=== PATIENT | female | born 1940 | race Caucasian/White ===

== ENCOUNTER 2018-06-08 10:06 | Outpatient (CLI) | payer OTHER, SELFPAY ==
[2018-06-08 13:29] LABS: ALT 20 U/L (12-78); AST 17 U/L (15-37); Albumin 3.7 g/dL (3.4-5.0); Alkaline Phosphatase 82 U/L (46-116); Anion Gap 9.9 mmol/L (3-11); BUN 14 mg/dL (7-18); Bilirubin, Total 0.7 mg/dL (0.2-1.0); CO2 27.1 mmol/L (21.0-32.0); CREATININE 1.02 mg/dL (0.55-1.02); Calcium 8.9 mg/dL (8.5-10.1); Chloride 105 mmol/L (98-107); Estimated GFR 52.69 (mL/min/1.73m2); Glucose 94 mg/dL (70-100); Potassium 4.3 mmol/L (3.5-5.1); Sodium 142 mmol/L (136-145); Total Protein 6.8 g/dL (6.4-8.2)
== END 2018-06-08 10:26 ==
DX: I10 Essential (primary) hypertension (principal)
CPT/HCPCS: 36415; 80053

== ENCOUNTER 2022-01-29 01:57 | Outpatient (CLI) | payer MEDICARE, SELFPAY ==
[2022-01-29 11:09] LABS: ALT 10 U/L (14-59); AST 12 U/L (15-37); Albumin 3.5 g/dL (3.4-5.0); Alkaline Phosphatase 93 U/L (46-116); Anion Gap 8.4 mmol/L (3-11); BUN 24 mg/dL (7-18); Bilirubin, Total 0.7 mg/dL (0.2-1.0); CO2 25.6 mmol/L (21.0-32.0); CREATININE 1.3 mg/dL (0.55-1.02); Calculated LDL 163 mg/dL (<100); Chloride 106 mmol/L (98-107); Cholesterol 237 mg/dL (<200); Estimated GFR 39.41 (mL/min/1.73m2); Glucose 94 mg/dL (74-106); HDL Cholesterol 62 mg/dL (40-60); Potassium 4.2 mmol/L (3.5-5.1); Sodium 140 mmol/L (136-145); Total Protein 7.3 g/dL (6.4-8.2); Triglyceride 62 mg/dL (<150)
== END 2022-01-29 01:58 | disposition home or self-care (01) ==
LOC: LBO 01:57
DX: I10 Essential (primary) hypertension (principal); E78.2 Mixed hyperlipidemia
CPT/HCPCS: 36415; 80053; 80061

== ENCOUNTER 2022-06-20 04:29 | Inpatient (IN) | payer MEDICARE, SELFPAY ==
[2022-06-20] VITALS (22 sets, daily range): BP systolic 76–185; BP diastolic 54–101; PULSE 52–79; RESP 16–26; TEMP 35.2–37.2; O2SAT 94–100; BMI 30.8
--- NOTE | 2022-06-20 04:28 | W.ED.GENAD ---
Discharge Plan Disposition Patient Disposition: [facility] INPATIENT Condition: Stable Discharge Details Chief Complaint: Orthopedic Clinical Impression: Femoral neck fracture Primary Care Provider: Francine Bull ED Provider: Harley Motta Home Meds and New Rx's Prescriptions: No Action acetaminophen 500 mg tablet 500 mg PO TID PRN PRN lisinopril 20 mg tablet 20 mg PO DAILY Qty: 90 3RF triamcinolone acetonide 0.1 % cream 1 applic topical BID Qty: 30 2RF Rx Instructions: Apply thin layer to leg rash 2x per day for up to 2 weeks amlodipine 5 mg tablet 5 mg PO DAILY Qty: 90 3RF Medical Decision Making 81-year-old female presents after mechanical fall from standing, fell on her left side, pain to left hip, foreshortened and externally rotated left lower extremity, DP pulse intact, sensation intact warm well perfused, able to wiggle toes, high clinical suspicion for hip fracture versus dislocation. No loss of conscious no head trauma or thoracoabdominal trauma. Will obtain admission labs, COVID swab, x-ray pelvis and x-ray femur, likely admission for orthopedic evaluation. We will start with analgesia and anti-inflammatory here 6: 07 evidence of left femoral neck fracture, neurovascular exam of limb intact. Controlling pain with Toradol and morphine. Patient is NPO. Discussed case with Dr. Aquino, patient to be admitted to medical service for preop management HPI General Date/Time Provider Initiated Documentation: 06/20/22 04:53. HPI Narrative: 81-year-old female presents after mechanical fall from standing while getting up to close the door of the restroom this evening, fell on her left side pain to her left hip, brought in by EMS. Patient denies loss of consciousness or other injuries. Denies blood thinner use. Related Data Home Medications Medication Instructions Recorded Confirmed acetaminophen 500 mg tablet 500 mg PO TID PRN PRN 02/05/22 06/20/22 triamcinolone acetonide 0.1 % 1 applic topical BID #30 grams 02/07/22 06/20/22 topical cream amlodipine 5 mg tablet 5 mg PO DAILY #90 tabs 05/15/22 06/20/22 lisinopril 20 mg tablet 20 mg PO DAILY #90 tabs 05/23/22 06/20/22 Previous Rx's Medication Instructions Recorded triamcinolone acetonide 0.1 % 1 applic topical BID #30 grams 02/07/22 topical cream amlodipine 5 mg tablet 5 mg PO DAILY #90 tabs 05/15/22 lisinopril 20 mg tablet 20 mg PO DAILY #90 tabs 05/23/22 Allergies Allergy/AdvReac Type Severity Reaction Status Date / Time Penicillins Allergy Unknown Verified 05/23/22 09:16 Review of Systems Narrative: Review of Systems Constitutional: negative Eyes: negative ENT: negative Cardiovascular: negative Respiratory: negative Gastrointestinal: negative : negative Musculoskeletal: Left hip pain Skin: negative Neurologic: negative Psych: negative PFSH All Active Problems (Updated 06/20/22 @ 06:08 by Harley Motta MD) Femoral neck fracture (Acute) Dermatitis (Acute) Obesity (BMI 30.0-34.9) (Chronic) Arthritis (Chronic) HTN (hypertension) (Chronic) Numbness and tingling (Chronic) Hyperlipidemia (Chronic) 01/2022 Lipids=45% calc. risk (BP not well controlled & declines statin in past) Medical History (Updated 06/20/22 @ 06:08 by Harley Motta MD) Breast lump or mass (07/24/04) left breast lump--mammo [place] [facility] [place] 04/2005 Right lumbar radiculopathy Tobacco use disorder quit 2004 Family History Mother , AGE 72 Osteoporosis Father , AGE 72 Diabetes Essential hypertension Heart disease Myocardial infarction Stroke Asthma Sister Heart disease Sister Essential hypertension Sister Essential hypertension Sister Essential hypertension Sister Essential hypertension Brother Essential hypertension Brother Essential hypertension Son No problems noted. Son Hyperlipidemia Son Asthma Daughter No problems noted. Brother No problems noted. 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 Pets and animals: Yes Pets and animals: cat(s) and dog(s) Sexually active: No Do you think of yourself as: straight/heterosexual Current gender identity: female What is your relationship status?: How often do you talk on the phone with friends or family?: once per week How often do you get together with friends or relatives?: decline to answer How often do you attend jain or taoist services?: decline to answer Do you belong to any clubs or organized social groups?: no Panel score (0-1 are the most socially isolated patients): 1 What type of physical activity do you participate in: walking Duration: < 15 minutes/day Frequency: 3-4 times per week Anna/Adventist: Adventism Special anna needs: No Seatbelt use: always Helmet use: Yes Helmet use: always Do you feel safe at home: Yes Do you feel safe in your relationship?: Yes Exam Narrative Exam Narrative: Physical Examination General: alert, awake, cooperative, resting comfortably, no acute distress HEENT: normocephalic, atraumatic; PERRL, EOM intact, conjunctiva normal; no nasal discharge; moist mucous membranes, oral and pharyngeal mucosa normal, tolerating secretions Neck: supple, trachea midline; full ROM Chest: normal to inspection Respiratory: normal respiratory effort, speaking in full sentences, clear to auscultation, no wheezing, rales or rhonchi Cardiac: regular rate, regular rhythm, S1S2 intact, no murmurs rubs or gallops GI: abdomen soft, non-tender, non-distended; no palpable mass or hepatosplenomegaly Skin: no lesions, rashes or trauma appreciated Neuro: AAOx3, normal speech, no focal deficits Extremities: Foreshortened externally rotated left lower extremity, DP pulse intact, sensation intact motor and sensation foot intact Psych: Appropriate mood and affect
[2022-06-20] MEDS: Ketorolac 15 MG/ML VIAL IVP (04:36)
[2022-06-20] MEDS: MORPHine 4 MG/ML SYR 2 MG IVP (04:37)
[2022-06-20] MEDS: Ondansetron 4 MG/2 ML VIAL IVP (04:38)
[2022-06-20 04:42] LABS: Source Nasopharynx
[2022-06-20 04:43] LABS: Abs Immature Grans 0.04 10^3/uL (0.0-0.06); Absolute Basophil Count 0.04 10^3/uL (0.0-0.2); Absolute Eosinophil Count 0.07 10^3/uL (0.0-0.7); Absolute Monocyte Count 0.59 10^3/uL (0.1-0.8); Absolute Neutrophil Count 8.25 10^3/uL (1.2-6.7); Basophils % 0.4; Eosinophils % 0.7; HGB 13.2 g/dL (11.2-15.7); Immature Grans % 0.4; Lymphocytes % 10.9; MCHC 32.2 % (32.0-36.0); MCV 90 fL (80-95); MPV 8.8 fL (8.0-11.0); Monocytes % 5.8; Neutrophils % 81.8; Platelet Count 439 10^3/uL (130-400); RBC 4.55 10^6/uL (3.93-5.22); RDW-SD 42.7 fL; WBC 10.09 10^3/uL (4.4-10.8)
[2022-06-20 04:59] LABS: ALT 14 U/L (14-59); AST 22 U/L (15-37); Albumin 3.3 g/dL (3.4-5.0); Alkaline Phosphatase 94 U/L (46-116); Anion Gap 12.3 mmol/L (3-11); BUN 23 mg/dL (7-18); Bilirubin, Total 0.4 mg/dL (0.2-1.0); CO2 20.7 mmol/L (21.0-32.0); CREATININE 1.4 mg/dL (0.55-1.02); Calcium 9.5 mg/dL (8.5-10.1); Chloride 102 mmol/L (98-107); Estimated GFR 38.03 (mL/min/1.73m2); Glucose 139 mg/dL (74-106); Potassium 4.1 mmol/L (3.5-5.1); Sodium 135 mmol/L (136-145)
[2022-06-20 05:14] LABS: COVID-19 PCR Negative (Negative)
--- NOTE | 2022-06-20 05:30 | DI.RAD_ITS ---
Exam(s) XR PELVIS AP XR FEMUR LT EXAM: XR PELVIS AP and x-ray femur LT CLINICAL HISTORY: fall, concern for left hip fracture v dislocation. TECHNIQUE: 2D digital imaging was performed. Six images were obtained. COMPARISON: None. FINDINGS: BONES: There is an acute fracture of the left femoral neck. The femoral head remains seated within t he acetabulum. No other fractures identified. No bony destructive lesion is seen. JOINTS: No dislocation present. No joint space narrowing is present. SOFT TISSUE: Atherosclerosis is present. IMPRESSION: Acute left femoral neck fracture. DATA REPOSITORY: RADIATION DOSE DELIVERED:
--- NOTE | 2022-06-20 05:46 | DI.VRAD_ITS ---
PROCEDURE INFORMATION: Exam: XR Pelvis Exam date and time: 06/20/2022 5:11 AM Age: 81 years old Clinical indication: Injury or trauma; Fall; Blunt trauma (contusions or hematomas); Left; Hip; Injury date: 06/20/22 TECHNIQUE: Imaging protocol: Radiologic exam of the pelvis. Views: 1 or 2 view. COMPARISON: No relevant prior studies available. Reviewed in conjunction with concurrent x-ray examination of the left femur. FINDINGS: Bones/joints: Acute basicervical fracture of left femur. No subluxation. Degenerative changes of the hip joints. Soft tissues: Unremarkable. IMPRESSION: Acute left hip fracture. Dictated and Authenticated by: Barry Laboy MD. Ordering:SARAH Souza MD
--- NOTE | 2022-06-20 05:48 | DI.VRAD_ITS ---
PROCEDURE INFORMATION: Exam: XR Left Femur Exam date and time: 06/20/2022 5:12 AM Age: 81 years old Clinical indication: Injury or trauma; Fall; Blunt trauma; Hip; Left; Injury date: 06/20/22 TECHNIQUE: Imaging protocol: Radiologic exam of the Left femur. Views: 2 views. COMPARISON: CR XR PELVIS AP 06/20/2022 5:11 AM FINDINGS: Bones/joints: Acute basicervical fracture. No subluxation. Degenerative changes of hip and knee joints. Soft tissues: Vascular calcifications. IMPRESSION: Acute basicervical fracture of the femur. Dictated and Authenticated by: Barry Laboy MD. Ordering:SARAH Souza MD
[2022-06-20] MEDS: MORPHine 10 MG/ML VIAL 2 MG IVP (06:03)
--- NOTE | 2022-06-20 07:14 | W.PM.HP.N ---
Date of service: 06/20/22 Time of Service: 07:15 Assessment and Plan Assessment and plan (1) Femoral neck fracture: Status: Acute Assessment and plan: proceed w/ operative repair of hip; use SCD preop; lovenox post op for dvt prophylaxis, PPI for GI protection, scheduled Tylenol and prn morphine for pain; prn antiemetics; IS and Acapella for pulmonary toiletry Professional time spent interviewing and examining patient, discussion of goals of care with hospital team ( nursing and consulting professionals, patient and family) was 60 minutes. (2) HTN (hypertension): Status: Chronic Assessment and plan: hold lisinopril perioperatively but continue amlodipine; I would recommend perioperative use of lopressor for BP control however, patient has LAFB and incomplete RBBB on her EKG and she was given a partial dose of lopressor and received only about 3 mg of a 5 mg dose and experience immediate bradycardia down to 52 bpm. I would avoid AV mehran blocking drugs. If BP becomes a problem perioperatively she can receive nicardipine; however, I will give her amlodipine preoperatively. Post operatively she can resume her lisinpril. 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 If parenteral medications for blood pressure control are needed I would use a vasodilator that does not have any AV mehran blocking activity. She has no old EKG on file to compare with therefore we have no time frame in which she developed this AV mehran defect. (4) Hyperlipidemia: Status: Chronic Assessment and plan: not being treated currently, formerly treated w/ lipitor and prior to that simvastatin. Qualifiers: Hyperlipidemia type: mixed hyperlipidemia Qualified Code(s): E78.2 - Mixed hyperlipidemia History of Present Illness History of Present Illness Chief Complaint: left hip fracture Narrative: 81 yr female w/ PMH of HTN whoh had mechanical fall and sustained left femoral neck fracture. Dr. Aquino was notified by Dr. Metz from [facility] ED and per Dr. Metz, Dr. Aquino requested patient admission to hospitalist service. The plan is for surgical repair later today. Patient denies any syncope or presyncopal symptoms but states that she was returning to the bedroom from the bathroom when she lost her balance and fell to the floor on her left side. She struck the vanity on the way down but did not sustain any head or neck injuries. She denies any symptoms of palpitations, or dyspnea or chest pain. Prior to her fall she states that she has had no exertional dyspnea or chest discomfort w/ her ADL's or w/ grocery shopping or her usual housework. She denies any cardiac hx such as ND, CVA, CHF, and denies any DM. She has never had surgery and therefore does not know if she has had any complications from anesthesia. She is a former smoker who quit about 6 yrs ago, smoking < 1/2 ppd x 20-30 yrs. She drinks wine w/ meals about one small glass per evening. No hx of withdrawal. Note: I called her PCP office at [facility] to try to get any old EKG to compare to today's EKG. None on file. However, contrary to patient's hx she did have surgery. She had bilateral catarract surgery by Dr. Wells in 2016. Review of Systems Constitutional Constitutional: Reports as per HPI Eyes Eyes: Reports system reviewed and no additional complaints, except as documented ENT Ears, Nose, Mouth, and Throat: Reports system reviewed and no additional complaints, except as documented, Denies dysphagia, Denies odynophagia and Denies throat swelling Cardiovascular Cardiovascular: Denies chest pain, Denies chest pain with activity, Denies irregular heart rhythm, Denies lightheadedness, Denies radiating jaw, neck or arm pain and Denies dyspnea on exertion Respiratory Respiratory: Denies cough and Denies dyspnea on exertion Gastrointestinal Gastrointestinal: Reports system reviewed and no additional complaints, except as documented, Denies dysphagia and Denies odynophagia Genitourinary Genitourinary: Reports system reviewed and no additional complaints, except as documented Musculoskeletal Musculoskeletal: Reports as per HPI, Reports arthralgias and Reports radiating pain into limb Integumentary/Breasts Skin/Breast: Reports system reviewed and no additional complaints, except as documented Neurologic Neurologic: Reports system reviewed and no additional complaints, except as documented Endocrine Endocrine: Reports system reviewed and no additional complaints, except as documented Hematologic/Lymphatic Hematologic/Lymphatic: Reports system reviewed and no additional complaints, except as documented Allergic/Immunologic Allergic/Immunologic: Reports system reviewed and no additional complaints, except as documented and Denies throat swelling PFSH All Active Problems (Updated 06/20/22 @ 08:42 by Michael Campos MD) 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 risk (BP not well controlled & declines statin in past) Medical History (Updated 06/20/22 @ 08:42 by Michael Campos MD) Breast lump or mass (07/24/04) left breast lump--mammo and [place] [facility] [place] breast clinic 04/2005 Right lumbar radiculopathy Tobacco use disorder quit 2004 Surgical History (Updated 06/20/22 @ 09:07 by Michael Campos MD) H/O bilateral cataract extraction (~09/2016) Family History Mother , AGE 72 Osteoporosis Father , AGE 72 Diabetes Essential hypertension Heart disease Myocardial infarction Stroke Asthma Sister Heart disease Sister Essential hypertension Sister Essential hypertension Sister Essential hypertension Sister Essential hypertension Brother Essential hypertension Brother Essential hypertension Son No problems noted. Son Hyperlipidemia Son Asthma Daughter No problems noted. Brother No problems noted. 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 Pets and animals: Yes Pets and animals: cat(s) and dog(s) Sexually active: No Do you think of yourself as: straight/heterosexual Current gender identity: female What is your relationship status?: How often do you talk on the phone with friends or family?: once per week How often do you get together with friends or relatives?: decline to answer How often do you attend mandaen or shinto services?: decline to answer Do you belong to any clubs or organized social groups?: no Panel score (0-1 are the most socially isolated patients): 1 What type of physical activity do you participate in: walking Duration: < 15 minutes/day Frequency: 3-4 times per week Anna/Advent: Lutheran Special anna needs: No Seatbelt use: always Helmet use: Yes Helmet use: always Do you feel safe at home: Yes Do you feel safe in your relationship?: Yes Meds Allergies and Home Medications Allergies Allergy/AdvReac Type Severity Reaction Status Date / Time Penicillins Allergy Unknown Verified 05/23/22 09:16 Home Medications Medication Instructions Recorded Confirmed Type acetaminophen 500 mg tablet 500 mg PO TID PRN PRN 02/05/22 06/20/22 History triamcinolone acetonide 0.1 % 1 applic topical BID #30 grams 02/07/22 06/20/22 Rx topical cream amlodipine 5 mg tablet 5 mg PO DAILY #90 tabs 05/15/22 06/20/22 Rx lisinopril 20 mg tablet 20 mg PO DAILY #90 tabs 05/23/22 06/20/22 Rx Exam Narrative Exam Narrative: Elderly white female lying in bed in no distress but uncomfortable from her left hip fracture. She is alert and oriented person place time circumstance. HEENT remarkable for upper and lower dentures, Mallampati class III voluntary opening of her oral cavity, no exudate normal symmetrical movement of her palate and her uvula and normal movement of her tongue, no visible scalp wound or tenderness Neck is supple no JVD normal carotid pulses no bruits nontender with normal range of motion Lungs are clear to auscultation Heart is regular without appreciable murmur rub or gallop or thrill Abdomen soft nontender no organomegaly no bruits no masses Lower extremities left leg is internally rotated and foreshortened there is tenderness over the femoral neck she has venous varicosities in both legs and has normal palpable pedal pulses and neurovascular status is intact with normal sensation to light touch. I did not do reflexes on the left leg due to her femoral neck fracture. Neuro exam grossly intact no focal cranial nerve deficits no focal motor or sensory deficits although manual motor exam was not performed on the left lower extremity. Results Imaging EKG: image reviewed (EKG demonstrates sinus rhythm rate of 70 bpm with probable left atrial enlargement, left anterior fascicular block and incomplete right bundle branch block. Nonspecific T wave inversions in 1 and aVL) Imaging Studies: X-ray left femur and pelvis demonstrated acute left hip fracture involving the left femoral neck Labs Result diagrams: 06/20/22 04:35 06/20/22 04:35 Labs: Laboratory Results - last 24 hr 06/20/22 06/20/22 06/20/22 04:35 04:35 04:35 WBC 10.09 RBC 4.55 Hgb 13.2 Hct 41.0 MCV 90 MCH 29.0 MCHC 32.2 RDW 13.0 Plt Count 439 H MPV 8.8 Immature Gran % 0.4 Neutrophils % 81.8 Lymphocytes % 10.9 Monocytes % 5.8 Eosinophils % 0.7 Basophils % 0.4 Nucleated RBC % 0.0 Absolute Neutrophils 8.25 H Absolute Lymphocytes 1.10 L Absolute Monocytes 0.59 Absolute Eosinophils 0.07 Absolute Basophils 0.04 Sodium 135 L Potassium 4.1 Chloride 102 Carbon Dioxide 20.7 L Anion Gap 12.3 H BUN 23 H Creatinine 1.4 H Est GFR (CKD-EPI 2020) 38.03 Glucose 139 H Calcium 9.5 Total Bilirubin 0.4 AST 22 ALT 14 Alkaline Phosphatase 94 Total Protein 8.0 Albumin 3.3 L COVID-19 Source Nasopharynx SARS-CoV-2 (PCR) Negative Last Vital Signs Temp 37.1 C 06/20/22 06:50 Pulse 65 06/20/22 06:50 Resp 20 06/20/22 06:50 BP 185/89 H 06/20/22 06:50 Pulse Ox 99 06/20/22 06:50
--- NOTE | 2022-06-20 07:22 | ANES.PREOP_ITS ---
General Info Date of Service Date Performed: 06/20/22 Height: 5 ft 2 in Weight: 76.374 kg Body Mass Index (BMI): 30.8 Surgical Procedure: Operation Date: 06/20/22 14:40 Proposed Procedure Side Surgeon p Hip Uni/Bipolar Left Bennett Aquino MD Meds Allergies and Home Medications Allergies Allergy/AdvReac Type Severity Reaction Status Date / Time Penicillins Allergy Unknown Verified 05/23/22 09:16 Home Medication Medication Instructions Recorded acetaminophen 500 mg tablet 500 mg PO TID PRN PRN 02/05/22 triamcinolone acetonide 0.1 % 1 applic topical BID #30 grams 02/07/22 topical cream amlodipine 5 mg tablet 5 mg PO DAILY #90 tabs 05/15/22 lisinopril 20 mg tablet 20 mg PO DAILY #90 tabs 05/23/22 Current Visit Medications: Current Medications Generic Name Dose Route Start Last Admin Trade Name Freq PRN Reason Stop Dose Admin Acetaminophen 0 mg 06/20/22 07:06 Acetaminophen 325 Mg Tab PO Q4H PRN PRN Al Hydrox/Mg Hydrox/Simethicone 30 ml 06/20/22 07:06 Mylanta Suspension 30 Ml Cup PO Q2H PRN PRN Amlodipine Besylate 5 mg 06/20/22 08:30 Amlodipine 5 Mg Tab PO DAILY MARIE Dimethicone/Zinc Oxide 0 gm 06/20/22 07:06 Robert Protect Cream 142 Gm Tube TP PRN PRN Docusate Sodium 100 mg 06/20/22 07:06 Docusate Sodium 100 Mg Cap PO TID PRN PRN Sodium Chloride 500 mls @ 0 mls/hr 06/20/22 06:03 Saline 500ml Bag IV PRN PRN As Directed Ringer's Solution 1,000 mls @ 80 mls/hr 06/20/22 07:15 IV [facility] IV Miscellaneous Supplies 1 each 06/20/22 06:15 Iv Access IV DIRECTED MARIE Magnesium Hydroxide 30 ml 06/20/22 07:06 Milk Of Magnesia 30 Ml Cup PO DAILY PRN PRN Metoprolol Tartrate 5 mg 06/20/22 07:30 Metoprolol 5 Mg/5 Ml Vial IVP Q6H MARIE Pantoprazole Sodium 40 mg 06/20/22 07:30 Pantoprazole 40 Mg Vial IVP Q24H MARIE Polyethylene Glycol 17 gm 06/20/22 07:06 Polyethylene Glycol 3350 17 Gm Packet PO DAILY PRN PRN Constipation Sodium Chloride 0 ml 06/20/22 06:03 Normal Saline Flush 10 Ml Syr IVP PRN PRN PFSH Active Problems Active Problems: Problem Status Onset Code Femoral neck fracture S72.009A Dermatitis L30.9 Obesity (BMI 30.0-34.9) E66.9 Arthritis M19.90 HTN (hypertension) I10 Numbness and tingling R20.0, R20.2 Hyperlipidemia E78.5 Medical History Medical History Breast lump or mass (07/24/04) left breast lump--mammo and [place]/S at [facility] 04/2005 Right lumbar radiculopathy Tobacco use disorder quit 2004 Tobacco Smoking/Tobacco Use Status: Former Tobacco Use Passive smoking exposure: Yes Second hand exposure: Yes Alcohol Alcohol Intake: current Alcohol intake frequency: 3 or more drinks per day Alcohol type: wine and hard liquor Substance Use Substance use: Never Substance use type: does not use Vital Signs and Lab Results Vital Signs Most Recent Vital Signs in EMR: Most Recent Vital Signs Temp Pulse Resp BP Pulse Ox 37.1 C 67 16 185/89 H 99 06/20/22 06:58 06/20/22 06:58 06/20/22 06:58 06/20/22 06:58 06/20/22 06:58 Lab Results Result Diagrams: 06/20/22 04:35 06/20/22 04:35 Blood Type / Crossmatch: No Data to Display Complete Blood Count: White Blood Count 10.09 10^3/uL (4.4-10.8) 06/20/22 04:35 Red Blood Count 4.55 10^6/uL (3.93-5.22) 06/20/22 04:35 Hemoglobin 13.2 g/dL (11.2-15.7) 06/20/22 04:35 Hematocrit 41.0 % (36.0-46.0) 06/20/22 04:35 Platelet Count 439 10^3/uL (130-400) H 06/20/22 04:35 Complete Metabolic Panel: Sodium 135 mmol/L (136-145) L 06/20/22 04:35 Potassium 4.1 mmol/L (3.5-5.1) 06/20/22 04:35 Chloride 102 mmol/L (98-107) 06/20/22 04:35 Carbon Dioxide 20.7 mmol/L (21.0-32.0) L 06/20/22 04:35 BUN 23 mg/dL (7-18) H 06/20/22 04:35 Creatinine 1.4 mg/dL (0.55-1.02) H 06/20/22 04:35 Est GFR (CKD-EPI 2020) 38.03 (mL/min/1.73m2) 06/20/22 04:35 Calcium 9.5 mg/dL (8.5-10.1) 06/20/22 04:35 Albumin 3.3 g/dL (3.4-5.0) L 06/20/22 04:35 Glucose 139 mg/dL (74-106) H 06/20/22 04:35 Liver Function Panel: Alanine Aminotransferase (ALT/SGPT) 14 U/L (14-59) 06/20/22 04: 35 Aspartate Amino Transf (AST/SGOT) 22 U/L (15-37) 06/20/22 04:35 Coagulation Panel: No Data to Display Cardiac Panel: No Data to Display Arterial Blood Gas: No Data to Display Venous Blood Gas: No Data to Display Pancreas Panel: No Data to Display Thyroid Panel: 2 No Data to Display Infectious Disease: Coronavirus (COVID-19)(PCR) Negative (Negative) 06/20/22 04:35 Coronavirus 2019 Source Nasopharynx 06/20/22 04:35 Blood Cultures: No Data to Display Toxicology Panel: No Data to Display Anesthesia Assessment and Plan Anesthesia History Personal History: No History of Anesthesia Complications Family History: No Family History of Anesthesia Complications Exercise Tolerance Exercise Tolerance: Metabolic Equivalents>4 Pertinent Negatives Pertinent Negatives: No Symptoms of GERD, No Major Cardiovascular Symptoms or Complaints and No Major Pulmonary Symptoms or Complaints Cardiac & Pulmonary Exam Cardiac Exam: Normal S1/S2 Heart Sounds Pulmonary Exam: Clear Bilateral Breath Sounds Implantable Cardiac Device Does patient have a Pacemaker or an ICD?: No Airway Exam Known Difficult Airway: No Mallampati Class: 2 Mouth Opening: Normal (> 3cm) Thyromental Distance: Greater than 3 cm Neck Range of Motion: Full ROM Neck Circumference: Normal Teeth Condition: Removable Dentures/Plates Upper ASA Classification ASA Score: ASA 3 Emergency Case?: No NPO Status NPO Status: NPO Clears >2 hours, Solids >8 hours Anesthesia Plan Resuscitation Status: Full Code Anesthesia Technique: General Anesthesia Airway Planned: LMA Monitors Used: Standard Monitors
--- NOTE | 2022-06-20 07:25 | OCONE_ITS ---
Date of service: 06/20/22 Time of Service: 07:19 History of Present Illness History of Present Illness Chief Complaint: Left hip pain Narrative: Patient describes mechanical fall during the night injuring her left hip. Reports no other injuries. No pre-existing hip problems. 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 Also some scratch?related abrasions on the left lower extremity. She is a somewhat limited ambulator using a cane in the morning slowly around the home. She self limits and does not really walk long distances or engage in ambulatory exercises due to reported weakness and deconditioning. Consult Reason Left hip fracture Assessment and Plan Assessment and plan (1) Femoral neck fracture: Status: Acute Assessment and plan: 81-year-old female with displaced left femoral neck fracture Medical admission and optimization for surgery later today: Left hip hemiarthroplasty N.p.o., IV fluid, and hold chemo DVT prophylaxis The risks, benefits, and alternatives were thoroughly discussed. Patient was counseled regarding pain management, expected postoperative course, and recovery timeline. All questions were answered. Informed consent will be completed in the OR holding area Patient agrees and understands treatment plan. Will discuss with primary medical team Review of Systems All systems reviewed & are unremarkable except as noted in HPI and below PFSH All Active Problems Femoral neck fracture (Acute) Dermatitis (Acute) Obesity (BMI 30.0-34.9) (Chronic) Arthritis (Chronic) HTN (hypertension) (Chronic) Numbness and tingling (Chronic) Hyperlipidemia (Chronic) 01/2022 Lipids=45% calc. risk (BP not well controlled & declines statin in past) Medical History Breast lump or mass (07/24/04) left breast lump[place] [facility]2005 Right lumbar radiculopathy Tobacco use disorder quit 2004 Family History Mother , AGE 72 Osteoporosis Father , AGE 72 Diabetes Essential hypertension Heart disease Myocardial infarction Stroke Asthma Sister Heart disease Sister Essential hypertension Sister Essential hypertension Sister Essential hypertension Sister Essential hypertension Brother Essential hypertension Brother Essential hypertension Son No problems noted. Son Hyperlipidemia Son Asthma Daughter No problems noted. Brother No problems noted. 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 Pets and animals: Yes Pets and animals: cat(s) and dog(s) Sexually active: No Do you think of yourself as: straight/heterosexual Current gender identity: female What is your relationship status?: How often do you talk on the phone with friends or family?: once per week How often do you get together with friends or relatives?: decline to answer How often do you attend mandaeism or scientologist services?: decline to answer Do you belong to any clubs or organized social groups?: no Panel score (0-1 are the most socially isolated patients): 1 What type of physical activity do you participate in: walking Duration: < 15 minutes/day Frequency: 3-4 times per week Anna/Yarsanism: Baptist Special anna needs: No Seatbelt use: always Helmet use: Yes Helmet use: always Do you feel safe at home: Yes Do you feel safe in your relationship?: Yes Exam Narrative Exam Narrative: Awake, alert, and resting comfortably in hospital bed Demonstrates intact active motor bilateral upper extremities and right lower extremity without deformity or issues Left lower extremity shortened externally rotated, unable to actively move due to hip discomfort. Localizes about the hip joint. No discomfort or deformity about the knee or distally. Sensation intact at baseline light touch. Compartments soft. Skin with multiple abrasions from apparent scratch barger that appear as healing localized skin infections. Demonstrates intact motor foot and ankle. Breathing comfortably on room air Brisk cap refill left foot toes Results Last Vital Signs Temp 99.0 F 06/20/22 04:27 Pulse 70 06/20/22 05:45 Resp 18 06/20/22 05:45 BP 167/101 H 06/20/22 05:45 Pulse Ox 98 06/20/22 05:45 Labs Result diagrams: 06/20/22 04:35 10/27/22 04:35 Labs: Laboratory Results - last 24 hr 06/20/22 06/20/22 06/20/22 04:35 04:35 04:35 WBC 10.09 RBC 4.55 Hgb 13.2 Hct 41.0 MCV 90 MCH 29.0 MCHC 32.2 RDW 13.0 Plt Count 439 H MPV 8.8 Immature Gran % 0.4 Neutrophils % 81.8 Lymphocytes % 10.9 Monocytes % 5.8 Eosinophils % 0.7 Basophils % 0.4 Nucleated RBC % 0.0 Absolute Neutrophils 8.25 H Absolute Lymphocytes 1.10 L Absolute Monocytes 0.59 Absolute Eosinophils 0.07 Absolute Basophils 0.04 Sodium 135 L Potassium 4.1 Chloride 102 Carbon Dioxide 20.7 L Anion Gap 12.3 H BUN 23 H Creatinine 1.4 H Est GFR (CKD-EPI 2020) 38.03 Glucose 139 H Calcium 9.5 Total Bilirubin 0.4 AST 22 ALT 14 Alkaline Phosphatase 94 Total Protein 8.0 Albumin 3.3 L COVID-19 Source Nasopharynx SARS-CoV-2 (PCR) Negative
--- NOTE | 2022-06-20 07:30 | RT.EKG_ITS ---
APPROVED REPORT Exam: Resting ECG Reason for Exam: Preop EKG Patient Location: I HR:70 bpm ECG Measurements Heart Rate 70 AXIS OR 177 P -7 QRSd 114 QRS -41 QT 417 T 107 QTc 450 Conclusion Sinus rhythm...normal P axis, V-rate 50- 99 Probable left atrial enlargement...P >50mS, <-0.10mV V1 Incomplete RBBB and LAFB...axis(240,-40), S>R II III aVF LVH with secondary repolarization abnormality...multi-LVH criteria, abnrm ST-T
[2022-06-20] MEDS: Pantoprazole 40 MG VIAL IVP (07:57)
[2022-06-20] MEDS: Normal Saline Flush 10 ML SYR IVP ×2 (07:57→19:09)
[2022-06-20] MEDS: Metoprolol 5 MG/5 ML VIAL IVP (07:57)
[2022-06-20] MEDS: amLODIPine 5 MG TAB PO (08:07)
[2022-06-20] MEDS: Lactated Ringers 1,000 ML 80 ML IV ×2 (08:08→19:09)
[2022-06-20] MEDS: ACETAMINOPHEN 1,000 MG/100 ML BTL 400 MG IVPB (08:08)
[2022-06-20 09:03] LABS: Lab Add On Test DONE
[2022-06-20 09:17] LABS: Creatine Kinase 83 U/L (26-192)
--- NOTE | 2022-06-20 10:04 | PDOC.CMIN ---
<Lydia Gamino RN - Last Filed: 06/20/22 10:04> - If Service Date Differs Date of service: 06/20/22 Time of Service: 10:04 Care Management Initial Assess REASON FOR HOSPITALIZATION:: Femoral neck fracture PAST MEDICAL HISTORY/PAST SURGICAL HISTORY:: All Active Problems . Femoral neck fracture (Acute). Dermatitis (Acute). Obesity (BMI 30.0-34.9) (Chronic). Arthritis (Chronic). HTN (hypertension) (Chronic). Numbness and tingling (Chronic). Hyperlipidemia (Chronic). 01/2022 Lipids=45% calc. risk (BP not well controlled & declines statin in past). Medical History . Breast lump or mass (07/24/04). left breast lump--mammo and [place]/S at [facility] [place] breast clinic 04/2005. Right lumbar radiculopathy. Tobacco use disorder. quit 2004 PREVIOUS FUNCTIONAL STATUS/SOCIAL/FAMILY SUPPORTS:: Lisa lives in [place] with her Raheel. ADVANCE DIRECTIVES:: On file, [facility]el [employer] Has patient been provided with info about the portal/API?: Yes Did the patient sign up for the portal?: Yes (Prior to admission) CODE STATUS:: Full Code INSURANCE COVERAGE / FINANCIAL ISSUES:: AARP. Medicare. [facility] PRIMARY CARE PHYSICIAN:: [facility] POTENTIAL DISCHARGE NEEDS:: Follow up appointment with PCP and ortho. [facility] PT PATIENT/FAMILY EDUCATION NEEDS:: Review discharge instructions, limitations, medications and plan to follow up with community providers. Discuss ask me three and goals of self care. TRANSPORTATION:: Via private vehicle with family. PLAN:: Anticipate Lisa (Alma Rosa) will discharge home with new [facility] PT (if indicated) when medically ready per Ortho. Alma Rosa will follow her discharge plan of care as prescribed and follow up with community providers. <Noemy Murphy - Last Filed: 06/20/22 14:00> Care Management Initial Assess CURRENT FUNCTIONAL STATUS:: Alma Rosa will be brought to the OR at 1500 today for L Hip fix. CM continues to follow.
--- NOTE | 2022-06-20 13:33 | PHA.REVIEW2 ---
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 (Acute) Femoral neck fracture (Acute) Penicillins Allergy (Unknown, Verified 05/23/22 09:16) Resuscitation Status Full Code Height 5 ft 2 in Weight 76.374 kg - Renal Dosing Renal Dosing: BUN 23 mg/dL (7-18) H 06/20/22 04:35 Creatinine 1.4 mg/dL (0.55-1.02) H 06/20/22 04:35 Medications needing adjustments: Reviewed (Crcl ~30.67 mL/min Goombals okay) - Anticoagulation Anticoagulation: Hgb 13.2 g/dL (11.2-15.7) 06/20/22 04:35 Hct 41.0 % (36.0-46.0) 06/20/22 04:35 Plt Count 439 10^3/uL (130-400) H 06/20/22 04:35 Creatinine 1.4 mg/dL (0.55-1.02) H 06/20/22 04:35 DVT Prophylaxis: Reviewed (Has SCDs ordered, plan is for the pt to go to the OR this afternoon, watch for possible anticoagulation postoperatively.) Therapeutic Anticoagulation: N/A - Opiate Usage Evaluate Pain Scale/Pains Meds: Reviewed Scheduled Bowel Reg ordered if on Opiates?: No (has PRN meds ordered) - Relevant Labs Sodium 135 mmol/L (136-145) L 06/20/22 04:35 Potassium 4.1 mmol/L (3.5-5.1) 06/20/22 04:35 Chloride 102 mmol/L (98-107) 06/20/22 04:35 Electrolytes, C-Reactive P, ESR: Reviewed - DM Control DM Control: Glucose 139 mg/dL (74-106) H 06/20/22 04:35 DM Control: N/A - Cardiac Review BP, HR, EF%: Reviewed (BP has been elevated most of admission, currently only one of her home BP meds is ordered (H&P notes resuming lisinopril postoperatively)) - Qtc Review QTc: N/A - IV to PO Switch IV Medications: Reviewed - Home Meds Home Med List reviewed: Reviewed Relevent Home Meds Not ordered & why?: lisinopril - Current meds Current Medication Order Review: Reviewed - Comments Comments/Follow Ups: Watch BP, SCr, labs and for med changes (possible renal dose adjustments, IV to PO once no longer NPO).
[2022-06-20] MEDS: MORPHine 2 MG/ML SYR IVP ×2 (14:59→19:09)
--- NOTE | 2022-06-20 15:45 | DI.RAD_ITS ---
Exam(s) XR HIP LT COMPLETE AP PELVIS EXAM: XR HIP LT COMPLETE AP PELVIS CLINICAL HISTORY: Postop. TECHNIQUE: 2D digital imaging was performed of the left hip. Two views were obtained. AP pelvis an d lateral left hip views were obtained. COMPARISON: CR,XR XR FEMUR LT from 06/20/2022 FINDINGS: BONES: No acute fracture is present. No bony destructive lesion is seen. JOINTS: The patient is now status post left hip replacement. The orthopedic hardware appears in good position. SOFT TISSUE: Postsurgical changes are seen in the soft tissues. IMPRESSION: Status post left hip arthroplasty. DATA REPOSITORY: RADIATION DOSE DELIVERED:
--- NOTE | 2022-06-20 15:56 | W.PM.OP ---
Date of service: 06/20/22 Time of Service: 16:00 Operative Note Operative Note DATE OF PROCEDURE: 06/20/22 PRE-OP DIAGNOSIS: Left displaced femoral neck fracture PROCEDURE: Left posterior hip hemiarthroplasty SURGEON: Bennett Aquino ADMINISTRATIVE PROGRAM SPECIALIST: Arpita Macario ANESTHESIA TYPE: Local By Surgeon and General LMA/ETT Refer to Anesthesia Record ESTIMATED BLOOD LOSS: 150 COMPLICATIONS: None Patient was transported to: PACU Patient's condition: stable Implants: DePuy Corail press fit femoral stem size 10 standard with 46 mm unipolar head -3 mm length Procedure Description: In the operating room, general anesthesia was induced. The patient was transferred and positioned laterally on the operating room table. All bony prominences were well-padded. Preoperative antibiotics were administered as well as 1 g of TXA. The left hip was prepped and draped in the usual sterile fashion. The correct patient, procedure, and side of the procedure were all verified prior to incision. The posterior lateral approach to left hip was utilized. 30 cc of 0.25% bupivacaine containing epinephrine was infiltrated about the incision. Deeply, care was taken to protect the sciatic nerve. The short external rotators and capsule were reflected off the femoral neck and tagged for retraction and later repair. The femoral neck fracture was cut to an appropriate length and to match the desired implant. The femoral head was removed from the acetabulum and measured on the back table. All bony debris was removed from the wound. The proximal femoral canal was sequentially opened and broached with the appropriate lateralization and anteversion until there was a relatively solid fit. Trial reduction with a standard offset +0 mm length head had a difficult reduction and length centimeters long so a -3 mm length head was tried with good suction seal and stability throughout physiologic range of motion. The trial implants were removed. The femoral stem was then impacted to the appropriate depth. The last used femoral head was trialed and found to have excellent stability throughout supra-physiologic range of motion including vulnerable positions. The hip was dislocated and the trial head was removed. The trunnion was dried, and the final femoral head was impacted, reduced into the acetabulum, and found to have excellent stability. The wound was copiously irrigated with Betadine and normal saline. The short external rotators were repaired using SutureTape through bone tunnels in the greater trochanter. Distally, the IT band fascia was closed using #1 Vicryl in an interrupted fashion. Proximally, the gluteus betsy muscle fascia was closed using 0 Vicryl in a running fashion. The superficial wound was irrigated with normal saline. Subcutaneous tissue was closed using 2-0 Monocryl in a buried interrupted fashion. Skin was closed using 3-0 Monocryl in a buried subcuticular buried fashion. Skin was sealed with skin glue. A silver impregnated bandage was applied over the wound. The patient awoke from anesthesia without complication and was transferred to the recovery room in a stable condition.
[2022-06-20] MEDS: ceFAZolin 2 GM/50 ML BAG 50 GM (16:10)
[2022-06-20] MEDS: Tranexamic Acid 1,000 MG/10 ML VIAL 1000 MG (16:15)
[2022-06-20] MEDS: Bupivacaine 0.5% Pres-Free W/EPI 30 ML VIAL (16:38)
[2022-06-20] MEDS: ePHEDrine 25 MG/5 ML Syringe IVP (18:30)
--- NOTE | 2022-06-20 18:32 | W.PM.PROGNOT ---
Date of Service Date of service: 06/20/22 Time of Service: 18:25 Assessment and Plan Assessment and plan (1) Femoral neck fracture: Status: Acute Assessment and plan: 81-year-old female postop day #0 status post left hip hemiarthroplasty Complete 24 hours postoperative antibiotics Discontinue Felder catheter postop day #1 Pain control-Multimodal Physical therapy ordered: Weightbearing as tolerated with assist device. Avoid provocative positions of deep flexion with internal rotation and adduction. May start chemical DVT prophylaxis tomorrow assuming hemodynamically stable Continue mechanical DVT prophylaxis with SCDs and/or JAMAAL hose I will see the patient tomorrow Discharge when medically appropriate Follow-up with Dr. Aquino outpatient [facility] in 2 to 3 weeks Appreciate medical management Discussed with patient's Subjective Subjective Interval history since last seen: Sleeping/resting comfortably PACU Exam Narrative Exam Narrative: Left hip dressing clean dry intact. All compartments soft. Leg lengths roughly equal. Brisk cap refill distally. Objective Last Vital Signs Temp 97.3 F L 06/20/22 14:45 Pulse 53 L 06/20/22 14:45 Resp 16 06/20/22 14:45 BP 137/88 06/20/22 14:45 Pulse Ox 95 06/20/22 14:45 Laboratory Results - last 24 hr 06/20/22 06/20/22 06/20/22 04:35 04:35 04:35 WBC 10.09 RBC 4.55 Hgb 13.2 Hct 41.0 MCV 90 MCH 29.0 MCHC 32.2 RDW 13.0 Plt Count 439 H MPV 8.8 Immature Gran % 0.4 Neutrophils % 81.8 Lymphocytes % 10.9 Monocytes % 5.8 Eosinophils % 0.7 Basophils % 0.4 Nucleated RBC % 0.0 Absolute Neutrophils 8.25 H Absolute Lymphocytes 1.10 L Absolute Monocytes 0.59 Absolute Eosinophils 0.07 Absolute Basophils 0.04 Sodium 135 L Potassium 4.1 Chloride 102 Carbon Dioxide 20.7 L Anion Gap 12.3 H BUN 23 H Creatinine 1.4 H Est GFR (CKD-EPI 2020) 38.03 Glucose 139 H Calcium 9.5 Total Bilirubin 0.4 AST 22 ALT 14 Alkaline Phosphatase 94 Creatine Kinase Total Protein 8.0 Albumin 3.3 L COVID-19 Source Nasopharynx SARS-CoV-2 (PCR) Negative Add-On Test Request 06/20/22 06/20/22 04:35 04:35 WBC RBC Hgb Hct MCV MCH MCHC RDW Plt Count MPV Immature Gran % Neutrophils % Lymphocytes % Monocytes % Eosinophils % Basophils % Nucleated RBC % Absolute Neutrophils Absolute Lymphocytes Absolute Monocytes Absolute Eosinophils Absolute Basophils Sodium Potassium Chloride Carbon Dioxide Anion Gap BUN Creatinine Est GFR (CKD-EPI 2020) Glucose Calcium Total Bilirubin AST ALT Alkaline Phosphatase Creatine Kinase 83 Total Protein Albumin COVID-19 Source SARS-CoV-2 (PCR) Add-On Test Request DONE
[2022-06-20] MEDS: ceFAZolin 1 GM/50 ML BAG IV (21:37)
[2022-06-21] VITALS (8 sets, daily range): BP systolic 111–143; BP diastolic 74–87; PULSE 61–68; RESP 16–19; TEMP 36–36.9; O2SAT 95–98
[2022-06-21] MEDS: ACETAMINOPHEN 1,000 MG/100 ML BTL 400 MG IVPB ×2 (00:03→08:19)
--- NOTE | 2022-06-21 07:46 | W.PM.PROGNOT ---
Date of Service Date of service: 06/21/22 Time of Service: 07:00 Assessment and Plan Assessment and plan (1) Femoral neck fracture: Status: Acute Assessment and plan: 81-year-old female postop day #1 status post left hip hemiarthroplasty Complete 24 hours postoperative antibiotics Discontinue Felder catheter Pain control-Multimodal Physical therapy ordered: Weightbearing as tolerated with assist device. Avoid provocative positions of deep flexion with internal rotation and adduction. May start chemical DVT prophylaxis assuming hemodynamically stable Continue mechanical DVT prophylaxis with SCDs and/or JAMAAL hose Discharge when medically appropriate Follow-up with Dr. Aquino outpatient [facility] in 2 to 3 weeks Appreciate medical management Subjective Subjective Interval history since last seen: Feeling well, more comfortable, resting without issues. No major complaints about hip or otherwise Exam Narrative Exam Narrative: Left hip dressing clean dry intact. All compartments soft. Leg lengths roughly equal. Brisk cap refill distally. Sensation intact throughout light touch. Demonstrates weak quadriceps isometric firing. Feels like she is conversant and mentating about at her baseline Objective Last Vital Signs Temp 97.5 F L 06/21/22 07:41 Pulse 61 06/21/22 07:41 Resp 17 06/21/22 07:41 BP 143/74 H 06/21/22 07:41 Pulse Ox 97 06/21/22 07:41 Laboratory Results - last 24 hr 06/20/22 06/20/22 04:35 04:35 Creatine Kinase 83 Add-On Test Request DONE
[2022-06-21] MEDS: ceFAZolin 1 GM/50 ML BAG IV ×2 (08:20→14:45)
[2022-06-21] MEDS: amLODIPine 5 MG TAB PO (08:20)
[2022-06-21] MEDS: Heparin 5,000 UNITS/ML VIAL 5000 UNITS SC ×3 (08:20→23:49)
[2022-06-21] MEDS: Pantoprazole 40 MG VIAL IVP (08:21)
[2022-06-21 08:49] LABS: Abs Immature Grans 0.03 10^3/uL (0.0-0.06); Absolute Basophil Count 0.03 10^3/uL (0.0-0.2); Absolute Eosinophil Count 0.01 10^3/uL (0.0-0.7); Absolute Neutrophil Count 8.89 10^3/uL (1.2-6.7); Basophils % 0.3; Eosinophils % 0.1; HCT 37.9 % (36.0-46.0); HGB 12.1 g/dL (11.2-15.7); Immature Grans % 0.3; Lymphocytes % 8.8; MCH 29.4 pg (27.0-33.0); MCHC 31.9 % (32.0-36.0); MCV 92 fL (80-95); MPV 8.9 fL (8.0-11.0); Monocytes % 3.9; Neutrophils % 86.6; Platelet Count 366 10^3/uL (130-400); RBC 4.11 10^6/uL (3.93-5.22); RDW 13.1 % (11.7-14.6); RDW-SD 44.4 fL; WBC 10.26 10^3/uL (4.4-10.8)
[2022-06-21 09:07] LABS: Anion Gap 11.4 mmol/L (3-11); BUN 23 mg/dL (7-18); CO2 22.6 mmol/L (21.0-32.0); CREATININE 1.5 mg/dL (0.55-1.02); Chloride 104 mmol/L (98-107); Estimated GFR 35.01 (mL/min/1.73m2); Glucose 171 mg/dL (74-106); Magnesium 2.1 mg/dL (1.8-2.4); Potassium 4.5 mmol/L (3.5-5.1); Sodium 138 mmol/L (136-145); Troponin I < 50 ng/L (<or=60)
--- NOTE | 2022-06-21 09:55 | PT.INIE ---
Date of service: 06/21/22 Time of Service: 09:55 PT Notes Visit Reasons: Left Femural Neck Fracture Physical Therapy Inpatient Initial Evaluation Date: 06/21/2022 Referring Doctor: Bennett Aquino MD PT Orders: PT CONSULT: S/p Ortho surgery Precautions: Fall. Standard. WBAT on left LE with AD. Posterior hip precautions in place. 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 risk (BP not well controlled & declines statin in past) Medical History?(Updated 06/20/22 @ 08:42 by Michael Campos MD) Breast lump or mass (07/24/04) left breast lump--mammo and u/S at [facility]=neg breast clinic 04/2005 Right lumbar radiculopathy Tobacco use disorder quit 2004 Surgical History?(Updated 06/20/22 @ 09:07 by Michael Campos MD) H/O bilateral cataract extraction (~09/2016) Social History/Home Situation: Lives with in a single-story house with 3 steps to enter and rails on both sides. Independent with all aspects of ADLs prior to surgery. Equipment Owned/DME: [employer], S[facility] Subjective: Reports 0/10 in the left hip at rest and 7/10 with weight bearing. Denies headache, dizziness throughout session. Hopeful that she can go home as soon as it is safe to do so. Objective: General Observation: Seated on bedside recliner. IV access in right UEs. Postoperative swelling noted in the left leg. Mepilex Ag over surgical incision. Telemetry monitoring in place. Mental Status: Alert and oriented as to person, place, time, and purpose. Able to pay attention, focus, and respond appropriately. Pain: 0/10 at rest, 6-7/10 with weightbearing Vital Signs: Nuing staff closely monitoring blood pressure changes ROM: Right Lower Extremity: Hip flexion WFL. Hip abduction WFL. Knee flexion WFL. Ankle dorsiflexion WFL. Ankle plantarflexion WFL. Left Lower Extremity: Hip flexion WFL. Hip abduction WFL. Knee flexion WFL. Ankle dorsiflexion WFL. Ankle plantarflexion WFL. Strength: Right Lower Extremity: Hip flexors 5/5. Hip abductors 5/5. Knee flexors 5/5. Knee extensors 5/5. Ankle dorsiflexors 5/5. Ankle plantarflexors 5/5. Left Lower Extremity: Hip flexors 4-/5. Hip abductors 4-/5. Knee flexors 4-/5. Knee extensors 4-/5. Ankle dorsiflexors 4/5. Ankle plantarflexors 4/5. Bed Mobility/Transfers: Sit to stand with contact-guard assist Stand to sit with standby assist Bed to reclining chair standby assist Gait: 15 feet +200 feet using front wheeled walker with step to gait pattern with initial report of pain in the left hip at 6-7/10 that eventually subsided with ambulation activity. Reports decrease in stiffness around the left hip muscles. No shortness of breath. No loss of balance. Standby assist with wheelchair follow provided. Balance: Static Sitting: Normal Dynamic Sitting: Normal Static Standing: Fair Dynamic Standing: Fair Special Tests: Mobility Limitations Standardized Measure [facility] AM-PAC 6 clicks Basic Mobility Inpatient Short Form: Raw Score: 22 CMS Score: 21% deficit THERA EX: Gluteal sets 5sh x10 Quadricesp sets 5sh x 10 Ankle DF/PF x 10 Informed Consent/Education: Patient was instructed in purpose of PT consult and plan of care. Agreeable to proceed with established PT POC to achieve personal goals. Assessment: Teofilo requires the use of a front wheel walker for all mobility ADL performance to maximize independence and reduce fall risk. Patient presents with clinical signs and symptoms consistent with current/admitting diagnoses that have resulted to mobility limitations, gait instability, generalized weakness, and overall ADL decline as demonstrated by the following impairment level findings: 1. Decreased strength to left hip major muscle groups 2. Impaired sitting/standing balance 3. Impaired activity tolerance 4. Minimal swelling noted on L leg Impairments are contributing to the following functional limitations: 1. Decline in bed mobility skills 2. Decline in transfer skills 3. Difficulty with ambulation without assistive device and physical assistance 4. Increased completion time for mobility ADL performance 5. Increased risk for falls 6. Difficulty with managing steps alone safely Patient is assessed as a 17906 moderate complexity based on the following: History: 81-year-old female with past medical history as indicated above Examination: Demonstrable impairment in strength, balance, and mobility level with underlying impairments and functional limitations as exhibited above as well as deficit score of 21% utilizing the [facility] Mobility Inpatient Short Form Presentation: Evolving Decision Makin moderate complexity Goals: Goals X1 week 1. Supine-Sit independent 2. Sit-Supine independent 3. Sit-Stand independent 4. Stand-Sit independent with FWW 5. Bed-Chair independent with FWW 6. Chair-Bed independent with FWW 7. Independent gait on level surface with use of FWW for at least 300 feet without report of pain nor dyspnea 8. Independent stair negotiation while holding onto B rails for at least 3 steps without report of pain nor dyspnea 9. Independent with home exercise program 10. Good static and dynamic standing balance/tolerance Plan of Care/Treatment Plan: 1-2x/day, 7 days/week x 1 week. Plan of care has been reviewed with the LUMBER LOADER providing the service under Physical Therapy direction. Initiate Physical Therapy intervention for pain management as needed, strengthening, bed mobility, transfers, gait, stairs, balance training, and use of assistive device. DISCHARGE RECOMMENDATIONS: [] Home with no services [] [X] Home with services. Home when medically cleared by hospitalist staff/orthopedic surgeon. Patient will benefit from home health PT services in order to progress mobility level using least restrictive assistive ambulatory device, assess home safety, identify additional equipment needs, and establish a functional maintenance program that will increase ability of patient to remain at home. [] Home with outpatient PT [] [] SNF for continued rehabilitation [] [] Office System Analyst Care [] [] SNF versus LTC based on ability to participate and progress [] TREATMENT CODE/TIME: 82615 x 20 minutes, 48985 x 20 minutes beginning at 9:55 AM. Thank you for the opportunity to participate in the care of this patient. Seema Chapin PT, DPT, CLT [facility], [place]
--- NOTE | 2022-06-21 10:33 | PDOC.CMPRO ---
- If Service Date Differs Date of service: 06/21/22 Time of Service: 10:33 Care Management Progress Note S/O: Alma Rosa was sitting up in a chair when CM met with her. She was agreeable to conversation and engaged easily with CM. Alma Rosa shared that she is doing well today. She has ambulated with PT and stated that she had pain at the beginning but as she progressed, the pain improved. Alma Rosa anticipates being discharged home tomorrow. She reported that she does not feel she will need any services but may be open to them if recommended. A:Alma Rosa is an 81 year old woman admitted on 06/20/22 with a femoral neck fracture P:Anticipate Lisa (Alma Rosa) will discharge home with new [facility] PT (if indicated) when medically ready per Ortho. Alma Rosa will follow her discharge plan of care as prescribed and follow up with community providers and will transport with family. will offere support to Alma Rosa and her discharge needs.
--- NOTE | 2022-06-21 10:48 | W.ANESPOSTOP ---
Postoperative Evaluation Date, Time and Location Date Performed: 06/21/22 Time Performed: 10:25 Patient Location: Med/Surg Vital Signs Most Recent Imported Vital Signs: Most Recent Vital Signs Temp Pulse Resp BP Pulse Ox 36.4 C L 61 17 143/74 H 97 06/21/22 07:41 06/21/22 07:41 06/21/22 07:41 06/21/22 07:41 06/21/22 07:41 Pain Score Most Recent Pain Score: Most Recent Pain Score Pain Level [Left Sacrum] 3 06/20/22 20:12 Pain Level 2 06/21/22 04:45 Assessment Mental Status: Awake (Alert & Oriented to Patient Baseline) Airway and Respiratory Function: Patent airway with normal (patient baseline) respiratory exam Cardiovascular Function: Hemodynamically Stable Hydration Status: Adequately Hydrated Nausea & Vomiting: No Nausea or Vomiting Pain: Pt. Denies Any Pain Peripheral Nerve Block: Patient did not receive a nerve block Postoperative Comments:: All anesthesia effects worn off. Pt. speaking well with intact memory and word coordination.
--- NOTE | 2022-06-21 13:05 | DSE_ITS ---
Date of service: 06/22/22 Time of Service: 10:32 DS: Diagnosis Discharge Diagnosis (1) Femoral neck fracture: Status: Acute Discharge Plan Disposition Patient Disposition: HOME W/HOME HEALTH SERVICE Condition: Stable Discharge Details Reason For Visit: Left Femural Neck Fracture Admit Date/Time: 06/20/22 06:04 Admit Provider: Michael Campos Attending Provider: Michael Campos Primary Care Provider: Francine Bull Hospital Course Hospital Course: 81 yr old female patient w/ PMH of HTN presented to the [facility] emergency department after a mechanical fall and sustained left femoral neck fracture.? She stated that she was returning to the bedroom from the bathroom when she lost her balance and fell to the floor on her left side. She struck the vanity on the way down but did not sustain any head or neck injuries. She denied any symptoms of palpitations, or dyspnea or chest pain. The patient denied any syncope or presyncopal symptoms. Prior to her fall she states that she has had no exertional dyspnea or chest discomfort w/ her ADL's or w/ grocery shopping or her usual housework. She denied any cardiac hx such as CT, CVA, CHF, and denied any DM. She reports only having had cataract surgery. She is a former smoker who quit about 6 yrs ago, smoking < 1/2 ppd x 20-30 yrs. She drinks wine w/ meals about one small glass per evening. Dr. Aquino was consulted by the emergency department provider and she was admitted to the medical floor on the Hospitalist service. She underwent an uneventful left hip hemiarthroplasty on 06/20/2022. She had no adverse reaction to anesthesia.? She was evaluated by physical therapy for strengthening, bed mobility, transfers, gait, stairs, balance training, and use of assistive device.? She was on telemetry and did have a couple of about 6 second episodes of aberrant beats that weren?t identified as vtach but queried. She has had no chest pain, no dizziness, no palpitations, and no light headedness. She ambulated well with PT and was able to do stairs. She is being sent home on a 30 day cardiac event monitor.? She will have home health PT. Her vital signs are stable and her pain is minimal with Tylenol.? She is being discharged to home, she lives with her capable and motivated . Discussed with Dr Meza Home Meds and New Rx's Prescriptions: New tramadol 50 mg Tablet 50 mg PO Q12H PRN PRNQty: 20 0RF pantoprazole 40 mg Tablet,Delayed Release (Dr/Ec) 40 mg PO DAILY@0730 Qty: 30 0RF aspirin 81 mg capsule 81 mg PO BID Qty: 60 0RF Continued acetaminophen 500 mg tablet 500 mg PO TID PRN PRN lisinopril 20 mg tablet 20 mg PO DAILY Qty: 90 3RF triamcinolone acetonide 0.1 % cream 1 applic topical BID Qty: 30 2RF Rx Instructions: Apply thin layer to leg rash 2x per day for up to 2 weeks amlodipine 5 mg tablet 5 mg PO DAILY Qty: 90 3RF Discharge Instructions Instructions: Aspirin (By mouth), Hip Fracture (GEN) Additional Instructions: Take aspirin, for blood thinner, for 30 days. Stand Alone Forms: Nursing Discharge Form Referrals: Massiel Rae NP [NURSE PRACTITIONER] - 06/28/22 1:40 pm Bennett Aquino MD [ [facility] STAFF PHYSICIAN] - 07/10/22 11:30 am Activity:: Activity as Tolerated Equipment/Supplies:: Walker Diet:: As Tolerated Discharge Orders Discharge Orders: Discharge Order (Routine); Ordered 06/22/22 Ordered By: Leeann Doran Discharge Data Discharge Date/Time-TO BE ENTERED AT DEPARTURE: 06/22/22 12:10 DS: Summary Time Spent with Patient providing and/or coordinating discharge services: Less than 30 minutes Status at Discharge Functional status at discharge: uses cane/walker Overall status at discharge: patient is back to baseline Mental Status: mental status grossly normal Speech and Movement: speech and movement normal Mood: congruent mood Affect: normal affect Exam Psych Mental Status: mental status grossly normal Speech and Movement: speech and movement normal Mood: congruent mood Affect: normal affect DS: Data Vitals/I&O Vitals and I&O: Vital Signs Temperature 36.0 C L 06/21/22 11:22 Temperature Source Tympanic 06/21/22 11:22 Pulse 68 06/21/22 11:22 Pulse Rhythm Regular 06/21/22 10:22 Respiratory Rate 19 06/21/22 11:22 Respiratory Effort 06/21/22 10:22 Respiratory Depth Normal 06/21/22 10:22 Respiratory Pattern Normal 06/21/22 10:22 Blood Pressure 111/74 06/21/22 11:22 Blood Pressure Position Supine 06/20/22 04:27 Pulse Oximetry 98 06/21/22 11:22 Respiratory End-tidal CO2 25 06/20/22 18:45 Oxygen Delivery Method Room Air 06/21/22 11:22 Oxygen Flow Rate 0 06/21/22 11:22 Pain Level 0 06/21/22 11:22 Comment 06/21/22 07:41 Intake & Output 06/20/22 06/21/22 06/21/22 23:59 11:59 23:59 Intake Total 980 / 1080 850 / 900 50 / 900 Output Total 525 / 525 Balance 980 / 480 325 / 375 50 / 375 Weight 79.2 kg Intake: IV 980 / 1080 250 / 300 50 / 300 Oral 600 / 600 Output: Urine 525 / 525 Other: Urine Color Yellow Urine Appearance Clear Clear Comment reported from previous shift nurse Emesis Description None Data Completed and Pending Labs on day of discharge: Labs from last 24 hours 06/21/22 06/21/22 08:40 08:40 WBC 10.26 RBC 4.11 Hgb 12.1 Hct 37.9 MCV 92 MCH 29.4 MCHC 31.9 L RDW 13.1 Plt Count 366 MPV 8.9 Immature Gran % 0.3 Neutrophils % 86.6 Lymphocytes % 8.8 Monocytes % 3.9 Eosinophils % 0.1 Basophils % 0.3 Nucleated RBC % 0.0 Absolute Neutrophils 8.89 H Absolute Lymphocytes 0.90 L Absolute Monocytes 0.40 Absolute Eosinophils 0.01 Absolute Basophils 0.03 Sodium 138 Potassium 4.5 Chloride 104 Carbon Dioxide 22.6 Anion Gap 11.4 H BUN 23 H Creatinine 1.5 H Est GFR (CKD-EPI 2020) 35.01 Glucose 171 H Calcium 9.0 Magnesium 2.1 Troponin I < 50 PFSH All Active Problems (Updated 06/22/22 @ 08:50 by Leeann Doran NP) 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 risk (BP not well controlled & declines statin in past) Medical History (Updated 06/22/22 @ 08:50 by Leeann Doran NP) Breast lump or mass (07/24/04) left breast lump[place]o [place] [facility] [place]2005 Right lumbar radiculopathy Tobacco use disorder quit 2004 Surgical History (Updated 06/20/22 @ 09:07 by Michael Campos MD) H/O bilateral cataract extraction (~09/2016) Family History Mother , AGE 72 Osteoporosis Father , AGE 72 Diabetes Essential hypertension Heart disease Myocardial infarction Stroke Asthma Sister Heart disease Sister Essential hypertension Sister Essential hypertension Sister Essential hypertension Sister Essential hypertension Brother Essential hypertension Brother Essential hypertension Son No problems noted. Son Hyperlipidemia Son Asthma Daughter No problems noted. Brother No problems noted. 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 Pets and animals: Yes Pets and animals: cat(s) and dog(s) Sexually active: No Do you think of yourself as: straight/heterosexual Current gender identity: female What is your relationship status?: How often do you talk on the phone with friends or family?: once per week How often do you get together with friends or relatives?: decline to answer How often do you attend quaker or catholic services?: decline to answer Do you belong to any clubs or organized social groups?: no Panel score (0-1 are the most socially isolated patients): 1 What type of physical activity do you participate in: walking Duration: < 15 minutes/day Frequency: 3-4 times per week Anna/Jehovah'S Witness: Mosque Special anna needs: No Seatbelt use: always Helmet use: Yes Helmet use: always Do you feel safe at home: Yes Do you feel safe in your relationship?: Yes
--- NOTE | 2022-06-21 15:20 | PGE_ITS ---
Date of Service Date of service: 06/21/22 Time of Service: 15:20 Assessment and Plan Assessment and plan (1) Femoral neck fracture: Status: Acute Assessment and plan: Post op day one femoral neck repair L Dressing dry and intact (2) HTN (hypertension): Status: Chronic Assessment and plan: Resume Lisinopril Qualifiers: Hypertension type: primary hypertension Qualified Code(s): I10 - Essential (primary) hypertension (3) Hyperlipidemia: Status: Chronic Assessment and plan: not being treated currently, formerly treated w/ lipitor and prior to that simvastatin. Qualifiers: Hyperlipidemia type: mixed hyperlipidemia Qualified Code(s): E78.2 - Mixed hyperlipidemia Subjective Subjective Patient reports: no new complaints, pain is less, tolerating a regular diet, voiding w/o difficulty and afebrile; denies diarrhea, nausea, vomiting or jennifer rtness of breath Interval history since last seen: Lisa is progressing nicely. PT has released her to go home. In discussion with her she will stay overnight and if doing well tomorrow 06/22 we will discharge her. Exam Narrative Exam Narrative: Ronaldo is sitting in the chair, awake, alert and oriented person place time circumstance. HEENT upper and lower denture Neck is supple no JVD normal carotid pulses no bruits nontender with normal range of motion Lungs are clear to auscultation Heart is regular without appreciable murmur rub or gallop or thrill Abdomen soft nontender no organomegaly no bruits no masses Lower extremities left leg, some swelling, dressing dry and intact. Venous varicosities in both legs, palpable pedal pulses and neurovascular status is intact with normal sensation to light touch. Neuro exam grossly intact no focal cranial nerve deficits no focal motor or sensory deficits Objective Last Vital Signs Temp 36.0 C L 06/21/22 11:22 Pulse 68 06/21/22 11:22 Resp 19 06/21/22 11:22 BP 111/74 06/21/22 11:22 Pulse Ox 98 06/21/22 11:22 Laboratory Results - last 24 hr 06/21/22 06/21/22 08:40 08:40 WBC 10.26 RBC 4.11 Hgb 12.1 Hct 37.9 MCV 92 MCH 29.4 MCHC 31.9 L RDW 13.1 Plt Count 366 MPV 8.9 Immature Gran % 0.3 Neutrophils % 86.6 Lymphocytes % 8.8 Monocytes % 3.9 Eosinophils % 0.1 Basophils % 0.3 Nucleated RBC % 0.0 Absolute Neutrophils 8.89 H Absolute Lymphocytes 0.90 L Absolute Monocytes 0.40 Absolute Eosinophils 0.01 Absolute Basophils 0.03 Sodium 138 Potassium 4.5 Chloride 104 Carbon Dioxide 22.6 Anion Gap 11.4 H BUN 23 H Creatinine 1.5 H Est GFR (CKD-EPI 2020) 35.01 Glucose 171 H Calcium 9.0 Magnesium 2.1 Troponin I < 50
--- NOTE | 2022-06-21 15:56 | PT.INTREAT ---
Date of service: 06/21/22 Time of Service: 14:00 PT Notes Visit Reasons: Left Femural Neck Fracture Inpatient Physical Therapy Treatment Note [facility] Date: 06/21/2022 PRECAUTIONS: Fall, activity as tolerated SUBJECTIVE: Alma Rosa is pleasant and agreeable to participate in PT. She reports that she feels she is doing well and would like to discharge to home today. OBJECTIVE: PAIN: Patient reports increased pain in L hip with ther ex, gait training, and transfers BED MOBILITY/TRANSFERS Supine-sit: S with cueing for technique (from left and right sides of bed x1 each) Sit-supine: S with cueing for technique (from left and right sides of bed x1 each) Sit-stand: S Stand-sit: S GAIT Assistive Device: FWW Weight bearing: WBAT L Assist: SBA Distance: 150' x2 Deviation: Slightly antalgic gait, step-through pattern STAIRS: Up/down 3x4 and 2x6 using B rails and a step-to pattern with supervision and instruction for sequence. THEREX: Patient was instructed in a LE strengthening program, completed in a seated position, to include: ankle pumps, heel raises, LAQ, hip flexion and hip abduction. ASSESSMENT: Patient tolerated session well, tolerating the addition of stair training, with which she requires supervision only. She demonstrates ability to complete transfers and bed mobility with supervision only. PLAN: Patient to discharge to home later today, per provider. Recommend follow up with PT upon discharge. TREATMENT CODE/TIME: 30 minutes; 77567 x2 (14:00)
[2022-06-21] MEDS: Acetaminophen 500 MG TAB 1000 MG PO ×2 (16:51→23:47)
[2022-06-21] MEDS: Normal Saline Flush 10 ML SYR IVP (16:52)
[2022-06-22] VITALS: PULSE 58
[2022-06-22 03:20] VITALS: BP 163/90; PULSE 65; RESP 65; TEMP 36.7; O2SAT 97
[2022-06-22 06:58] LABS: Abs Immature Grans 0.02 10^3/uL (0.0-0.06); Absolute Basophil Count 0.03 10^3/uL (0.0-0.2); Absolute Eosinophil Count 0.18 10^3/uL (0.0-0.7); Absolute Lymphocyte Count 1.96 10^3/uL (1.2-3.4); Absolute Monocyte Count 0.49 10^3/uL (0.1-0.8); Absolute Neutrophil Count 4.18 10^3/uL (1.2-6.7); Basophils % 0.4; Eosinophils % 2.6; HCT 33.1 % (36.0-46.0); HGB 10.3 g/dL (11.2-15.7); Immature Grans % 0.3; Lymphocytes % 28.6; MCH 28.7 pg (27.0-33.0); MCHC 31.1 % (32.0-36.0); MCV 92 fL (80-95); MPV 9.1 fL (8.0-11.0); Monocytes % 7.1; Platelet Count 359 10^3/uL (130-400); RBC 3.59 10^6/uL (3.93-5.22); RDW 13.2 % (11.7-14.6); RDW-SD 44.8 fL; WBC 6.86 10^3/uL (4.4-10.8)
[2022-06-22 07:33] LABS: Anion Gap 8.2 mmol/L (3-11); BUN 24 mg/dL (7-18); CO2 25.8 mmol/L (21.0-32.0); CREATININE 1.3 mg/dL (0.55-1.02); Calcium 8.9 mg/dL (8.5-10.1); Chloride 107 mmol/L (98-107); Estimated GFR 41.57 (mL/min/1.73m2); Glucose 97 mg/dL (74-106); Magnesium 2.2 mg/dL (1.8-2.4); Sodium 141 mmol/L (136-145)
[2022-06-22 07:42] VITALS: BP 157/92; PULSE 59; RESP 14; TEMP 36.7; O2SAT 93
[2022-06-22] MEDS: Heparin 5,000 UNITS/ML VIAL 5000 UNITS SC (07:44)
[2022-06-22] MEDS: amLODIPine 5 MG TAB PO (07:45)
[2022-06-22] MEDS: Acetaminophen 500 MG TAB 1000 MG PO (07:45)
[2022-06-22] MEDS: Pantoprazole 40 MG TABCR PO (07:45)
[2022-06-22] MEDS: Lisinopril 20 MG TAB PO (10:24)
--- NOTE | 2022-06-22 10:34 | PDOC.HHF2F ---
Home Health Certification Home Health Certification: 1. Encounter Date and Reason I certify that Lisa Mariano was seen by Leeann Doran NP on 06/22/22 and that I had a [id number] encounter with this patient that meets the physician face to face encounter requirements. 2. Clinical Findings Supporting Skilled Need and Homebound Status I certify that home health services are medically necessary, include either intermittent retirement and/or physical/speech therapy, and that this patient is homebound in that absences from the home require considerable and taxing effort and are infrequent or of short duration, or are attributable to the need to receive medical care. [X] (a) Attached documentation from encounter provides clinical findings supporting skilled need and homebound status (including what assistance patient requires to leave the home). The encounter with the patient was in whole, or in part, for the following medical condition, which is the primary reason for home health care: Left Femural Neck Fracture Physical Therapy: Restore the patient's ability to ambulate independently and safely Homebound: Patient is unable to leave her home without assistance and ambulation is severely limited due to decreased strength and endurance post left femoral neck repair 3. Certification and Authentication I certify that I composed the above information based on my clinical judgement relating to this patient's medical condition and, if applicable, clinical findings communicated to me by the NPP or inpatient physician who performed the Home Health Referral. All further orders will be obtained through Arvin Diana MD
--- NOTE | 2022-06-22 11:15 | PT.INTREAT ---
PT Notes Visit Reasons: Left Femural Neck Fracture Date: 06/22/2022 PRECAUTIONS: Fall, activity as tolerated SUBJECTIVE: Pt reports that she is feeling much better despite 6/10 for pain for left lower extremity, pt looking forward to going home today. pt agreed to participating with therapy. OBJECTIVE: ? PAIN: Patient reports 6/10 for pain on left lower extremity ? TRANSFERS: ? Sit-stand: S ? Stand-sit: S? GAIT? Assistive Device: FWW? Weight bearing: WBAT L Assist: SBA? Distance:? 150' x3 ? Deviation: Slightly antalgic gait, step-through pattern STAIRS: Up/down 3x4 and 2x6 using B rails and a step-to pattern with supervision and instruction for sequence. THEREX: Patient was instructed in a LE strengthening program, completed in a seated position, to include: ankle pumps, heel raises, LAQ, hip flexion and hip abduction. ? ASSESSMENT:? Pt tolerated activity well with pt pain staying at 6/10 post session. pt requested to stay in recliner after activity. PLAN: Patient still waiting for discharge to home.? Recommend follow up with PT upon discharge. TREATMENT CODE/TIME: 30 minutes; 42229 x2 (09:40)
--- NOTE | 2022-06-24 09:05 | PT.INDS ---
Date of service: 06/24/22 Time of Service: 09:05 PT Notes Visit Reasons: Left Femural Neck Fracture Physical Therapy Inpatient Initial Evaluation Date: 06/21/2022 Dates of service: 06/21/2022 through 06/22/2022 This is a clinical summary of care provided for the duration of dates listed above. No charge was made in the completion of this documentation. Referring Doctor: Bennett Aquino MD PT Orders: PT CONSULT: S/p Ortho surgery Precautions: Fall. Standard.? WBAT on left LE with AD.? Posterior hip precautions in place. Patient Profile/Admitting Diagnosis:? 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 risk (BP not well controlled & declines statin in past) Medical History?(Updated 06/20/22 @ 08:42 by Michael Campos MD) Breast lump or mass (07/24/04) left breast lump--mammo and u/S at [facility] [place] 04/2005 Right lumbar radiculopathy Tobacco use disorder quit 2004 Surgical History?(Updated 06/20/22 @ 09:07 by Michael Campos MD) H/O bilateral cataract extraction (~09/2016) Social History/Home Situation: Lives with in a single-story house with 3 steps to enter and rails on both sides.? Independent with all aspects of ADLs prior to surgery.? Equipment Owned/DME: [facility], [facility] Subjective: NT. See most recent MAINTENANCE REPAIRMAN notes. Objective: General Observation: NT. See most recent MAINTENANCE REPAIRMAN notes. Mental Status: NT. See most recent MAINTENANCE REPAIRMAN notes. Pain: NT. See most recent MAINTENANCE REPAIRMAN notes. Vital Signs: NT. See most recent MAINTENANCE REPAIRMAN notes. ROM: Right Lower Extremity: Hip flexion WFL. Hip abduction WFL. Knee flexion WFL. Ankle dorsiflexion WFL. Ankle plantarflexion WFL. Left Lower Extremity: Hip flexion WFL. Hip abduction WFL. Knee flexion WFL. Ankle dorsiflexion WFL. Ankle plantarflexion WFL. Strength: Right Lower Extremity: Hip flexors 5/5. Hip abductors 5/5. Knee flexors 5/5. Knee extensors 5/5. Ankle dorsiflexors 5/5. Ankle plantarflexors 5/5. Left Lower Extremity: Hip flexors 4-/5. Hip abductors 4-/5. Knee flexors 4-/5. Knee extensors 4-/5. Ankle dorsiflexors 4/5. Ankle plantarflexors 4/5. TRANSFERS: ? Sit-stand: S ? Stand-sit: S? GAIT? Assistive Device: FWW? Weight bearing: WBAT L Assist: SBA? Distance:? 150' x3 ? Deviation: Slightly antalgic gait, step-through pattern Balance: Static Sitting: Normal Dynamic Sitting: Normal Static Standing: Fair Dynamic Standing: Fair Assessment: Teofilo requires the use of a front wheel walker for all mobility ADL performance to maximize independence and reduce fall risk.? Patient presents with clinical signs and symptoms consistent with current/admitting diagnoses that have resulted to mobility limitations, gait instability, generalized weakness, and overall ADL decline as demonstrated by the following impairment level findings: 1.? Decreased strength to left hip? major muscle groups 2.? Impaired sitting/standing balance 3.? Impaired activity tolerance 4. Minimal swelling noted on L leg Impairments are contributing to the following functional limitations: 1.? Decline in bed mobility skills 2.? Decline in transfer skills 3.? Difficulty with ambulation without assistive device and physical assistance 4.? Increased completion time for mobility ADL performance 5.? Increased risk for falls 6.? Difficulty with managing steps alone safely Goals: Goals X1 week 1. Supine-Sit independent NOT MET 2. Sit-Supine independent NOT MET 3. Sit-Stand independent NOT MET 4. Stand-Sit independent with FWW NOT MET 5. Bed-Chair independent with FWW NOT MET 6. Chair-Bed independent with FWW NOT MET 7. Independent gait on level surface with use of FWW for at least 300 feet without report of pain nor dyspnea NOT MET 8. Independent stair negotiation while holding onto B rails for at least 3 steps without report of pain nor dyspnea NOT MET 9. Independent with home exercise program NOT MET 10. Good static and dynamic standing balance/tolerance NOT MET DISCHARGE RECOMMENDATIONS: [] ? Home with no services [] [X] ? Home with services.? Home when medically cleared by hospitalist staff/orthopedic surgeon.? Patient will benefit from home health PT services in order to progress mobility level using least restrictive assistive ambulatory device, assess home safety, identify additional equipment needs, and establish a functional maintenance program that will increase ability of patient to remain at home. [] ? Home with outpatient PT [] [] ? SNF for continued rehabilitation [] [] ? Schedule Checker Care [] [] ? SNF versus LTC based on ability to participate and progress [] TREATMENT CODE/TIME: NC Thank you for the opportunity to participate in the care of this patient. Seema Chapin PT, DPT, CLT [facility] [place], [place]
== END 2022-06-22 12:10 | disposition home health service (06) | DRG 522 ==
LOC: ER 06:24 → MS 06:44
PROVIDERS: Internal Medicine; Student in an Organized Health Care Education/Training Program; Admitting Provider Internal Medicine; Emergency Provider Emergency Medicine; Visit Provider Internal Medicine
PROC: 0SRS0JA Replacement of Left Hip Joint, Femoral Surface with Synthetic Substitute, Uncemented, Open Approach (ICD-10-PCS; CPT 27125; principal; 2022-06-20 14:30)
DX: S72.002A Fracture of unspecified part of neck of left femur, initial encounter for closed fracture (principal); I45.2 Bifascicular block; I10 Essential (primary) hypertension; E78.2 Mixed hyperlipidemia; W18.39XA Other fall on same level, initial encounter; Z87.891 Personal history of nicotine dependence; E66.9 Obesity, unspecified; Z68.31 Body mass index [BMI] 31.0-31.9, adult
CPT/HCPCS: 27236; 36415; 51702; 73552; 80048; 80053; 82550; 87635; 96374; 96375; 96376; 97162; 97530; 99223; 99285; 72170; 73502; 83735; 84484; 85025; 93005; 93010; 94667; 99222; 99238; J0131; J0690; J1100; J1644; J1885; J2270; J2370; J2405; J2704

== ENCOUNTER 2022-06-21 16:01 | Outpatient (CLI) | payer MEDICARE, SELFPAY ==
--- NOTE | 2022-07-25 14:51 | W.CARDEVENT ---
Date of service: 07/25/22 Time of Service: 14:52 Cardiac Event Recorder Referring Provider:: Michael Campos Indications:: Ventricular tachycardia Cardiac Event Note: This is a 30-day event monitor that was ordered for ventricular tachycardia. The recording actually only lasted 1 day Rhythm throughout was sinus with an average heart rate of 65. There was no significant bradycardia or tachycardia No significant atrial or ventricular dysrhythmias were recorded No patient symptoms were reportedly present
== END 2022-06-21 16:02 | disposition home or self-care (01) ==
LOC: RT 16:03
PROVIDERS: Visit Provider Internal Medicine
DX: I47.20 Ventricular tachycardia, unspecified (principal)
CPT/HCPCS: 93272

== ENCOUNTER 2022-07-10 11:29 | Outpatient (CLI) | payer MEDICARE, SELFPAY ==
--- NOTE | 2022-07-10 11:36 | DI.RAD_ITS ---
Exam(s) XR HIP LT AP LAT ONLY EXAM: XR HIP LT AP LAT ONLY INDICATION: s/p left hip hemiarthroplasty. COMPARISON: CR XR HIP LT COMPLETE AP PELVIS from 06/20/2022 TECHNIQUE: 2D digital imaging was performed. Two views. FINDINGS: There has been no change in the alignment of the left hip prosthesis. There are no abnormal surround ing bony lucencies. The right hip joint space is well maintained. DATA REPOSITORY: RADIATION DOSE DELIVERED:
== END 2022-07-10 11:30 | disposition home or self-care (01) ==
LOC: DIORS 11:34
PROVIDERS: PCP Nurse Practitioner Family; Referring Provider Nurse Practitioner Family; Visit Provider Physician Assistant
DX: Z96.642 Presence of left artificial hip joint (principal); Z47.1 Aftercare following joint replacement surgery
CPT/HCPCS: 73502

== ENCOUNTER → 2022-09-04 10:44 | Outpatient (BNVA) | payer MEDICARE, SELFPAY | PROVIDERS: PCP Nurse Practitioner Family; Referring Provider Nurse Practitioner Family; Visit Provider Student in an Organized Health Care Education/Training Program | DX: Z47.1 Aftercare following joint replacement surgery (principal); Z96.642 Presence of left artificial hip joint ==

== ENCOUNTER 2023-07-20 21:19 | Emergency (ER) | payer MEDICARE, SELFPAY ==
[2023-07-20] VITALS (45 sets, daily range): BP systolic 144–244; BP diastolic 50–141; PULSE 52–159; RESP 14–29; TEMP 36.8; O2SAT 97
--- NOTE | 2023-07-20 21:15 | RT.EKG_ITS ---
APPROVED REPORT Exam: Resting ECG Reason for Exam: weakness Patient Location: E HR:110 bpm ECG Measurements Heart Rate 110 AXIS MI 174 P 40 QRSd 106 QRS -62 QT 357 T 120 QTc 456 Conclusion Sinus tachycardia...rate> 99 Probable left atrial enlargement...P >50mS, <-0.10mV V1 LVH with secondary repolarization abnormality...multi-LVH criteria, abnrm ST-T Inferior infarct, old...Q >35mS, II III aVF Anterior infarct, old...Q >40mS, abnormal ST-T, V2-V5 sinus tachycardua, left axis, PACs, lateral st segment depressions
--- NOTE | 2023-07-20 21:15 | RT.EKG_ITS ---
APPROVED REPORT Exam: Resting ECG Reason for Exam: stroke alert Patient Location: E HR:94 bpm ECG Measurements Heart Rate 94 AXIS VT 220 P 33 QRSd 111 QRS -56 QT 390 T 42 QTc 487 Conclusion Sinus rhythm...normal P axis, V-rate 60- 99 Supraventricular bigeminy...bigeminy string>4 w/ SV complexes Prolonged VT interval...VT >215, V-rate 91-120 Probable left atrial enlargement...P >50mS, <-0.10mV V1 Inferior infarct, old...Q >35mS, II III aVF Anterior infarct, old...Q >40mS, abnormal ST-T, V2-V5 sinus rythm, left axis, PACs, non ischemic
--- NOTE | 2023-07-20 21:15 | DI.RAD_ITS ---
Exam(s) XR PELVIS AP EXAM: XR PELVIS AP CLINICAL HISTORY: weakness, fall. TECHNIQUE: 2D digital imaging was performed. COMPARISON: CR XR HIP LT AP LAT ONLY from 07/10/2022 FINDINGS: Single view: No evidence of pelvic nor hip fracture. Left hip prosthesis again noted. Right hip appears unremark able. There is contrast seen in the urinary bladder. IMPRESSION: No acute findings. DATA REPOSITORY: RADIATION DOSE DELIVERED:
--- NOTE | 2023-07-20 21:15 | DI.CT_ITS ---
Exam(s) CT BRAIN NECK CTA EXAM: CT BRAIN NECK CTA CLINICAL HISTORY: acute onset left facial and left sided weakness. TECHNIQUE: Imaging Protocol: Axial CT angiography was performed with multi-slice acquisition and mu lti-planar and/or 3D reconstructions. CONTRAST MATERIAL: Intravenous: Omnipaque 350 contrast volume:85 mL COMPARISON: No exams were available for comparison FINDINGS: CT Head W/O and W: Ventricles and Extra axial spaces: Normal in size and morphology for the patient's age. Hemorrhage: None. 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 There are areas of decreased attenuation in the white matter most consistent with small vessel ischemic disease. No acute territ orial infarct is present. Midline shift: None. Brainstem/Cerebellum: Normal. Calvarium: Normal. Visualized Paranasal sinuses/Mastoids: Clear. Soft Tissues: Unremarkable. Enhancement: Unremarkable. CTA Neck W: Common Carotid: Right: No dissection, occlusion or significant stenosis. Atherosclerosis at the origin. Left: No evidence of occlusion there is a linear hypodense area in the proximal left common carotid artery (series 12, image 111) suspicious for dissection. There is narrowing of the lumen by approxim ately 50 percent. External Carotid: Right: No occlusion or significant stenosis. Left: No occlusion or significant stenosis. Internal Carotid: Right: No dissection, occlusion or significant stenosis. There is atherosclerosis proximally without significant stenosis. Left: There is atherosclerosis at the origin. There is marked stenosis of the proximal left interna l carotid artery with a narrowing of approximately greater than 80 percent. Vertebral Artery: Right: No dissection, occlusion or significant stenosis. There is atherosclerosis at the origin. Left: No dissection, occlusion or significant stenosis. There is atherosclerosis at the origin. Lung Apices: Normal. Bones: Within normal limits for the patient's age. Soft Tissues: Normal. Thyroid gland: There are few small less than 1 cm nodules in the thyroid gland. No follow-up is britt mmended. CTA Brain W: Internal Carotid Arteries: There is atherosclerosis bilaterally without evidence of aneurysm occlusio n or significant stenosis. Anterior Cerebral Arteries: Right: No aneurysm, occlusion or significant stenosis. Left: No aneurysm, occlusion or significant stenosis. There is a hypoplastic A1 segment which is a n ormal variant. Middle Cerebral Arteries: Right: No aneurysm, occlusion or significant stenosis. Left: No aneurysm, occlusion or significant stenosis. Posterior Cerebral Arteries: Right: No aneurysm, occlusion or significant stenosis. Left: No aneurysm, occlusion or significant stenosis. Vertebral Arteries: Right: No aneurysm, occlusion or significant stenosis. Left: No aneurysm, occlusion or significant stenosis. Basilar Artery: No aneurysm, occlusion or significant stenosis. IMPRESSION: 1. No large vessel occlusion or significant stenosis on the CT angiography of the head. 2. No acute intracranial process. 3. Severe stenosis of the proximal left common carotid artery. (Severe stenosis is 70-99 percent nabor nosis). 4. Linear hypodense area in the proximal left common carotid artery suspicious for dissection. There is 50 percent narrowing of the lumen at this level. 5. Findings were discussed with [place] at 9:30 a.m. on 07/21/2023. RADIATION DOSE DELIVERED: Total DLP DATA REPOSITORY: All CT scans at this facility are submitted to the National Radiology Data Registry (NRDR) Dose Index Registry (DIR) with the [employer] (ACR). RADIATION OPTIMIZATION: All CT scans at this facility use at least one of these dose optimization te chniques: automated exposure control; mA and/or kV adjustment per patient size (includes targeted exa ms where dose is matched to clinical indication); or iterative reconstruction.
--- NOTE | 2023-07-20 21:15 | DI.RAD_ITS ---
Exam(s) XR CHEST 2V PA LATERAL EXAM: XR CHEST 2V PA LATERAL CLINICAL HISTORY: left sided weakness. TECHNIQUE: 2D digital imaging was performed. COMPARISON: No exams were available for comparison FINDINGS: 2 views: Heart size is upper normal. The mediastinum is not widened. Lungs are clear. No infiltrates nor pleural effusions. IMPRESSION: No acute pulmonary findings. DATA REPOSITORY: RADIATION DOSE DELIVERED:
[2023-07-20] MEDS: Omnipaque 350 MG/ML 100 ML BTL IJ (21:38)
[2023-07-20 21:51] LABS: Abs Immature Grans 0.03 10^3/uL (0.0-0.06); Absolute Basophil Count 0.04 10^3/uL (0.0-0.2); Absolute Eosinophil Count 0.12 10^3/uL (0.0-0.7); Absolute Lymphocyte Count 0.98 10^3/uL (1.2-3.4); Absolute Monocyte Count 0.51 10^3/uL (0.1-0.8); Absolute Neutrophil Count 5.35 10^3/uL (1.2-6.7); Basophils % 0.6; Eosinophils % 1.7; HCT 41.7 % (36.0-46.0); HGB 13.4 g/dL (11.2-15.7); Immature Grans % 0.4; Lymphocytes % 13.9; MCH 29.2 pg (27.0-33.0); MCHC 32.1 % (32.0-36.0); MCV 91 fL (80-95); MPV 9.2 fL (8.0-11.0); Monocytes % 7.3; Neutrophils % 76.1; Platelet Count 374 10^3/uL (130-400); RBC 4.59 10^6/uL (3.93-5.22); RDW 13.4 % (11.7-14.6); RDW-SD 44.8 fL; WBC 7.03 10^3/uL (4.4-10.8)
--- NOTE | 2023-07-20 21:52 | DI.VRAD_ITS ---
PROCEDURE INFORMATION: Exam: CTA Head With Contrast, Arteriography Exam date and time: 07/20/2023 9:23 PM Age: 82 years old Clinical indication: Stroke-like symptoms; Other: Facial and side weakness lt; Lt upper extremity weakness TECHNIQUE: Imaging protocol: Computed tomographic angiography of the head with contrast. Exam focused on the arteries. 3D rendering (Not supervised by radiologist): MIP and/or 3D reconstructed images were created by the technologist. Contrast material: 350; Contrast volume: 85 ml; Contrast route: INTRAVENOUS (IV); COMPARISON: No relevant prior studies available. FINDINGS: ANTERIOR CIRCULATION: Right internal carotid artery: Intracranial segment is patent with no significant stenosis. No aneurysm. Right middle cerebral artery: No occlusion or significant stenosis. No aneurysm. Right anterior cerebral artery: No occlusion or significant stenosis. No aneurysm. Left internal carotid artery: Intracranial segment is patent with no significant stenosis. No aneurysm. Left middle cerebral artery: No occlusion or significant stenosis. No aneurysm. Left anterior cerebral artery: Hypoplastic A1 segment, a normal variation No occlusion or significant stenosis. No aneurysm. POSTERIOR CIRCULATION: Right vertebral artery: No occlusion or significant stenosis. No aneurysm. Left vertebral artery: No occlusion or significant stenosis. No aneurysm. Basilar artery: No occlusion or significant stenosis. No aneurysm. Right posterior cerebral artery: No occlusion or significant stenosis. No aneurysm. Left posterior cerebral artery: No occlusion or significant stenosis. No aneurysm. Brain: No definite mass, mass effect, or midline shift. Cerebral ventricles: No ventriculomegaly. Bones/joints: Unremarkable. No acute fracture. Soft tissues: Unremarkable. IMPRESSION: No large vessel stenosis or occlusion. PROCEDURE INFORMATION: Exam: CTA Neck With Contrast Exam date and time: 07/20/2023 9:23 PM Age: 82 years old Clinical indication: Stroke-like symptoms; Other: Facial and side weakness lt; Lt upper extremity weakness TECHNIQUE: Imaging protocol: Computed tomographic angiography of the neck with contrast. Exam focused on the cervical segments of the vasculature. 3D rendering (Not supervised by radiologist): MIP and/or 3D reconstructed images were created by the technologist. Contrast material: 350; Contrast volume: 85 ml; Contrast route: INTRAVENOUS (IV); COMPARISON: No relevant prior studies available. FINDINGS: Right common carotid artery: No stenosis. No dissection or occlusion. Right internal carotid artery: No stenosis of the extracranial segment. No dissection or occlusion. Right external carotid artery: No occlusion or stenosis of the origin. Left common carotid artery: Moderate stenosis. No dissection or occlusion. Left internal carotid artery: Severe stenosis at the bulb. No dissection or occlusion. Left external carotid artery: No occlusion or stenosis of the origin. Right vertebral artery: No stenosis. No dissection or occlusion. Left vertebral artery: No stenosis. No dissection or occlusion. Soft tissues: No significant soft tissue swelling. Bones/joints: No acute fracture. IMPRESSION: Severe stenosis in the left carotid bulb Moderate stenosis in the left common carotid artery REFERENCES: NASCET CRITERIA. The degree of stenosis in the cervical segment of the internal carotid artery is based on NASCET criteria. Normal is no stenosis. Mild is less than 50% stenosis. Moderate is 50-69% stenosis. Severe is 70% to 99% stenosis. Total occlusion is no detectable patent lumen. Dictated and Authenticated by: Nito Farmer MD. Ordering:SARAH Souza MD
--- NOTE | 2023-07-20 21:52 | DI.VRAD_ITS ---
PROCEDURE INFORMATION: Exam: XR Chest Exam date and time: 07/20/2023 9:41 PM Age: 82 years old Clinical indication: Other: Left side weakness TECHNIQUE: Imaging protocol: Radiologic exam of the chest. Views: 2 views. COMPARISON: CT BRAIN NECK CTA 07/20/2023 9:23 PM FINDINGS: Lungs: Unremarkable. No consolidation. Pleural spaces: Unremarkable. No pleural effusion. No pneumothorax. Heart/Mediastinum: Tortuous aorta and moderate cardiomegaly. Bones/joints: Unremarkable. IMPRESSION: No acute findings. Dictated and Authenticated by: Nito Farmer MD. Ordering:SARAH Souza MD
--- NOTE | 2023-07-20 21:53 | DI.VRAD_ITS ---
PROCEDURE INFORMATION: Exam: XR Pelvis Exam date and time: 07/20/2023 9:46 PM Age: 82 years old Clinical indication: Other: Weakness, fall TECHNIQUE: Imaging protocol: Radiologic exam of the pelvis. Views: 1 or 2 view. COMPARISON: CR XR HIP LT COMPLETE AP PELVIS 06/20/2022 6:09 PM FINDINGS: Bones/joints: Left unipolar hip arthroplasty is grossly intact. No acute fracture. Soft tissues: Unremarkable. Moderate dense stool in the rectal vault Dense contrast in the bladder IMPRESSION: No acute findings. Dictated and Authenticated by: Nito Farmer MD. Ordering:SARAH Souza MD
[2023-07-20 22:05] LABS: Prothrombin Time 10.4 sec (9.1-11.1)
--- NOTE | 2023-07-20 22:13 | ED.GENADUL_ITS ---
Discharge Plan Disposition Patient Disposition: Transfer-Acute Inpatient Care Specific Acute Inpt Facility: [facility] Condition: Stable Discharge Details Clinical Impression: Hemiparesis, Hypertension Primary Care Provider: Hill Siddiqui ED Provider: Harley Motta Home Meds and New Rx's Prescriptions: No Action ibuprofen 200 mg capsule 200 mg PO Q6H PRN lisinopril 20 mg tablet 20 mg PO DAILY Qty: 90 3RF amlodipine 5 mg tablet 5 mg PO DAILY Qty: 90 3RF Medical Decision Making 82-year-old female history of hypertension presents with acute onset left facial droop left-sided weakness that began at approximately 8 PM this evening witnessed by , no blood thinner use no recent trauma no recent surgery, no history of strokes, blood sugar normal in the field, patient with an NIH stroke score of approximately 8 on arrival, mild dysarthria, 3+ out of 5 strength left upper extremity, 4 out of 5 strength left lower extremity, noted to be severely hypertensive arrival as high as 200 systolic over 110s diastolic, CT CTA head neck negative for large vessel occlusion, patient does have carotid stenosis; clinical evaluation concerning for ischemic stroke versus hypertensive emergency, patient started on nicardipine with goal BP less than 185 over less than 110, discussed tPA with patient and family initially patient family were amenable to lysis however after further discussion of risks and benefits of thrombolytics they have declined tPA. Patient has been accepted by neurology and ICU team accepting physician Dr. Saldivar discussed case with neurologist Dr. Benitez. Will continue to titrate nicardipine as patient's blood pressure remains in the 190s, initial EKG normal sinus rhythm however appears irregular on the monitor currently will repeat EKG currently. 23: 07 sinus tachycardia left axis premature atrial complexes as well as PVCs. Still uptitrating nicardipine to goal blood pressure range. [facility] transportation team in route. HPI General Date/Time Provider Initiated Documentation: 07/20/23 21:20 . HPI Narrative: 82-year-old female history of hypertension brought in by EMS for acute onset left-sided weakness left facial droop and speech deficit that began around 8 PM this evening, witnessed by . Patient became unsteady slumped over as she was getting into bed, no definitive trauma per . Noted left facial droop issues with speech and left-sided weakness left arm greater than left leg. No history of stroke per , no blood thinner use, no recent surgery. Related Data Home Medications Medication Instructions Recorded Confirmed ibuprofen 200 mg capsule 200 mg PO Q6H PRN 01/27/23 07/20/23 amlodipine 5 mg tablet 5 mg PO DAILY #90 tabs 07/10/23 07/20/23 lisinopril 20 mg tablet 20 mg PO DAILY #90 tabs 07/10/23 07/20/23 Previous Rx's Medication Instructions Recorded amlodipine 5 mg tablet 5 mg PO DAILY #90 tabs 07/10/23 lisinopril 20 mg tablet 20 mg PO DAILY #90 tabs 07/10/23 Allergies Allergy/AdvReac Type Severity Reaction Status Date / Time Penicillins Allergy Unknown Verified 07/20/23 21:28 General Stated Complaint: GenMedical KARUNA: 2 Review of Systems Narrative: Review of Systems Constitutional: negative Eyes: negative ENT: negative Cardiovascular: negative Respiratory: negative Gastrointestinal: negative : negative Musculoskeletal: negative Skin: negative Neurologic: Weakness Psych: negative PFSH All Active Problems (Updated 07/20/23 @ 22:55 by Harley Motta MD) Hypertension (Chronic) Hemiparesis (Acute) Status post hip hemiarthroplasty (Acute 06/20/22) S/p left posterior hip hemiarthroplasty Left displaced femoral neck fracture (Acute ~05/2022) 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 risk (BP not well controlled & declines statin in past) Medical History Breast lump or mass (07/24/04) left breast lump[place] [facility] [place] Right lumbar radiculopathy Tobacco use disorder quit 2004 Surgical History H/O bilateral cataract extraction (~09/2016) S/P total left hip arthroplasty (06/20/22) Family History Mother , AGE 72 Osteoporosis Father , AGE 72 Diabetes Essential hypertension Heart disease Myocardial infarction Stroke Asthma Sister Heart disease Sister Essential hypertension Sister Essential hypertension Sister Essential hypertension Sister Essential hypertension Brother Essential hypertension Brother Essential hypertension Son No problems noted. Son Hyperlipidemia Son Asthma Daughter No problems noted. Brother No problems noted. 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 Pets and animals: Yes Pets and animals: cat(s) and dog(s) Sexually active: No Do you think of yourself as: straight/heterosexual Current gender identity: female What is your relationship status?: How often do you talk on the phone with friends or family?: once per week How often do you get together with friends or relatives?: decline to answer How often do you attend confucianism or caodaism services?: decline to answer Do you belong to any clubs or organized social groups?: no Panel score (0-1 are the most socially isolated patients): 1 What type of physical activity do you participate in: walking Duration: < 15 minutes/day Frequency: 3-4 times per week Anna/Congregation: Hinduism Special anna needs: No Seatbelt use: always Helmet use: Yes Helmet use: always Do you feel safe at home: Yes Do you feel safe in your relationship?: Yes Exam Narrative Exam Narrative: Physical Examination General: alert, awake, cooperative HEENT: normocephalic, atraumatic; PERRL, EOM intact, conjunctiva normal; no nasal discharge; moist mucous membranes, oral and pharyngeal mucosa normal, tolerating secretions Neck: supple, trachea midline; full ROM Chest: normal to inspection Respiratory: normal respiratory effort, speaking in full sentences, clear to auscultation, no wheezing, rales or rhonchi Cardiac: regular rate, regular rhythm, S1S2 intact, no murmurs rubs or gallops GI: abdomen soft, non-tender, non-distended; no palpable mass or hepatosplenomegaly Skin: no lesions, rashes or trauma appreciated Neuro: AAOx3, left facial droop, mild dysarthria, 3+ out of 5 strength left upper extremity, 4-5 strength left lower extremity; 5 out of 5 strength upper right and lower right extremity Psych: Appropriate mood and affect Course Vital Signs Vital signs: Vital Signs Temperature 36.8 C 07/20/23 21:18 Pulse 96 H 07/20/23 21:18 Respiratory Rate 18 07/20/23 21:18 Pulse Oximetry 97 07/20/23 21:18 Temperature 36.8 C 07/20/23 21:18 Pulse 86 07/20/23 21:49 Pulse 98 H 07/20/23 21:50 Respiratory Rate 19 07/20/23 21:50 Respiratory Effort Normal 07/20/23 21:22 Blood Pressure 157/115 H 07/20/23 21:49 Blood Pressure Mean 128 07/20/23 21:49 Pulse Oximetry 97 07/20/23 21:18 Oxygen Delivery Method Room Air 07/20/23 21:18 Oxygen Flow Rate 0 07/20/23 21:18 Pain Level 0 07/20/23 21:18 Lab/Test Results Lab/Test Results: Laboratory Tests Range/Units 07/20/23 21:44 WBC (4.4-10.8) 10^3/uL 7.03 RBC (3.93-5.22) 10^6/uL 4.59 Hgb (11.2-15.7) g/dL 13.4 Hct (36.0-46.0) % 41.7 MCV (80-95) fL 91 MCH (27.0-33.0) pg 29.2 MCHC (32.0-36.0) % 32.1 RDW (11.7-14.6) % 13.4 Plt Count (130-400) 10^3/uL 374 MPV (8.0-11.0) fL 9.2 Immature Gran % 0.4 Neutrophils % 76.1 Lymphocytes % 13.9 Monocytes % 7.3 Eosinophils % 1.7 Basophils % 0.6 Nucleated RBC % (0.0-0.3) % 0.0 Absolute Neutrophils (1.2-6.7) 10^3/uL 5.35 Absolute Lymphocytes (1.2-3.4) 10^3/uL 0.98 L Absolute Monocytes (0.1-0.8) 10^3/uL 0.51 Absolute Eosinophils (0.0-0.7) 10^3/uL 0.12 Absolute Basophils (0.0-0.2) 10^3/uL 0.04 PT (9.1-11.1) sec 10.4 INR (0.9-1.1) 1.0 APTT (23.6-32.8) sec 27.0
[2023-07-20 22:16] LABS: ALT 9 U/L (14-59); AST 14 U/L (15-37); Albumin 3.2 g/dL (3.4-5.0); Alkaline Phosphatase 85 U/L (46-116); Anion Gap 10.8 mmol/L (3-11); BUN 26 mg/dL (7-18); Bilirubin, Total 0.5 mg/dL (0.2-1.0); CO2 24.2 mmol/L (21.0-32.0); CREATININE 1.4 mg/dL (0.55-1.02); Chloride 104 mmol/L (98-107); ETHANOL BLOOD < 3.0 mg/dL (<10); Glucose 163 mg/dL (74-106); Potassium 3.4 mmol/L (3.5-5.1); Sodium 139 mmol/L (136-145); TSH (W/Ref FT4) 4.54 uIU/mL (0.36-3.74); Total Protein 7.8 g/dL (6.4-8.2); Troponin I < 50 ng/L (<or=60)
[2023-07-20] MEDS: niCARdipine 25 MG in Normal Saline 240 ML 50 MG IV (22:20)
[2023-07-20 22:42] LABS: FREE T4 1.25 ng/dL (0.76-1.46)
[2023-07-20 23:44] LABS: Bilirubin Negative (Negative); Blood Negative (Negative); Clarity Clear (Clear); Glucose Negative (Negative); Ketones Trace mg/dL (Negative); Leukocyte Esterase Negative (Negative); Nitrite Negative (Negative); Specific Gravity 1.015 (1.005-1.025); Urobilinogen 0.2 mg/dL (Up to 0.2); pH 5.5 (5-8)
[2023-07-20 23:55] LABS: *AMPHETAMINES SCREEN URINE Negative (Negative); *BARBITURATES SCREEN URINE Negative (Negative); *BENZODIAZEPINES SCREEN URINE Negative (Negative); Cannabinoids THC Negative (Negative); Cocaine Screen,Urine Negative (Negative); METHADONE URINE SCREEN Negative (Negative); OPIATES URINE SCREEN Negative (Negative)
[2023-07-20 23:57] LABS: Tricyclic Antidepressants Negative (Negative)
[2023-07-21] VITALS (13 sets, daily range): BP systolic 148–175; BP diastolic 55–86; PULSE 52–129; RESP 17–25; O2SAT 98
--- NOTE | 2023-07-21 09:36 | W.ED.FU ---
Date of service: 07/21/23 Time of Service: 09:36 Follow Up Plan: Call received from Radiology over-read shows a dissection of the left common carotid, with 50% narrowing [facility] [place] information, spoke with transfer center, message given. They verbalized understanding.
--- NOTE | 2023-07-23 11:51 | NUR.NOTE ---
Accessed chart to determine orders for EKG and to determine whether or not one needs to be cancelled. Nursing Note:
== END 2023-07-21 01:29 | disposition short-term general hospital (02) ==
PROVIDERS: Emergency Provider Emergency Medicine; PCP Nurse Practitioner Family
DX: R29.810 Facial weakness (principal); G81.94 Hemiplegia, unspecified affecting left nondominant side; I10 Essential (primary) hypertension; I45.2 Bifascicular block; E66.9 Obesity, unspecified; Z68.30 Body mass index [BMI] 30.0-30.9, adult; E78.5 Hyperlipidemia, unspecified; Z79.899 Other long term (current) drug therapy; I65.29 Occlusion and stenosis of unspecified carotid artery; R00.0 Tachycardia, unspecified; I49.3 Ventricular premature depolarization; I77.71 Dissection of carotid artery
CPT/HCPCS: 70496; 70498; 80053; 80307; 82962; 93005; 96365; 96366; 99285; 71046; 72170; 80320; 81003; 83735; 84439; 84443; 84484; 85025; 85610; 85730; 93010; J3490

== ENCOUNTER 2023-09-09 02:40 | Emergency (ER) | payer MEDICARE, SELFPAY ==
[2023-09-09 02:45] VITALS: BP 160/80; PULSE 76; RESP 15; TEMP 37.2; O2SAT 100
--- NOTE | 2023-09-09 02:45 | DI.RAD_ITS ---
Exam(s) XR PORTABLE CHEST AP EXAM: XR PORTABLE CHEST AP CLINICAL HISTORY: SOB, eval for pneumonia. TECHNIQUE: 2D digital imaging was performed. COMPARISON: No exams were available for comparison FINDINGS: Single AP portable view. Heart size is upper normal. The mediastinum is not widened. Pulmonary venous hypertension pattern. Suspicious for developing interstitial pulmonary edema. No a irspace infiltrates. No pleural effusions IMPRESSION: Pulmonary venous hypertension pattern. Developing interstitial pulmonary edema. No pleural effusion s. DATA REPOSITORY: RADIATION DOSE DELIVERED:
--- NOTE | 2023-09-09 02:45 | RT.EKG_ITS ---
APPROVED REPORT Exam: Resting ECG Reason for Exam: sob Patient Location: E HR:71 bpm ECG Measurements Heart Rate 71 AXIS ID 177 P 60 QRSd 115 QRS -46 QT 422 T 78 QTc 460 Conclusion Sinus rhythm...normal P axis, V-rate 60- 99 Left anterior fascicular block...axis(240,-40), init forces inf LVH with secondary repolarization abnormality...multi-LVH criteria, abnrm ST-T Anterior infarct, old...Q >40mS, abnormal ST-T, V2-V5 Physician: no stemi
[2023-09-09 02:51] VITALS: BP 160/80; PULSE 75; RESP 23; TEMP 37.2; O2SAT 98
[2023-09-09] MEDS: Albuterol/Ipratropium 3 ML UPD VIAL UPD (02:53)
--- NOTE | 2023-09-09 02:54 | ED.GENADUL_ITS ---
HPI General Stated Complaint: SOB KARUNA: 3 Date/Time Provider Initiated Documentation: 09/09/23 02:41. HPI Narrative: 82-year-old female with past medical history of stroke just a month and a half ago, carotid artery dissection on dual antiplatelet therapy hypertension, arthritis, presents today for evaluation of shortness of breath. Patient states that this evening she developed mild shortness of breath. She denies any exertional component, she denies any chest pain. She denies any chest heaviness or tightness. She denies any pleuritic chest pain. She denies any history of pulmonary embolisms. She denies any recent weight gain. She denies any cough or fever. No other complaints at this time. No other modifying factors. Related Data Home Medications Medication Instructions Recorded Confirmed amlodipine 5 mg tablet 5 mg PO DAILY #90 tabs 07/10/23 08/27/23 aspirin 81 mg tablet,delayed 81 mg PO DAILY 08/21/23 08/27/23 release sennosides 8.6 mg tablet (senna) 17.2 mg (2 x 8.6 mg) PO QHS #60 08/26/23 08/27/23 tabs atorvastatin 40 mg tablet 40 mg PO DAILY #90 tabs 09/08/23 clopidogrel 75 mg tablet 75 mg PO DAILY #90 tabs 09/08/23 hydralazine 50 mg tablet 50 mg PO TID #90 tabs 09/08/23 lisinopril 40 mg tablet 40 mg PO DAILY #30 tabs 09/08/23 Previous Rx's Medication Instructions Recorded amlodipine 5 mg tablet 5 mg PO DAILY #90 tabs 07/10/23 sennosides 8.6 mg tablet (senna) 17.2 mg (2 x 8.6 mg) PO QHS #60 08/26/23 tabs atorvastatin 40 mg tablet 40 mg PO DAILY #90 tabs 09/08/23 clopidogrel 75 mg tablet 75 mg PO DAILY #90 tabs 09/08/23 hydralazine 50 mg tablet 50 mg PO TID #90 tabs 09/08/23 lisinopril 40 mg tablet 40 mg PO DAILY #30 tabs 09/08/23 Allergies Allergy/AdvReac Type Severity Reaction Status Date / Time Penicillins Allergy Unknown Verified 09/09/23 02:48 Review of Systems All systems reviewed & are unremarkable except as noted in HPI and below PFSH All Active Problems (Updated 09/09/23 @ 04:20 by Soto Eubanks DO) CHF (congestive heart failure) (Chronic) Urinary incontinence as sequela of cerebrovascular accident (CVA) (Acute) Stenosis of left internal carotid artery (Chronic 07/2023) 80% on MRA post CVA Hemiplegia, 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 tPA not used due to HTN. Left displaced femoral neck fracture (~05/2022) Right lumbar radiculopathy Tobacco use disorder quit 2004 Breast lump or mass (07/24/04) left breast lump--mammo and [place]/S at [facility] [place] breast clinic 04/2005 Surgical History (Updated 08/27/23 @ 12:46 by Darlene Toscano MD) Status post hip hemiarthroplasty (06/20/22) S/p left posterior hip hemiarthroplasty S/P total left hip arthroplasty (06/20/22) H/O bilateral cataract extraction (~09/2016) Family History Mother , AGE 72 Osteoporosis Father , AGE 72 Diabetes Essential hypertension Heart disease Myocardial infarction Stroke Asthma Sister Heart disease Sister Essential hypertension Sister Essential hypertension Sister Essential hypertension Sister Essential hypertension Brother Essential hypertension Brother Essential hypertension Son No problems noted. Son Hyperlipidemia Son Asthma Daughter No problems noted. Brother No problems noted. 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 Pets and animals: Yes Pets and animals: cat(s) and dog(s) Sexually active: No Do you think of yourself as: straight/heterosexual Current gender identity: female What is your relationship status?: How often do you talk on the phone with friends or family?: once per week How often do you get together with friends or relatives?: decline to answer How often do you attend congregation or rastafarian services?: decline to answer Do you belong to any clubs or organized social groups?: no Panel score (0-1 are the most socially isolated patients): 1 What type of physical activity do you participate in: walking Duration: < 15 minutes/day Frequency: 3-4 times per week Anna/Orthodox: Latter-Day Special anna needs: No Seatbelt use: always Helmet use: Yes Helmet use: always Do you feel safe at home: Yes Do you feel safe in your relationship?: Yes Exam Narrative Exam Narrative: 1.Const: Well-nourished, Well-developed, appearing stated age 2.Eyes: PERRL, no conjunctival injection, and symmetrical lids. 3.ENT: Atraumatic external nose and ears. Moist MM. Neck: Symmetric, trachea midline, No thyromegaly. 4.CVS: +S1/S2, No murmurs or gallops. Peripheral pulses 2+ and equal in all extremities. Brisk capillary refill in all extremities. 5.RESP: Unlabored respiratory effort. Clear to auscultation bilaterally. No wheezes rales or rhonchi 6.GI: Soft, Nontender/Nondistended, No hepatosplenomegaly. No guarding or rebound. 7.MSK: Normocephalic/Atraumatic, Extremities w/o deformity or ttp No cyanosis or clubbing, Normal movement of all extremities. No calf tenderness. No edema. 8.Skin: Warm, Dry. No rashes or lesions. 9.Neuro: senior product marketing manager II-XII grossly intact. Sensation grossly intact, no focal neurolog ic deficits. 10.Psych: (AAO) x3. Appropriate mood and affect Course Vital Signs Vital signs: Vital Signs Temperature 37.2 C 09/09/23 02:45 Pulse 76 09/09/23 02:45 Respiratory Rate 15 09/09/23 02:45 Blood Pressure 160/80 H 09/09/23 02:45 Pulse Oximetry 100 09/09/23 02:45 Temperature 37.2 C 09/09/23 02:51 Temperature Source Temporal Artery Scan 09/09/23 02:51 Pulse 75 09/09/23 02:51 Respiratory Rate 23 09/09/23 02:51 Respiratory Effort Normal, Non-Labored 09/09/23 02:49 Respiratory Depth Normal 09/09/23 02:49 Respiratory Pattern Normal 09/09/23 02:49 Blood Pressure 160/80 H 09/09/23 02:51 Pulse Oximetry 98 09/09/23 02:51 Oxygen Delivery Method Room Air 09/09/23 02:51 Pain Level 0 09/09/23 02:51 Medical Decision Making 82-year-old female with past medical history of stroke just a month and a half ago, carotid artery dissection on dual antiplatelet therapy hypertension, arthritis, presents today for evaluation of shortness of breath. Patient states that this evening she developed mild shortness of breath. She denies any exertional component, she denies any chest pain. She denies any chest heaviness or tightness. She denies any pleuritic chest pain. She denies any history of pulmonary embolisms. She denies any recent weight gain. She denies any cough or fever. No other complaints at this time. No other modifying factors. Exam demonstrates well-appearing female, lungs are clear, no tachycardia, no hypoxemia, current oxygenation is at 100% at room air. No fever. No significant wheeze. Patient does have a distant history of tobacco abuse, so I do wonder if there is a small subclinical wheeze that I cannot appreciate. We will give her breathing treatment to see if this elicits any change in her symptoms. Will get x-ray to rule out pneumonia, will monitor closely and reassess. Patient otherwise looks notably stable. Symptoms appear inconsistent with pulmonary embolism or AL. Will get an EKG. 4:25 AM On reassessment the patient continues to feel very well. She states that her shortness of breath is completely resolved. Chest x-ray shows evidence of mild pulmonary edema, however she is still saturating 98 to 100%. Single dose of 20 mg Lasix was given. Patient is urinating well. Bedside echo demonstrates an ejection fraction around 50 to 55%. Echocardiogram at [facility] on 07/21/2023 so shows an ejection fraction in the mid 60s. These certainly appear fairly equivalent. However I do recommend outpatient echo on a.emergent basis for comparison. Electrolytes stable. Renal function good. proBNP only mildly elevated at 458. Troponin normal. COVID flu and RSV negative. Discussed the case with the patient's who is at bedside. Recommend avoidance of salty foods close follow-up with Dr. Toscano. Patient otherwise looks well and shows no signs to suggest severe pulmonary edema requiring admission or continue Lasix. No evidence of AL. No other abnormality. Patient's mental status and neurologic status appear to be at baseline personal exam as well as adverse is verified by . Patient stable for discharge. I have extensively reviewed the treatment plan and discharge instructions with the patient and their family. I have addressed all patient concerns at this time. The patient and family was made aware of what symptoms to monitor for that would warrant a return to the emergency department. Discussed the plan with the patient and family, they demonstrate verbal understanding and agreement with our assessment and plan at this time. The documentation in this chart was dictated using [employer] dictation software. Please excuse any dictation errors. FINDINGS: Lungs: Hydrostatic interstitial pulmonary edema/CHF. No focal airspace opacity. Pleural spaces: Unremarkable. No pleural effusion. No pneumothorax. Heart/Mediastinum: Unremarkable. No cardiomegaly. Bones/joints: Unremarkable. IMPRESSION: Hydrostatic interstitial pulmonary edema/CHF. Thank you for allowing us to participate in the care of your patient. Dictated and Authenticated by: Hima Arnold MD 09/09/2023 3:19 AM Eastern Time ([place] & [place]) Quality:SDOH Health Related Social Needs: No Data to Display Discharge Plan Disposition Patient Disposition: Home Discharge Details Chief Complaint: SOB Clinical Impression: CHF (congestive heart failure) Primary Care Provider: Darlene Toscano ED Provider: Soto Eubanks Home Meds and New Rx's Prescriptions: No Action amlodipine 5 mg tablet 5 mg PO DAILY Qty: 90 3RF aspirin 81 mg tablet,delayed release (DR/EC) 81 mg PO DAILY sennosides [senna] 8.6 mg tablet 17.2 mg PO QHS Qty: 60 5RF hydralazine 50 mg tablet 50 mg PO TID Qty: 90 1RF lisinopril 40 mg tablet 40 mg PO DAILY Qty: 30 2RF clopidogrel 75 mg tablet 75 mg PO DAILY Qty: 90 3RF Rx Instructions: for 70 days 08/16/23 atorvastatin 40 mg tablet 40 mg PO DAILY Qty: 90 3RF Discharge Instructions Instructions: Pulmonary Edema (ED) Additional Instructions: At this time your workup has returned and shows that you have a very mild amount of extra fluid in your lungs. We call this mild congestive heart failure. You are given a diuretic to help get that out, which will cause some increased episodes of urination over the next 12 to 24 hours. Please avoid salty foods, follow-up closely with your primary care provider for reassessment and formal emergent echocardiogram for comparison with the one that was performed at [facility] 2 months ago. If you notice any worsening of your symptoms, or any new symptoms such as vomiting, diarrhea, fever, chills, shortness of breath, chest pain, numbness, weakness, or fainting , please return immediately to the emergency department for reevaluation. Please follow up with your primary care provider as soon as possible for reassessment and reevaluation. As always, it was a pleasure participating in your medical care today. Referrals: Darlene Toscano MD [Primary Care Provider] - POCUS Exam (ED) Limited Cardiac Exam DATE OF EXAM: 09/09/23 TIME OF EXAM: 03:54 PROVIDER THAT PERFORMED THE STUDY: Soto Eubanks REASON FOR EXAM: Dyspnea VISUALIZED STRUCTURES: Left atrium, Left ventricle, Right ventricle and Interventricular septum VIEW OBTAINED: Parasternal long-axis PERTINENT FINDINGS/IMPRESSION: Other (Trace pericardial effusion, slight dimi nished ejection fraction at around 50%.) Exam complete
--- NOTE | 2023-09-09 03:19 | DI.VRAD_ITS ---
PROCEDURE INFORMATION: Exam: XR Chest Exam date and time: 09/09/2023 3:07 AM Age: 82 years old Clinical indication: Shortness of breath; Patient HX: SOB, eval for pneumonia TECHNIQUE: Imaging protocol: Radiologic exam of the chest. Views: 1 view. COMPARISON: CR XR CHEST 2V PA LATERAL 07/20/2023 9:41 PM FINDINGS: Lungs: Hydrostatic interstitial pulmonary edema/CHF. No focal airspace opacity. Pleural spaces: Unremarkable. No pleural effusion. No pneumothorax. Heart/Mediastinum: Unremarkable. No cardiomegaly. Bones/joints: Unremarkable. IMPRESSION: Hydrostatic interstitial pulmonary edema/CHF. Dictated and Authenticated by: Hima Arnold MD. Ordering:JO Valera MD
[2023-09-09 03:33] LABS: COVID-19 PCR Negative (Negative); Influenza A PCR Negative (Negative); Influenza B PCR Negative (Negative); RSV PCR Negative (Negative)
[2023-09-09 03:43] LABS: Source Nasopharynx
[2023-09-09] MEDS: Furosemide 20 MG/2 ML VIAL IVP (03:43)
[2023-09-09 03:44] LABS: Abs Immature Grans 0.01 10^3/uL (0.0-0.06); Absolute Basophil Count 0.04 10^3/uL (0.0-0.2); Absolute Eosinophil Count 0.17 10^3/uL (0.0-0.7); Absolute Lymphocyte Count 1.04 10^3/uL (1.2-3.4); Absolute Monocyte Count 0.56 10^3/uL (0.1-0.8); Absolute Neutrophil Count 3.72 10^3/uL (1.2-6.7); Basophils % 0.7; Eosinophils % 3.1; HCT 41.2 % (36.0-46.0); HGB 13.3 g/dL (11.2-15.7); Immature Grans % 0.2; Lymphocytes % 18.8; MCH 28.9 pg (27.0-33.0); MCHC 32.3 % (32.0-36.0); MCV 90 fL (80-95); MPV 9.1 fL (8.0-11.0); Monocytes % 10.1; Neutrophils % 67.1; Platelet Count 334 10^3/uL (130-400); RDW 13.7 % (11.7-14.6); RDW-SD 44.9 fL; WBC 5.54 10^3/uL (4.4-10.8)
[2023-09-09 03:57] LABS: INR 1.1 (0.9-1.1); Prothrombin Time 10.7 sec (9.1-11.1)
[2023-09-09 04:06] LABS: ALT 14 U/L (14-59); AST 20 U/L (15-37); Albumin 2.9 g/dL (3.4-5.0); Alkaline Phosphatase 81 U/L (46-116); Anion Gap 11.3 mmol/L (3-11); BUN 18 mg/dL (7-18); Bilirubin, Total 0.5 mg/dL (0.2-1.0); CO2 23.7 mmol/L (21.0-32.0); Calcium 8.7 mg/dL (8.5-10.1); Chloride 106 mmol/L (98-107); Glucose 110 mg/dL (74-106); NT-proBNP 458 pg/mL (<300); Potassium 3.4 mmol/L (3.5-5.1); Sodium 141 mmol/L (136-145); Total Protein 7.4 g/dL (6.4-8.2); Troponin I < 50 ng/L (< or =60)
[2023-09-09 04:58] VITALS: BP 170/77; PULSE 72; RESP 17; TEMP 36.8; O2SAT 96
== END 2023-09-09 04:42 | disposition home or self-care (01) ==
PROVIDERS: Emergency Provider Student in an Organized Health Care Education/Training Program; PCP Family Medicine
DX: R06.02 Shortness of breath (principal); I11.0 Hypertensive heart disease with heart failure; I50.9 Heart failure, unspecified; I69.354 Hemiplegia and hemiparesis following cerebral infarction affecting left non-dominant side; E78.5 Hyperlipidemia, unspecified; Z79.01 Long term (current) use of anticoagulants; Z79.82 Long term (current) use of aspirin; Z87.891 Personal history of nicotine dependence
CPT/HCPCS: 80053; 87637; 93005; 93308; 94640; 96374; 99284; 71045; 83880; 84484; 85025; 85610; 85730; 93010; J1941; J7620

== ENCOUNTER 2023-09-11 21:14 | Emergency (ER) | payer MEDICARE, SELFPAY ==
[2023-09-11] VITALS (17 sets, daily range): BP systolic 149–164; BP diastolic 54–78; PULSE 68–104; RESP 13–27; TEMP 36.5; O2SAT 99
--- NOTE | 2023-09-11 21:15 | RT.EKG_ITS ---
APPROVED REPORT Exam: Resting ECG Reason for Exam: short of breath Patient Location: E HR:82 bpm ECG Measurements Heart Rate 82 AXIS OK 166 P 48 QRSd 112 QRS -42 QT 393 T 76 QTc 452 Conclusion Sinus rhythm normal axis PACs no acute st changes
--- NOTE | 2023-09-11 21:30 | DI.RAD_ITS ---
Exam(s) XR PORTABLE CHEST AP EXAM: XR PORTABLE CHEST AP CLINICAL HISTORY: sob. TECHNIQUE: 2D digital imaging was performed. COMPARISON: CR,XR XR CHEST 2V PA LATERAL from 07/20/2023 CR,XR XR PORTABLE CHEST AP from 09/09/2023 FINDINGS: Single AP portable view. Heart size is upper normal. The mediastinum is not widened. There are no infiltrates nor pleural effusions evident. There are no Franklin B lines. IMPRESSION: Less evidence for pulmonary edema than was evident on chest x-ray 2 days ago. Recommend nonportable PA and lateral views when clinically possible for added specificity DATA REPOSITORY: RADIATION DOSE DELIVERED:
[2023-09-11 21:46] LABS: Abs Immature Grans 0.02 10^3/uL (0.0-0.06); Absolute Basophil Count 0.04 10^3/uL (0.0-0.2); Absolute Eosinophil Count 0.16 10^3/uL (0.0-0.7); Absolute Lymphocyte Count 1.09 10^3/uL (1.2-3.4); Absolute Monocyte Count 0.57 10^3/uL (0.1-0.8); Absolute Neutrophil Count 3.63 10^3/uL (1.2-6.7); Basophils % 0.7; Eosinophils % 2.9; HCT 40.6 % (36.0-46.0); Immature Grans % 0.4; Lymphocytes % 19.8; MCH 28.9 pg (27.0-33.0); MCV 90 fL (80-95); MPV 9.3 fL (8.0-11.0); Monocytes % 10.3; Neutrophils % 65.9; Platelet Count 366 10^3/uL (130-400); RDW 13.8 % (11.7-14.6); RDW-SD 46.1 fL; WBC 5.51 10^3/uL (4.4-10.8)
[2023-09-11 22:09] LABS: ALT 18 U/L (14-59); AST 18 U/L (15-37); Alkaline Phosphatase 89 U/L (46-116); Anion Gap 11.8 mmol/L (3-11); BUN 21 mg/dL (7-18); Bilirubin, Total 0.4 mg/dL (0.2-1.0); CO2 24.2 mmol/L (21.0-32.0); CREATININE 1.2 mg/dL (0.55-1.02); Calcium 9.2 mg/dL (8.5-10.1); Chloride 107 mmol/L (98-107); Estimated GFR 45.48 (mL/min/1.73m2); Glucose 132 mg/dL (74-106); NT-proBNP 364 pg/mL (<300); Potassium 3.1 mmol/L (3.5-5.1); Sodium 143 mmol/L (136-145); Total Protein 7.4 g/dL (6.4-8.2); Troponin I < 50 ng/L (< or =60)
--- NOTE | 2023-09-11 22:09 | DI.VRAD_ITS ---
PROCEDURE INFORMATION: Exam: XR Chest Exam date and time: 09/11/2023 9:53 PM Age: 82 years old Clinical indication: Shortness of breath TECHNIQUE: Imaging protocol: Radiologic exam of the chest. Views: 1 view. COMPARISON: CR XR PORTABLE CHEST AP 09/09/2023 3:07 AM FINDINGS: Lungs: Mild prominence of the pulmonary vascular interstitium compatible with hydrostatic interstitial pulmonary edema/CHF. No focal airspace opacity. Pleural spaces: Unremarkable. No pleural effusion. No pneumothorax. Heart/Mediastinum: Unremarkable. No cardiomegaly. Bones/joints: Unremarkable. IMPRESSION: Mild prominence of the pulmonary vascular interstitium compatible with hydrostatic interstitial pulmonary edema/CHF. Dictated and Authenticated by: Hima Arnold MD. Ordering:BOBBI Sharp MD
[2023-09-11 22:22] LABS: COVID-19 PCR Negative (Negative); Influenza A PCR Negative (Negative); Influenza B PCR Negative (Negative); RSV PCR Negative (Negative)
[2023-09-11 22:23] LABS: Source Nasopharynx
--- NOTE | 2023-09-11 22:38 | ED.GENADUL_ITS ---
HPI General Date/Time Provider Initiated Documentation: 09/11/23 21:23 . Limitations to Documentation: no limitations . Information obtained by: patient and family . HPI Narrative: 82-year-old female with past medical history of hypertension, CVA, left-sided residual deficits, CHF presents for evaluation of shortness of breath. The reports that the patient woke him up from sleep saying that she was short of breath. There is no cough or difficulty breathing. She does not use CPAP or oxygen at home. Patient was recently evaluated in the emergency department for similar symptoms. Related Data Home Medications Medication Instructions Recorded Confirmed amlodipine 5 mg tablet 5 mg PO DAILY #90 tabs 07/10/23 09/09/23 aspirin 81 mg tablet,delayed 81 mg PO DAILY 08/21/23 09/09/23 release sennosides 8.6 mg tablet (senna) 17.2 mg (2 x 8.6 mg) PO QHS #60 08/26/23 09/09/23 tabs atorvastatin 40 mg tablet 40 mg PO DAILY #90 tabs 09/08/23 09/09/23 clopidogrel 75 mg tablet 75 mg PO DAILY #90 tabs 09/08/23 09/09/23 hydralazine 50 mg tablet 50 mg PO TID #90 tabs 09/08/23 09/09/23 lisinopril 40 mg tablet 40 mg PO DAILY #30 tabs 09/08/23 09/09/23 Previous Rx's Medication Instructions Recorded amlodipine 5 mg tablet 5 mg PO DAILY #90 tabs 07/10/23 sennosides 8.6 mg tablet (senna) 17.2 mg (2 x 8.6 mg) PO QHS #60 08/26/23 tabs atorvastatin 40 mg tablet 40 mg PO DAILY #90 tabs 09/08/23 clopidogrel 75 mg tablet 75 mg PO DAILY #90 tabs 09/08/23 hydralazine 50 mg tablet 50 mg PO TID #90 tabs 09/08/23 lisinopril 40 mg tablet 40 mg PO DAILY #30 tabs 09/08/23 Allergies Allergy/AdvReac Type Severity Reaction Status Date / Time Penicillins Allergy Unknown Verified 09/11/23 21:26 General Stated Complaint: SOB KARUNA: 3 Exam Narrative Exam Narrative: Review of Systems: All systems reviewed & are unremarkable except as noted in HPI and below Well-developed, no acute distress NACT PERRL, normal conjunctiva RRR Unlabored respiratory effort, clear breath sounds bilaterally, no tachypnea, no hypoxia Nondistended abdomen, nontender Extremities w/o deformity, no cyanosis, no edema No rashes or lesions. no focal neurologic deficits Appropriate mood and affect Course Vital Signs Vital signs: Vital Signs Temperature 36.5 C 09/11/23 21:21 Pulse 82 09/11/23 21:21 Respiratory Rate 20 09/11/23 21:21 Blood Pressure 162/77 H 09/11/23 21:21 Pulse Oximetry 99 09/11/23 21:21 Temperature 36.5 C 09/11/23 21:21 Temperature Source Skin 09/11/23 21:21 Pulse 68 09/11/23 21:46 Pulse 81 09/11/23 21:50 Respiratory Rate 17 09/11/23 21:50 Respiratory Effort Normal 09/11/23 21:23 Respiratory Depth Normal 09/11/23 21:23 Respiratory Pattern Normal 09/11/23 21:23 Blood Pressure 159/58 H 09/11/23 21:46 Blood Pressure Mean 99 09/11/23 21:46 Blood Pressure Position Sitting 09/11/23 21:21 Pulse Oximetry 99 09/11/23 21:21 Oxygen Delivery Method Room Air 09/11/23 21:21 Oxygen Flow Rate 0 09/11/23 21:21 Pain Level 0 09/11/23 21:21 Lab/Test Results Lab/Test Results: Laboratory Tests Range/Units 09/11/23 09/11/23 21:25 21:39 WBC (4.4-10.8) 10^3/uL 5.51 RBC (3.93-5.22) 10^6/uL 4.50 Hgb (11.2-15.7) g/dL 13.0 Hct (36.0-46.0) % 40.6 MCV (80-95) fL 90 MCH (27.0-33.0) pg 28.9 MCHC (32.0-36.0) % 32.0 RDW (11.7-14.6) % 13.8 Plt Count (130-400) 10^3/uL 366 MPV (8.0-11.0) fL 9.3 Immature Gran % 0.4 Neutrophils % 65.9 Lymphocytes % 19.8 Monocytes % 10.3 Eosinophils % 2.9 Basophils % 0.7 Nucleated RBC % (0.0-0.3) % 0.0 Absolute Neutrophils (1.2-6.7) 10^3/uL 3.63 Absolute Lymphocytes (1.2-3.4) 10^3/uL 1.09 L Absolute Monocytes (0.1-0.8) 10^3/uL 0.57 Absolute Eosinophils (0.0-0.7) 10^3/uL 0.16 Absolute Basophils (0.0-0.2) 10^3/uL 0.04 Sodium (136-145) mmol/L 143 Potassium (3.5-5.1) mmol/L 3.1 L Chloride (98-107) mmol/L 107 Carbon Dioxide (21.0-32.0) mmol/L 24.2 Anion Gap (3-11) mmol/L 11.8 H BUN (7-18) mg/dL 21 H Creatinine (0.55-1.02) mg/dL 1.2 H Est GFR (CKD-EPI 2020) (mL/min/1.73m2) 45.48 Glucose (74-106) mg/dL 132 H Calcium (8.5-10.1) mg/dL 9.2 Magnesium (1.8-2.4) mg/dL 2.0 Total Bilirubin (0.2-1.0) mg/dL 0.4 AST (15-37) U/L 18 ALT (14-59) U/L 18 Alkaline Phosphatase (46-116) U/L 89 Troponin I (< or =60) ng/L < 50 NT-Pro-B Natriuret Pep (<300) pg/mL 364 H Total Protein (6.4-8.2) g/dL 7.4 Albumin (3.4-5.0) g/dL 3.0 L COVID-19 Source Nasopharynx SARS-CoV-2 (PCR) (Negative) Negative Influenza Type A (PCR) (Negative) Negative Influenza Type B (PCR) (Negative) Negative RSV (PCR) (Negative) Negative Medical Decision Making Emergent evaluation of shortness of breath. Patient has no tachypnea, hypoxia, increased work of breathing or abnormal breath sounds. I reviewed her medical record and noted recent emergency department visit for similar symptoms. Objectively the patient appears very comfortable. There does seem to be some mental status abnormality likely some dementia which would be consistent with her prior CVA. But the patient does not have any diagnosis at this. She denies any chest pain, so I doubt any cardiac etiology of the symptoms. Will also evaluate for pneumonia or viral illness. Lab work reviewed. CBC without leukocytosis or anemia. Her potassium level is slightly low at 3.1. An oral dose of potassium will be given. Her creatinine is 1.2, which seems to be about her baseline. Her troponin is negative. Her BNP is improved from 2 days ago. Her viral testing is negative. Her chest x- ray was reviewed. She does have some signs of cardiomegaly and stable CHF. At this time I do not feel diuresis is indicated as she has no respiratory symptoms. 2240: At this time I do not feel that there is additional emergent workup that is indicated for this patient. I discussed this with the and the patient. The is fairly upset stating that we did nothing for her. He states that he wants her to get diuretics and that he states that he wants her to get sleeping medication because she is not sleeping at home and this is the real issue. I do not feel that the patient would benefit from diuretics at this time. She has borderline kidney function and low potassium. She is not she hypoxic, tachypneic, her breath sounds are clear. I have explained this to the patient and her . Regarding his request for sleeping medication, I feel highly uncomfortable about this and stated I would not be prescribing sleeping medication and that he if he feels like she needs sleeping medication this again would be something to address with her primary care provider. Medical Records Medical records reviewed: Yes I reviewed the patient's medical records. Lab Data Lab results reviewed: Yes I reviewed the patient's lab results. 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 tPA not used due to HTN. Left displaced femoral neck fracture (~05/2022) Right lumbar radiculopathy Tobacco use disorder quit 2004 Breast lump or mass (07/24/04) left breast lump--mammo and u/S at [facility]=neg breast clinic 04/2005 Surgical History (Updated 08/27/23 @ 12:46 by Darlene Toscano MD) Status post hip hemiarthroplasty (06/20/22) S/p left posterior hip hemiarthroplasty S/P total left hip arthroplasty (06/20/22) H/O bilateral cataract extraction (~09/2016) Family History Mother , AGE 72 Osteoporosis Father , AGE 72 Diabetes Essential hypertension Heart disease Myocardial infarction Stroke Asthma Sister Heart disease Sister Essential hypertension Sister Essential hypertension Sister Essential hypertension Sister Essential hypertension Brother Essential hypertension Brother Essential hypertension Son No problems noted. Son Hyperlipidemia Son Asthma Daughter No problems noted. Brother No problems noted. 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 Pets and animals: Yes Pets and animals: cat(s) and dog(s) Sexually active: No Do you think of yourself as: straight/heterosexual Current gender identity: female What is your relationship status?: How often do you talk on the phone with friends or family?: once per week How often do you get together with friends or relatives?: decline to answer How often do you attend rastafarian or pentecostalism services?: decline to answer Do you belong to any clubs or organized social groups?: no Panel score (0-1 are the most socially isolated patients): 1 What type of physical activity do you participate in: walking Duration: < 15 minutes/day Frequency: 3-4 times per week Nana/Hoahaoism: Adventist Special anna needs: No Seatbelt use: always Helmet use: Yes Helmet use: always Do you feel safe at home: Yes Do you feel safe in your relationship?: Yes Discharge Plan Disposition Patient Disposition: Home Condition: Stable Discharge Details Clinical Impression: Shortness of breath Primary Care Provider: Darlene Toscano ED Provider: Remington Hoang Home Meds and New Rx's Prescriptions: No Action amlodipine 5 mg tablet 5 mg PO DAILY Qty: 90 3RF aspirin 81 mg tablet,delayed release (DR/EC) 81 mg PO DAILY sennosides [senna] 8.6 mg tablet 17.2 mg PO QHS Qty: 60 5RF hydralazine 50 mg tablet 50 mg PO TID Qty: 90 1RF lisinopril 40 mg tablet 40 mg PO DAILY Qty: 30 2RF clopidogrel 75 mg tablet 75 mg PO DAILY Qty: 90 3RF Rx Instructions: for 70 days 08/16/23 atorvastatin 40 mg tablet 40 mg PO DAILY Qty: 90 3RF Discharge Instructions Instructions: Dyspnea (ED) Additional Instructions: please keep your follow up appointment with your primary care doctor tomorrow to address your concerns for her breathing and needing sleeping medication
== END 2023-09-11 22:56 | disposition home or self-care (01) ==
PROVIDERS: Emergency Provider Emergency Medicine; PCP Family Medicine
DX: R06.02 Shortness of breath (principal); I11.0 Hypertensive heart disease with heart failure; I50.9 Heart failure, unspecified; I69.354 Hemiplegia and hemiparesis following cerebral infarction affecting left non-dominant side; Z11.52 Encounter for screening for COVID-19; Z79.02 Long term (current) use of antithrombotics/antiplatelets; E78.5 Hyperlipidemia, unspecified; Z87.891 Personal history of nicotine dependence
CPT/HCPCS: 36415; 80053; 87637; 93005; 99283; 71045; 83735; 83880; 84484; 85025; 93010

== ENCOUNTER 2023-09-23 18:21 | Emergency (ER) | payer MEDICARE, SELFPAY ==
[2023-09-23] VITALS (15 sets, daily range): BP systolic 114–138; BP diastolic 67–87; PULSE 66–77; RESP 11–20; TEMP 36; O2SAT 98
--- NOTE | 2023-09-23 18:15 | RT.EKG_ITS ---
APPROVED REPORT Exam: Resting ECG Reason for Exam: Chest Pain Patient Location: E HR:75 bpm ECG Measurements Heart Rate 75 AXIS IN 171 P 31 QRSd 111 QRS -58 QT 411 T 57 QTc 461 Conclusion Sinus rhythm. normal axis non specific ST segment chnages
--- NOTE | 2023-09-23 18:30 | DI.RAD_ITS ---
Exam(s) XR PORTABLE CHEST AP EXAM: XR PORTABLE CHEST AP CLINICAL HISTORY: shortness of breath TECHNIQUE: 2D digital imaging was performed of the chest. One image was obtained. An AP view was ob tained. COMPARISON: CR,XR XR PORTABLE CHEST AP from 09/11/2023 FINDINGS: MEDIASTINUM: Normal. HEART: Normal. PULMONARY VASCULATURE: Normal. Atherosclerosis of the thoracic aorta is noted. LUNGS: The lungs appear hyperinflated suggesting underlying COPD. No focal infiltrates are seen. Un changed scarring is seen in the left mid lung. PLEURAL SPACE: No pleural effusion or pneumothorax. BONE:Within normal limits for the patient's age. OTHER FINDINGS:Electronic device is seen overlying the left chest. IMPRESSION: No acute pulmonary findings. DATA REPOSITORY: RADIATION DOSE DELIVERED:
--- NOTE | 2023-09-23 18:45 | ED.GENADUL_ITS ---
HPI General Date/Time Provider Initiated Documentation: 09/23/23 18:22 . Limitations to Documentation: no limitations . Information obtained by: patient . HPI Narrative: 82-year-old female with past medical history of CVA, cognitive impairment, hypertension presents for evaluation of shortness of breath. says that they have been battling this for some time. He reports that the patient has not slept for the last 3 nights because of her shortness of breath. The patient states that she cannot breathe. They were recently evaluated in the emergency department as well as by primary care. Primary care provider gave them a prescription for sleeping medication but the states that it was too strong and he did not give her any additional doses after the first night. Related Data Home Medications Medication Instructions Recorded Confirmed aspirin 81 mg tablet,delayed 81 mg PO DAILY 08/21/23 09/23/23 release sennosides 8.6 mg tablet (senna) 17.2 mg (2 x 8.6 mg) PO QHS #60 08/26/23 09/23/23 tabs atorvastatin 40 mg tablet 40 mg PO DAILY #90 tabs 09/08/23 09/23/23 clopidogrel 75 mg tablet 75 mg PO DAILY #90 tabs 09/08/23 09/23/23 lisinopril 40 mg tablet 40 mg PO DAILY #30 tabs 09/08/23 09/23/23 amlodipine 10 mg tablet 10 mg PO DAILY #90 tabs 09/12/23 09/23/23 aspirin 81 mg chewable tablet 81.0 mg PO DAILY #90 tabs 09/12/23 09/23/23 hydralazine 25 mg tablet 25 mg PO TID #90 tabs 09/15/23 09/23/23 docusate sodium 100 mg capsule 100 mg PO DAILY 09/23/23 09/23/23 (Colace) Previous Rx's Medication Instructions Recorded sennosides 8.6 mg tablet (senna) 17.2 mg (2 x 8.6 mg) PO QHS #60 08/26/23 tabs atorvastatin 40 mg tablet 40 mg PO DAILY #90 tabs 09/08/23 clopidogrel 75 mg tablet 75 mg PO DAILY #90 tabs 09/08/23 lisinopril 40 mg tablet 40 mg PO DAILY #30 tabs 09/08/23 amlodipine 10 mg tablet 10 mg PO DAILY #90 tabs 09/12/23 aspirin 81 mg chewable tablet 81.0 mg PO DAILY #90 tabs 09/12/23 hydralazine 25 mg tablet 25 mg PO TID #90 tabs 09/15/23 Allergies Allergy/AdvReac Type Severity Reaction Status Date / Time Penicillins Allergy Unknown Verified 09/23/23 18:34 General Stated Complaint: SOB KARUNA: 3 Exam Narrative Exam Narrative: Review of Systems: All systems reviewed & are unremarkable except as noted in HPI and below Well-developed, no acute distress NCAT PERRL, normal conjunctiva RRR, no murmurs rubs or gallops, is wearing a monitor Unlabored respiratory effort, no tachypnea, no accessory muscle use, no hypoxia, clear breath sounds in all lung mccullough bilaterally Nondistended abdomen, nontender Extremities w/o deformity, no cyanosis, no edema No rashes or lesions. no focal neurologic deficits Flat affect, anxious mood Course Vital Signs Vital signs: Vital Signs Temperature 36.0 C L 09/23/23 18:27 Pulse 77 09/23/23 18:27 Respiratory Rate 16 09/23/23 18:27 Blood Pressure 129/87 09/23/23 18:27 Pulse Oximetry 98 09/23/23 18:27 Temperature 36.0 C L 09/23/23 18:27 Temperature Source Skin 09/23/23 18:27 Pulse 77 09/23/23 18:27 Respiratory Rate 16 09/23/23 18:27 Respiratory Effort Short of Breath 09/23/23 18:33 Blood Pressure 129/87 09/23/23 18:27 Blood Pressure Position Sitting 09/23/23 18:27 Pulse Oximetry 98 09/23/23 18:27 Oxygen Delivery Method Room Air 09/23/23 18:27 Oxygen Flow Rate 0 09/23/23 18:27 Medical Decision Making Emergent evaluation of shortness of breath. Initial differential includes viral illness, pneumonia, anxiety, volume overload. At this time the patient has no signs of respiratory distress. She is telling me that she is not breathing however objectively there is no evidence of dyspnea. She is speaking in full and complete sentences. The disregarded recent primary care visit that was addressing the symptoms and the component of anxiety. He is most concerned about her sleeping. It sounds as if he is not sleeping and that this is causing him great stress as well. I reviewed prior workups. At this time I have a low suspicion for an acute cardiopulmonary etiology as the patient does not have any signs of respiratory distress or respiratory failure. Her EKG is sinus, 75 LVH but no significant changes from prior. Lab work reviewed. She has no leukocytosis, no anemia. Potassium level is within normal limits, creatinine at baseline. proBNP stable. Troponin negative. Chest x-ray reviewed and independently interpreted by me and there is no signs of pulmonary edema or pleural effusion. Given these findings as well as her physical exam, I am very reassured that there is no evidence of acute infectious etiology or decompensated CHF. is requesting sleep medication. A dose of Benadryl will be given prior to her departure. Advised that any additional medication changes should be addressed with a primary care physician. They have an appointment tomorrow at 4 PM. Medical Records Medical records reviewed: Yes I reviewed the patient's medical records. Lab Data Lab results reviewed: Yes I reviewed the patient's lab results. 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 MOCA 08/2023. 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 tPA not used due to HTN. Left displaced femoral neck fracture (~05/2022) Right lumbar radiculopathy Tobacco use disorder quit 2004 Breast lump or mass (07/24/04) left breast lump--mammo and u/S at [facility]=neg breast clinic 04/2005 Surgical History Status post hip hemiarthroplasty (06/20/22) S/p left posterior hip hemiarthroplasty S/P total left hip arthroplasty (06/20/22) H/O bilateral cataract extraction (~09/2016) Family History Mother , AGE 72 Osteoporosis Father , AGE 72 Diabetes Essential hypertension Heart disease Myocardial infarction Stroke Asthma Sister Heart disease Sister Essential hypertension Sister Essential hypertension Sister Essential hypertension Sister Essential hypertension Brother Essential hypertension Brother Essential hypertension Son No problems noted. Son Hyperlipidemia Son Asthma Daughter No problems noted. Brother No problems noted. 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 Pets and animals: Yes Pets and animals: cat(s) and dog(s) Sexually active: No Do you think of yourself as: straight/heterosexual Current gender identity: female What is your relationship status?: How often do you talk on the phone with friends or family?: once per week How often do you get together with friends or relatives?: decline to answer How often do you attend protestant or restorationist services?: decline to answer Do you belong to any clubs or organized social groups?: no Panel score (0-1 are the most socially isolated patients): 1 What type of physical activity do you participate in: walking Duration: < 15 minutes/day Frequency: 3-4 times per week Anna/Tenriism: Worship Special anna needs: No Seatbelt use: always Helmet use: Yes Helmet use: always Do you feel safe at home: Yes Do you feel safe in your relationship?: Yes Discharge Plan Disposition Patient Disposition: Home Condition: Stable Discharge Details Clinical Impression: Anxiety disorder due to medical condition, Shortness of breath, Dyspnea Primary Care Provider: Darlene Toscano ED Provider: Remington Hoang Home Meds and New Rx's Prescriptions: No Action aspirin 81 mg tablet,chewable 81.0 mg PO DAILY Qty: 90 3RF amlodipine 10 mg tablet 10 mg PO DAILY Qty: 90 3RF aspirin 81 mg tablet,delayed release (DR/EC) 81 mg PO DAILY Hold Instructions: Duplicate sennosides [senna] 8.6 mg tablet 17.2 mg PO QHS Qty: 60 5RF lisinopril 40 mg tablet 40 mg PO DAILY Qty: 30 2RF clopidogrel 75 mg tablet 75 mg PO DAILY Qty: 90 3RF Rx Instructions: for 70 days 08/16/ atorvastatin 40 mg tablet 40 mg PO DAILY Qty: 90 3RF hydralazine 25 mg tablet 25 mg PO TID Qty: 90 1RF docusate sodium [Colace] 100 mg capsule 100 mg PO DAILY Discharge Instructions Additional Instructions: please follow up with your appointment tomorrow with your primary care doctor you were given a dose of benadryl tonight to help with sleep, additional sleep medications should be discussed with your doctor tomorrow
[2023-09-23 18:54] LABS: Abs Immature Grans 0.03 10^3/uL (0.0-0.06); Absolute Basophil Count 0.05 10^3/uL (0.0-0.2); Absolute Eosinophil Count 0.23 10^3/uL (0.0-0.7); Absolute Monocyte Count 0.68 10^3/uL (0.1-0.8); Absolute Neutrophil Count 4.79 10^3/uL (1.2-6.7); Basophils % 0.7; Eosinophils % 3.2; HCT 41.1 % (36.0-46.0); HGB 13.4 g/dL (11.2-15.7); Immature Grans % 0.4; Lymphocytes % 19.5; MCH 29.1 pg (27.0-33.0); MCHC 32.6 % (32.0-36.0); MCV 89 fL (80-95); MPV 9.1 fL (8.0-11.0); Monocytes % 9.5; Neutrophils % 66.7; Platelet Count 416 10^3/uL (130-400); RBC 4.61 10^6/uL (3.93-5.22); RDW 14.1 % (11.7-14.6); RDW-SD 45.8 fL; WBC 7.18 10^3/uL (4.4-10.8)
--- NOTE | 2023-09-23 19:05 | DI.VRAD_ITS ---
PROCEDURE INFORMATION: Exam: XR Chest Exam date and time: 09/23/2023 6:54 PM Age: 82 years old Clinical indication: Shortness of breath; Patient HX: SOB TECHNIQUE: Imaging protocol: Radiologic exam of the chest. Views: 1 view. COMPARISON: CR XR PORTABLE CHEST AP 09/11/2023 9:53 PM FINDINGS: Tubes, catheters and devices: Monitoring wires noted. Electronic device noted at the left chest. Lungs: Lungs are hyperaerated. No consolidation. No vascular congestion. Pleural spaces: Unremarkable. No pleural effusion. No pneumothorax. Heart/Mediastinum: Mild cardiomegaly. Bones/joints: Moderate arthropathy noted in the shoulders. IMPRESSION: Chronic lung disease. No acute cardiopulmonary abnormality. Dictated and Authenticated by: Palmer Khan MD. Ordering:BOBBI Sharp MD
[2023-09-23 19:19] LABS: ALT 27 U/L (14-59); AST 20 U/L (15-37); Albumin 3.5 g/dL (3.4-5.0); Alkaline Phosphatase 104 U/L (46-116); Anion Gap 12.3 mmol/L (3-11); BUN 20 mg/dL (7-18); Bilirubin, Total 0.5 mg/dL (0.2-1.0); CO2 23.7 mmol/L (21.0-32.0); CREATININE 1.1 mg/dL (0.55-1.02); Calcium 9.8 mg/dL (8.5-10.1); Chloride 104 mmol/L (98-107); Estimated GFR 50.48 (mL/min/1.73m2); Glucose 106 mg/dL (74-106); NT-proBNP 411 pg/mL (<300); Potassium 3.8 mmol/L (3.5-5.1); Sodium 140 mmol/L (136-145); Total Protein 8.2 g/dL (6.4-8.2); Troponin I < 50 ng/L (< or =60)
[2023-09-23] MEDS: diphenhydrAMINE 25 MG CAP PO (19:35)
== END 2023-09-23 19:43 | disposition home or self-care (01) ==
PROVIDERS: Emergency Provider Emergency Medicine; PCP Family Medicine
DX: R06.09 Other forms of dyspnea (principal); F41.9 Anxiety disorder, unspecified; I10 Essential (primary) hypertension; E78.5 Hyperlipidemia, unspecified; Z86.73 Personal history of transient ischemic attack (TIA), and cerebral infarction without residual deficits; Z79.82 Long term (current) use of aspirin; Z79.02 Long term (current) use of antithrombotics/antiplatelets; Z87.891 Personal history of nicotine dependence
CPT/HCPCS: 80053; 93005; 99285; 71045; 83880; 84484; 85025; 93010; 99284

== ENCOUNTER 2023-10-07 13:46 | Emergency (ER) | payer MEDICARE, SELFPAY ==
[2023-10-07 13:45] VITALS: BP 140/109; PULSE 64; RESP 20; TEMP 37.1; O2SAT 99
[2023-10-07 13:50] VITALS: BP 129/74
--- NOTE | 2023-10-07 13:52 | W.ED.GENAD ---
HPI General Date/Time Provider Initiated Documentation: 10/07/23 13:49. HPI Narrative: 82-year-old female history of prior stroke presents after mechanical slip and fall backwards fell onto her buttock and back and hip, did hit the back of her head without loss of consciousness no nausea no vomiting, behaving normally. Given acetaminophen by EMS and route feeling better after meds and ice application. Related Data Home Medications Medication Instructions Recorded Confirmed sennosides 8.6 mg tablet (senna) 17.2 mg (2 x 8.6 mg) PO QHS #60 08/26/23 10/07/23 tabs atorvastatin 40 mg tablet 40 mg PO DAILY #90 tabs 09/08/23 10/07/23 clopidogrel 75 mg tablet 75 mg PO DAILY #90 tabs 09/08/23 10/07/23 lisinopril 40 mg tablet 40 mg PO DAILY #30 tabs 09/08/23 10/07/23 amlodipine 10 mg tablet 10 mg PO DAILY #90 tabs 09/12/23 10/07/23 aspirin 81 mg chewable tablet 81.0 mg PO DAILY #90 tabs 09/12/23 10/07/23 hydralazine 25 mg tablet 25 mg PO TID #90 tabs 09/15/23 10/07/23 docusate sodium 100 mg capsule 100 mg PO DAILY 09/23/23 10/07/23 (Colace) escitalopram oxalate 5 mg tablet 5 mg PO DAILY #30 tabs 09/24/23 10/07/23 trazodone 50 mg tablet See Rx Instructions PO QHS PRN 09/24/23 10/07/23 sleep #30 tabs Previous Rx's Medication Instructions Recorded sennosides 8.6 mg tablet (senna) 17.2 mg (2 x 8.6 mg) PO QHS #60 08/26/23 tabs atorvastatin 40 mg tablet 40 mg PO DAILY #90 tabs 09/08/23 clopidogrel 75 mg tablet 75 mg PO DAILY #90 tabs 09/08/23 lisinopril 40 mg tablet 40 mg PO DAILY #30 tabs 09/08/23 amlodipine 10 mg tablet 10 mg PO DAILY #90 tabs 09/12/23 aspirin 81 mg chewable tablet 81.0 mg PO DAILY #90 tabs 09/12/23 hydralazine 25 mg tablet 25 mg PO TID #90 tabs 09/15/23 escitalopram oxalate 5 mg tablet 5 mg PO DAILY #30 tabs 09/24/23 trazodone 50 mg tablet See Rx Instructions PO QHS PRN 09/24/23 sleep #30 tabs Allergies Allergy/AdvReac Type Severity Reaction Status Date / Time Penicillins Allergy Unknown Diarrhea Verified 10/07/23 13:50 General Stated Complaint: Orthopedic KARUNA: 3 Review of Systems Narrative: Review of Systems Constitutional: negative Eyes: negative ENT: negative Cardiovascular: negative Respiratory: negative Gastrointestinal: negative : negative Musculoskeletal: Hip pain Skin: negative Neurologic: negative Psych: negative Exam Narrative Exam Narrative: Physical Examination General: alert, awake, cooperative, resting comfortably, no acute distress HEENT: normocephalic, atraumatic; PERRL, EOM intact, conjunctiva normal; no nasal discharge; moist mucous membranes, oral and pharyngeal mucosa normal, tolerating secretions Neck: supple, trachea midline; full ROM Chest: normal to inspection Respiratory: normal respiratory effort, speaking in full sentences, clear to auscultation, no wheezing, rales or rhonchi Cardiac: regular rate, regular rhythm, S1S2 intact, no murmurs rubs or gallops GI: abdomen soft, non-tender, non-distended; no palpable mass or hepatosplenomegaly Back: No midline spinal tenderness step-off crepitus or deformity Skin: no lesions, rashes or trauma appreciated Neuro: AAOx3, normal speech, moving all extremities Extremities: Pelvis stable, range of motion right hip greater than range of motion of left, able to flex and extend bilateral knees dorsiflex and plantarflex bilateral feet, DP pulses intact bilaterally, warm well-perfused extremities sensate in nature, soft compartments; tenderness in the area of left superior iliac spine and left lateral hip Psych: Appropriate mood and affect Course Vital Signs Vital signs: Vital Signs Temperature 37.1 C 10/07/23 13:45 Pulse 64 10/07/23 13:45 Respiratory Rate 20 10/07/23 13:45 Blood Pressure 140/109 H 10/07/23 13:45 Pulse Oximetry 99 10/07/23 13:45 Temperature 37.1 C 10/07/23 13:45 Pulse 64 10/07/23 13:45 Respiratory Rate 20 10/07/23 13:45 Respiratory Effort Normal 10/07/23 13:49 Blood Pressure 129/74 10/07/23 13:50 Blood Pressure Position Sitting 10/07/23 13:45 Pulse Oximetry 99 10/07/23 13:45 Oxygen Delivery Method Room Air 10/07/23 13:45 Oxygen Flow Rate 0 10/07/23 13:45 Medical Decision Making 82-year-old female presents after mechanical slip and fall backwards from standing, landed on her buttocks and back as well as left hip, hit the back of her head without loss of conscious nausea vomiting or focal deficit, hemodynamically stable alert oriented interactive following commands, range of motion largely intact in all extremities, range of motion of left hip slightly decreased compared to right due to discomfort point tenderness over iliac crest left without evidence of pelvic instability; range of motion bilateral knees ankles feet intact DP pulse intact warm well-perfused, sensate extremities, consider hip contusion versus fracture versus dislocation low suspicion for spinal cord injury given mechanism and no midline spinal tenderness or deformity noted. Patient's pain well-controlled after receiving IV acetaminophen and route and ice pack applied. Disposition pending reassessment of symptoms after imaging results 15: 52 patient resting comfortably feeling much better. X-ray is clear. Patient ambulates with walker and predominantly uses a wheelchair at home. here to pick her up. 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 MOCA 08/2023. 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 tPA not used due to HTN. Left displaced femoral neck fracture (~05/2022) Right lumbar radiculopathy Tobacco use disorder quit 2004 Breast lump or mass (07/24/04) left breast lump--mammo and [place] [facility] [place]neg breast clinic 04/2005 Surgical History Status post hip hemiarthroplasty (06/20/22) S/p left posterior hip hemiarthroplasty S/P total left hip arthroplasty (06/20/22) H/O bilateral cataract extraction (~09/2016) Family History Mother , AGE 72 Osteoporosis Father , AGE 72 Diabetes Essential hypertension Heart disease Myocardial infarction Stroke Asthma Sister Heart disease Sister Essential hypertension Sister Essential hypertension Sister Essential hypertension Sister Essential hypertension Brother Essential hypertension Brother Essential hypertension Son No problems noted. Son Hyperlipidemia Son Asthma Daughter No problems noted. Brother No problems noted. 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 Pets and animals: Yes Pets and animals: cat(s) and dog(s) Sexually active: No Do you think of yourself as: straight/heterosexual Current gender identity: female What is your relationship status?: How often do you talk on the phone with friends or family?: once per week How often do you get together with friends or relatives?: decline to answer How often do you attend zoroastrian or judaism services?: decline to answer Do you belong to any clubs or organized social groups?: no Panel score (0-1 are the most socially isolated patients): 1 What type of physical activity do you participate in: walking Duration: < 15 minutes/day Frequency: 3-4 times per week Anna/Jain: Tenriism Special anna needs: No Seatbelt use: always Helmet use: Yes Helmet use: always Do you feel safe at home: Yes Do you feel safe in your relationship?: Yes Discharge Plan Disposition Patient Disposition: Home Condition: Improving Discharge Details Chief Complaint: Orthopedic Clinical Impression: Contusion Primary Care Provider: Darlene Toscano ED Provider: Harley Motta Home Meds and New Rx's Prescriptions: No Action escitalopram oxalate 5 mg tablet 5 mg PO DAILY Qty: 30 1RF trazodone 50 mg tablet See Rx Instructions PO QHS PRN (Reason: sleep) Qty: 30 2RF Rx Instructions: 25-50mg orally every day at bedtime PRN; aspirin 81 mg tablet,chewable 81.0 mg PO DAILY Qty: 90 3RF amlodipine 10 mg tablet 10 mg PO DAILY Qty: 90 3RF sennosides [senna] 8.6 mg tablet 17.2 mg PO QHS Qty: 60 5RF lisinopril 40 mg tablet 40 mg PO DAILY Qty: 30 2RF clopidogrel 75 mg tablet 75 mg PO DAILY Qty: 90 3RF Rx Instructions: for 70 days 08/16/ atorvastatin 40 mg tablet 40 mg PO DAILY Qty: 90 3RF hydralazine 25 mg tablet 25 mg PO TID Qty: 90 1RF docusate sodium [Colace] 100 mg capsule 100 mg PO DAILY Discharge Instructions Instructions: Contusion in Adults (ED) Additional Instructions: Please take medications as prescribed. Continue with ibuprofen and/or acetaminophen as needed for pain at home. Rest ice movement as tolerated. Follow-up closely with primary care physician. Please return to the emergency department for any worsening symptoms or poor healing
[2023-10-07] MEDS: Lidocaine 5% Patch 1 PATCH TP (14:44)
--- NOTE | 2023-10-07 15:21 | DI.RAD_ITS ---
Exam(s) XR PELVIS AP XR FEMUR LT XR FEMUR RT EXAM: XR PELVIS AP CLINICAL HISTORY: fall, left hip pain. TECHNIQUE: 2D digital imaging was performed. Single AP view the pelvis. AP and lateral views of lakeisha th femurs. COMPARISON: CR,XR XR PELVIS AP from 07/20/2023 CR XR FEMUR LT from 10/07/2023 CR XR FEMUR RT from 10/07/2023 FINDINGS: BONES: No acute fracture is present. No bony destructive lesion is seen. Left hip prosthesis appears unchanged. Bones appear osteopenic.. JOINTS: No dislocation present. Right hip joint space is maintained. SI joints and pubic symphysis a ppear intact. Degenerative changes at both knees. SOFT TISSUE: Vascular calcifications. IMPRESSION: No acute abnormality. DATA REPOSITORY: RADIATION DOSE DELIVERED:
[2023-10-07] MEDS: Ketorolac 15 MG/ML VIAL IVP (16:02)
== END 2023-10-07 16:12 | disposition home or self-care (01) ==
PROVIDERS: Emergency Provider Emergency Medicine; PCP Family Medicine
DX: S70.02XA Contusion of left hip, initial encounter (principal); I10 Essential (primary) hypertension; E78.5 Hyperlipidemia, unspecified; I69.354 Hemiplegia and hemiparesis following cerebral infarction affecting left non-dominant side; Z96.642 Presence of left artificial hip joint; Z79.02 Long term (current) use of antithrombotics/antiplatelets; Z79.82 Long term (current) use of aspirin; Z87.891 Personal history of nicotine dependence; W18.39XA Other fall on same level, initial encounter; Y93.01 Activity, walking, marching and hiking; Y92.89 Other specified places as the place of occurrence of the external cause
CPT/HCPCS: 73552; 96374; 99284; 72170; 99283; J1885

== ENCOUNTER 2023-12-24 14:38 | Outpatient (REF) | payer MEDICARE, SELFPAY | END 2023-12-24 14:39 | disposition home or self-care (01) | LOC: LBN 14:38 | PROVIDERS: PCP Family Medicine; Visit Provider Family Medicine | DX: L81.4 Other melanin hyperpigmentation (principal); D23.5 Other benign neoplasm of skin of trunk | CPT/HCPCS: 88305 ==

== ENCOUNTER 2024-01-07 09:48 | Outpatient (CLI) | payer MEDICARE, SELFPAY ==
[2024-01-07 10:08] LABS: Abs Immature Grans 0.01 10^3/uL (0.0-0.06); Absolute Basophil Count 0.06 10^3/uL (0.0-0.2); Absolute Eosinophil Count 0.51 10^3/uL (0.0-0.7); Absolute Monocyte Count 0.55 10^3/uL (0.1-0.8); Absolute Neutrophil Count 3.54 10^3/uL (1.2-6.7); Basophils % 1.1 %; HGB 13.6 g/dL (11.2-15.7); Immature Grans % 0.2 %; Lymphocytes % 17.6 %; MCH 29.9 pg (27.0-33.0); MCHC 31.6 % (32.0-36.0); MCV 95 fL (80-95); MPV 8.9 fL (8.0-11.0); Monocytes % 9.7 %; Neutrophils % 62.4 %; Platelet Count 361 10^3/uL (130-400); RBC 4.55 10^6/uL (3.93-5.22); RDW 13.9 % (11.7-14.6); RDW-SD 48.4 fL; WBC 5.67 10^3/uL (4.4-10.8)
[2024-01-07 10:52] LABS: TSH (W/Ref FT4) 3.01 uIU/mL (0.36-3.74)
== END 2024-01-07 09:49 | disposition home or self-care (01) ==
LOC: LBO 09:50
PROVIDERS: PCP Family Medicine; Visit Provider Family Medicine
DX: E03.9 Hypothyroidism, unspecified (principal); R53.83 Other fatigue
CPT/HCPCS: 36415; 84443; 85025

== ENCOUNTER 2024-05-25 14:34 | Emergency (ER) | payer MEDICARE, SELFPAY ==
[2024-05-25] VITALS (10 sets, daily range): BP systolic 111–159; BP diastolic 61–76; PULSE 45–66; RESP 12–20; TEMP 36.7; O2SAT 94–96
--- NOTE | 2024-05-25 14:45 | RT.EKG_ITS ---
APPROVED REPORT Exam: Resting ECG Reason for Exam: ana Patient Location: E HR:77 bpm ECG Measurements Heart Rate 77 AXIS NJ 173 P -4 QRSd 106 QRS -53 QT 426 T 3 QTc 430 Conclusion Sinus rhythm...normal P axis, V-rate 60- 99 Atrial premature complexes...SV complexes w/ short R-R intvls Left ventricular hypertrophy...multiple voltage criteria Inferior infarct, old...Q >35mS, II III aVF Anterior infarct, old...Q >40mS, abnormal ST-T, V2-V5
--- NOTE | 2024-05-25 15:00 | DI.RAD_ITS ---
Exam(s) XR TIB/FIB LT EXAM: XR TIB/FIB LT CLINICAL HISTORY: pain s/p fall. TECHNIQUE: 2D digital imaging was performed of the left tibia and fibula. Two images were obtained. AP and lateral views were obtained. COMPARISON: CR,XR XR FEMUR LT from 06/20/2022 CR XR FEMUR LT from 05/25/2024 FINDINGS: BONES: No acute fracture is present. The distal diaphysis of the left tibia has a somewhat mottled ap pearance. No periosteal reaction is seen. The cortex is intact. Visualized portion of knee and ank le joints are unremarkable. SOFT TISSUE: Vascular calcifications are present. IMPRESSION: 1. No acute fracture or dislocation. 2. Mottled appearance of the distal diaphysis of the left tibia. Underlying marrow abnormality shoul d be considered. Further evaluation with an MRI of the lower leg and/or bone scan is recommended. Unexpected findings DATA REPOSITORY: RADIATION DOSE DELIVERED:
--- NOTE | 2024-05-25 15:15 | DI.RAD_ITS ---
Exam(s) XR FEMUR LT EXAM: XR FEMUR LT CLINICAL HISTORY: pain s/p fall. TECHNIQUE: 2D digital imaging was performed of the left femur. Four images were obtained. AP and lat eral views were obtained. COMPARISON: CR XR FEMUR LT from 10/07/2023 CR XR PELVIS AP from 10/07/2023 FINDINGS: BONES: No acute fracture is present. No bony destructive lesion is seen. There is again seen a left h ip prosthesis. SOFT TISSUE: Vascular calcifications are present. IMPRESSION: No acute fracture or dislocation. DATA REPOSITORY: RADIATION DOSE DELIVERED:
--- NOTE | 2024-05-25 15:20 | ED.GENADUL_ITS ---
Discharge Plan Disposition Patient Disposition: Home Condition: Stable Discharge Details Clinical Impression: Fall, Contusion of left leg Primary Care Provider: Darlene Toscano ED Provider: Palmer Cason Home Meds and New Rx's Prescriptions: New levofloxacin 750 mg tablet 750 mg PO DAILY Qty: 5 0RF Continued aspirin 81 mg tablet,chewable 81.0 mg PO DAILY Qty: 90 3RF amlodipine 10 mg tablet 10 mg PO DAILY Qty: 90 3RF hydralazine 10 mg tablet 10 mg PO TID Qty: 90 3RF lisinopril 40 mg tablet 40 mg PO DAILY Qty: 90 3RF atorvastatin 40 mg tablet 40 mg PO DAILY Qty: 90 3RF clopidogrel 75 mg tablet 75 mg PO DAILY Qty: 90 3RF albuterol sulfate [Ventolin HFA] 90 mcg/actuation HFA aerosol inhaler 2 puff inhalation QID PRN (Reason: shortness of breath or wheezing) Qty: 8.5 3RF (DME) Aerochamber MV Spacer See Rx Instructions .Route Qty: 1 0RF Rx Instructions: As directed use with albuterol gabapentin 100 mg capsule 100 mg PO QHS Qty: 30 1RF escitalopram oxalate 5 mg tablet 2.5 mg PO DAILY Qty: 90 3RF Rx Instructions: Dose change. See task. 05/11/24. -hb triamcinolone acetonide 0.1 % cream 1 applic topical BID Qty: 80 1RF Rx Instructions: apply to perineal area but NOT in vagina docusate sodium [Colace] 100 mg capsule 100 mg PO DAILY Discharge Instructions Additional Instructions: The x-rays did not show any broken bones. She did have a abnormality of her distal lower leg that should have an outpatient MRI at some point if you want further workup for this. Let your primary care provider know about this finding when you follow-up with them next Follow-up with your primary care provider within 1 to 2 weeks especially if you are having continued pain or any new symptoms Return to the emergency department if you feel more ill or have severe worsening pain or high fevers HPI General Mode of arrival: EMS . Date/Time Provider Initiated Documentation: 05/25/24 14:49 . Limitations to Documentation: no limitations . Information obtained by: patient . History of Present Illness 83 year old F presents to the emergency department with the chief complaint of left leg pain, described as moderate, Quality is described as aching, Patient started experiencing this day(s) (1) and it has been constant. Rest improves symptom(s), Movement worsens symptoms . Patient notes no other symptoms.. Patient did receive the following treatments prior to arrival, none Related Data Home Medications ?Medication ?Instructions ?Recorded ?Confirmed amlodipine 10 mg tablet 10 mg PO DAILY #90 tabs 09/12/23 05/25/24 aspirin 81 mg chewable tablet 81.0 mg PO DAILY #90 tabs 09/12/23 05/25/24 docusate sodium 100 mg capsule 100 mg PO DAILY 09/23/23 05/25/24 (Colace) lisinopril 40 mg tablet 40 mg PO DAILY #90 tabs 12/08/23 05/25/24 atorvastatin 40 mg tablet 40 mg PO DAILY #90 tabs 03/11/24 05/25/24 hydralazine 10 mg tablet 10 mg PO TID #90 tabs 03/26/24 05/25/24 clopidogrel 75 mg tablet 75 mg PO DAILY #90 tabs 04/05/24 05/25/24 albuterol sulfate 90 mcg/actuation 2 puff inhalation QID PRN 04/20/24 05/25/24 aerosol inhaler (Ventolin HFA) shortness of breath or wheezing #8.5 grams inhalational spacing device #1 ea 04/20/24 05/25/24 (Aerochamber MV spacer) gabapentin 100 mg capsule 100 mg PO QHS #30 caps 04/22/24 05/25/24 escitalopram oxalate 5 mg tablet 2.5 mg (1/2 x 5 mg) PO DAILY #90 05/11/24 05/25/24 tabs triamcinolone acetonide 0.1 % 1 applic topical BID #80 grams 05/20/24 05/25/24 topical cream levofloxacin 750 mg tablet 750 mg PO DAILY #5 tabs 05/25/24 Previous Rx's ?Medication ?Instructions ?Recorded amlodipine 10 mg tablet 10 mg PO DAILY #90 tabs 09/12/23 aspirin 81 mg chewable tablet 81.0 mg PO DAILY #90 tabs 09/12/23 lisinopril 40 mg tablet 40 mg PO DAILY #90 tabs 12/08/23 atorvastatin 40 mg tablet 40 mg PO DAILY #90 tabs 07/18/24 hydralazine 10 mg tablet 10 mg PO TID #90 tabs 03/26/24 clopidogrel 75 mg tablet 75 mg PO DAILY #90 tabs 04/05/24 albuterol sulfate 90 mcg/actuation 2 puff inhalation QID PRN 04/20/24 aerosol inhaler (Ventolin HFA) shortness of breath or wheezing #8.5 grams inhalational spacing device #1 ea 04/20/24 (Aerochamber MV spacer) gabapentin 100 mg capsule 100 mg PO QHS #30 caps 04/22/24 escitalopram oxalate 5 mg tablet 2.5 mg (1/2 x 5 mg) PO DAILY #90 05/11/24 tabs triamcinolone acetonide 0.1 % 1 applic topical BID #80 grams 05/20/24 topical cream levofloxacin 750 mg tablet 750 mg PO DAILY #5 tabs 05/25/24 Allergies Allergy/AdvReac Type Severity Reaction Status Date / Time Penicillins Allergy Unknown Diarrhea Verified 05/25/24 14:31 General Stated Complaint: Orthopedic KARUNA: 3 Review of Systems All systems reviewed & are unremarkable except as noted in HPI and below Constitutional Constitutional: Denies chills, Denies fever(s) and Denies weakness Eyes Eyes: Denies loss of vision ENT Ears, Nose, Mouth, and Throat: Denies change in voice Cardiovascular Cardiovascular: Denies chest pain and Denies dyspnea Respiratory Respiratory: Denies cough and Denies dyspnea Gastrointestinal Gastrointestinal: Denies abdominal pain, Denies nausea and Denies vomiting Musculoskeletal Musculoskeletal: Reports arthralgias and Denies joint swelling Neurologic Neurologic: Denies loss of vision and Denies weakness Exam Const General: no acute distress Orientation: alert [facility] Head: normal to inspection Ears: external ears normal General nose exam: external nose normal Mouth: moist mucous membranes Eyes General: appearance normal, both eyes and all related structures Neck Neck: normal visual inspection and nontender Resp Effort & Inspection: normal respiratory effort and able to speak in complete sentences Auscultation: clear to auscultation bilaterally Cardio Rate: regular rate GI Palpation: soft and nontender Skin General skin exam: no rashes or lesions noted Neuro General: patient alert and patient oriented x3 Extrem General: normal to inspection and capillary refill normal Psych Mental Status: mental status grossly normal Course Vital Signs Vital signs: Vital Signs Temperature 36.7 C 05/25/24 14:32 Pulse 45 L 05/25/24 14:32 Respiratory Rate 12 05/25/24 14:32 Blood Pressure 159/76 H 05/25/24 14:32 Pulse Oximetry 94 05/25/24 14:32 Temperature 36.7 C 05/25/24 14:32 Temperature Source Oral 05/25/24 14:32 Pulse 45 L 05/25/24 14:32 Respiratory Rate 12 05/25/24 14:32 Respiratory Effort Normal, Non-Labored 05/25/24 14:44 Blood Pressure 159/76 H 05/25/24 14:32 Blood Pressure Position Sitting 05/25/24 14:32 Pulse Oximetry 94 05/25/24 14:32 Oxygen Delivery Method Room Air 05/25/24 14:32 Oxygen Flow Rate 0 05/25/24 14:32 Pain Level 2 05/25/24 14:32 Medical Decision Making 83-year-old female who lives with her and has a history of stroke which makes it difficult for her to get around the house and usually needs assistance from her , comes in after a fall last night. states that they have a 4 foot step that she uses to get into the bed and wall tightest on the bed she slipped and her leg went out and hit her left knee leg on the floor. She denies loss of consciousness and the also states she did not lose consciousness. She denies any preceding symptoms and states this was mechanical fall. She has no head pain, neck pain, back pain, abdominal or chest pain. She has tenderness in the mid left thigh, mid left tibia and also left lateral foot, no ankle tenderness. She has full range of motion of the joints though is having trouble bearing weight and getting out of the wheelchair took 2 nurses. She has intact sensation and pulses. I suspect sprains and contusions follow- up x-ray of the foot, tib-fib and femur and reassess. Will check basic labs as well. All imaging shows no acute findings, on the tib-fib there is mention of a mottled appearance of the distal tibia, recommend MRI at some point. Patient is stable and requesting discharge home. Her urine does show evidence of a UTI, levofloxacin ordered for this. She will follow-up with her PCP and advised of the x-ray finding if they want further workup she should talk to her PCP about having an MRI. Return precautions given Differential Diagnosis Differential Diagnosis: Fracture, contusion, sprain Medical Records Medical records reviewed: Yes I reviewed the patient's medical records. 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 MOCA 08/2023. 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 tPA not used due to HTN. Breast lump or mass (07/24/04) left breast lump--mammo and u/S at [facility] 04/2005 Left displaced femoral neck fracture (~05/2022) Right lumbar radiculopathy Tobacco use disorder quit 2004 Surgical History H/O bilateral cataract extraction (~09/2016) S/P total left hip arthroplasty (06/20/22) Status post hip hemiarthroplasty (06/20/22) S/p left posterior hip hemiarthroplasty Family History Mother , AGE 72 Osteoporosis Father , AGE 72 Diabetes Essential hypertension Heart disease Myocardial infarction Stroke Asthma Sister Heart disease Sister Essential hypertension Sister Essential hypertension Sister Essential hypertension Sister Essential hypertension Brother Essential hypertension Brother Essential hypertension Son No problems noted. Son Hyperlipidemia Son Asthma Daughter No problems noted. Brother No problems noted. 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 Pets and animals: Yes Pets and animals: cat(s) and dog(s) Sexually active: No Do you think of yourself as: straight/heterosexual Current gender identity: female What is your relationship status?: How often do you talk on the phone with friends or family?: once per week How often do you get together with friends or relatives?: decline to answer How often do you attend advent or restorationism services?: decline to answer Do you belong to any clubs or organized social groups?: no Panel score (0-1 are the most socially isolated patients): 1 What type of physical activity do you participate in: walking Duration: < 15 minutes/day Frequency: 3-4 times per week Anna/Bahai: Adventism Special anna needs: No Seatbelt use: always Helmet use: Yes Helmet use: always Do you feel safe at home: Yes Do you feel safe in your relationship?: Yes PAWSS Have you Been Recently Intoxicated or Drunk Within the Last 30 days?: No Have you Ever Experienced Previous Episodes of Alcohol Withdrawal?: No Have you ever Experienced Withdrawal Seizures?: No Have you ever Experienced Delirium Tremens(DT)s?: No Have you ever undergone Alcohol Rehabilitation Treatment (i.e, inpt ot outpatient treatment programs)?: No Have you ever Experienced Blackouts?: No Have you ever Combined Alcohol with other Downers within the last 90 days?: No Have you ever Combined Alcohol with any other Substance of Abuse during the last 90 days?: No Positive Blood Alcohol level on Presentation? [PCS.BAL]: No Evidence of Increased Autonomic Activity (i.e. HR>120, tremor, sweating, agitation, nausea)?: No Result: 0
[2024-05-25 15:39] LABS: Abs Immature Grans 0.03 10^3/uL (0.0-0.06); Absolute Basophil Count 0.03 10^3/uL (0.0-0.2); Absolute Eosinophil Count 0.24 10^3/uL (0.0-0.7); Absolute Lymphocyte Count 1.36 10^3/uL (1.2-3.4); Absolute Neutrophil Count 5.08 10^3/uL (1.2-6.7); Basophils % 0.4 %; Eosinophils % 3.1 %; HGB 14.9 g/dL (11.2-15.7); Immature Grans % 0.4 %; Lymphocytes % 17.8 %; MCH 30.7 pg (27.0-33.0); MCHC 33.1 % (32.0-36.0); MCV 93 fL (80-95); MPV 9.2 fL (8.0-11.0); Monocytes % 11.8 %; Neutrophils % 66.5 %; Platelet Count 360 10^3/uL (130-400); RBC 4.86 10^6/uL (3.93-5.22); RDW 13.3 % (11.7-14.6); RDW-SD 45.3 fL; WBC 7.64 10^3/uL (4.4-10.8)
[2024-05-25 15:48] LABS: ALT 22 U/L (14-59); AST 20 U/L (15-37); Albumin 3.1 g/dL (3.4-5.0); Alkaline Phosphatase 103 U/L (46-116); Anion Gap 9.9 mmol/L (3-11); BUN 19 mg/dL (7-18); Bilirubin, Total 0.92 mg/dL (0.2-1.0); CO2 25.1 mmol/L (21.0-32.0); CREATININE 1.3 mg/dL (0.55-1.02); Calcium 9.3 mg/dL (8.5-10.1); Chloride 102 mmol/L (98-107); Estimated GFR 41.06 (mL/min/1.73m2); Glucose 94 mg/dL (74-106); Potassium 3.6 mmol/L (3.5-5.1); Sodium 137 mmol/L (136-145); Total Protein 7.8 g/dL (6.4-8.2)
[2024-05-25] MEDS: Acetaminophen 500 MG TAB 1000 MG PO (16:30)
--- NOTE | 2024-05-25 16:55 | DI.RAD_ITS ---
Exam(s) XR FOOT LT COMPLETE EXAM: XR FOOT LT COMPLETE CLINICAL HISTORY: pain s/p fall. TECHNIQUE: 2D digital imaging was performed of the left foot. Three images were obtained. AP, obli que and lateral views were obtained. COMPARISON: No exams were available for comparison FINDINGS: BONES: No acute fracture is present. No bony destructive lesion is seen. JOINTS: No dislocation present. There are hammertoe deformities of the 2nd, 3rd and 4th toes. There are rosea in seen at the base of the proximal phalanx of the great toe which can be seen with an infl ammatory arthritis. SOFT TISSUE: There is mild soft tissue swelling of the foot. No soft tissue gas is seen. No radiopa que foreign bodies are present. IMPRESSION: No acute fracture or dislocation. DATA REPOSITORY: RADIATION DOSE DELIVERED:
[2024-05-25 17:19] LABS: Bilirubin Negative (Negative); Blood Negative (Negative); Clarity Sl Cloudy (Clear); Glucose Negative (Negative); Ketones Negative (Negative); Leukocyte Esterase Small (Negative); Nitrite Positive (Negative); Specific Gravity 1.015 (1.005-1.025); Urobilinogen 0.2 mg/dL (Up to 0.2); pH 5.5 (5-8)
[2024-05-25 17:41] LABS: Bacteria Many HPF (Negative); C & S Indicated? Yes; Casts Negative LPF (Negative); Crystals Negative HPF (Negative); Epithelial Cells Rare HPF (Negative); Mucus Negative (Negative); Other Cells Negative (Negative); RBC Negative HPF (0-2); WBC 20-50 HPF (0-5)
[2024-05-25] MEDS: levoFLOXacin 500 MG, levoFLOXacin 250 MG 750 MG PO (17:58)
== END 2024-05-25 18:28 | disposition home or self-care (01) ==
LOC: ER 18:00
PROVIDERS: Emergency Provider Emergency Medicine; PCP Family Medicine
DX: S80.12XA Contusion of left lower leg, initial encounter (principal); I10 Essential (primary) hypertension; E78.5 Hyperlipidemia, unspecified; I69.354 Hemiplegia and hemiparesis following cerebral infarction affecting left non-dominant side; Z79.01 Long term (current) use of anticoagulants; Z87.891 Personal history of nicotine dependence; W18.39XA Other fall on same level, initial encounter; Y93.01 Activity, walking, marching and hiking; Y92.018 Other place in single-family (private) house as the place of occurrence of the external cause
CPT/HCPCS: 73552; 80053; 87077; 93005; 99285; 73590; 73630; 81003; 81015; 85025; 87086; 87186; 93010; 99284

== ENCOUNTER 2024-08-05 09:45 | Inpatient (IN) | payer MEDICARE, SELFPAY ==
[2024-08-05] VITALS (60 sets, daily range): BP systolic 73–178; BP diastolic 36–71; PULSE 49–90; RESP 14–23; TEMP 36.1–37; O2SAT 93–100
--- NOTE | 2024-08-05 09:30 | RT.EKG_ITS ---
APPROVED REPORT Exam: Resting ECG Reason for Exam: altered mental status Patient Location: E HR:63 bpm ECG Measurements Heart Rate 63 AXIS HI 184 P 69 QRSd 106 QRS -47 QT 464 T -3 QTc 471 Conclusion Sinus rhythm, rate 63 No interval abnormalities PAC No STEMI Q waves III, aVF, V1-V3 Compared to priors, ectopy has decreased
--- NOTE | 2024-08-05 09:45 | DI.CT_ITS ---
Exam(s) CT BRAIN NECK CTA EXAM: CT BRAIN NECK CTA CLINICAL HISTORY: Worsening L. sided weakness, hx stroke. TECHNIQUE: Imaging Protocol: Axial CT angiography was performed with multi-slice acquisition and mu lti-planar and/or 3D reconstructions. CONTRAST MATERIAL: Intravenous: Omnipaque 350 Contrast volume:structured data in ml COMPARISON: CT CT BRAIN NECK CTA from 07/20/2023 FINDINGS: CTA Neck W: Aortic arch anatomy: The aortic arch anatomy is conventional. There is significant atherosclerotic i nvolvement the aortic arch. There is critical stenosis-possible occlusion of the left subclavian art rha proximal to the takeoff point of the left vertebral artery. Suspicious for subclavian steal. Un changed from previous study. Anterior circulation: There is moderate atherosclerotic involvement of the brachiocephalic trunk without critical stenosis and there is no significant stenosis in the right common carotid artery. There is again noted signif icant plaque in the proximal aspect of the left common carotid artery again noted with approximately 60 percent stenosis noted. There is also significant plaque more distally in the left common carotid artery with approximately 7 0 percent stenosis of this vessel just below the bifurcation. There is a high-grade stenosis in the proximal left ICA, approximately 80-90 percent. Above this level the left ICA in the upper left side of the neck is patent. Some plaque is noted at the right carotid bifurcation and proximal right ICA, approximately 30 percen t stenosis. Above this level the right ICA in the upper neck is patent. Posterior circulation: Both vertebral arteries originate in conventional fashion off of the subclavian arteries and there is no obvious stenosis at the origin of the vertebral arteries. Both vertebral arteries exhibit normal luminal diameters within the foramen transversarium. No evidence of intraluminal thrombus nor dissection. Both vertebral arteries contribute to the formation of the basilar artery at the skull base. CTA Brain W: Anterior circulation: Both internal carotid arteries are patent in the skull base-carotid canals as well as within the cave rnous sinuses. The supraclinoid aspects of the ICAs are patent. Right A1 segment is dominant and the anterior cereb ral arteries are patent. There is no evidence of aneurysm at the level of the anterior communicating artery. Both middle cerebral arteries are patent with no evidence of significant stenosis nor intraluminal th rombus. There also no aneurysms of these vessels. Posterior circulation: The basilar artery ascends in the midline. Distally it gives off patent bilateral superior cerebella r arteries. Above this level the basilar artery terminates as patent bilateral posterior cerebral arteries. There is no evidence of aneurysm at the tip of the basilar artery nor elsewhere in the [id number] is. CT BRAIN: There is no evidence of intracranial hemorrhage, mass effect, or shift of midline structures. There are no extra-axial fluid collections. Again noted are multiple lacunar infarcts in left basal gangli a, unchanged from June 2023. However, on today's study there is a new prominent lacunar infarct extending from the right basal ganglia up to the right periventricular white matter, not previously e vident in June 2023. No associated hemorrhage nor prominent mass effect. There is mild ex vacuo dilatation of the ipsilateral-right lateral ventricle now evident. No shift. Abundant bilateral pe riventricular hypodensity consistent with chronic small vessel disease again noted. There are no rin g enhancing lesions in the brain. There is no abnormal meningeal enhancement, focal nor diffuse. Nodule in the right thyroid lobe again noted. IMPRESSION: 1. There is severe atherosclerotic disease in the neck. There is moderate atherosclerotic involvemen t of both common iliac arteries below the level of the bifurcation. There is a stenosis in the dista l left common carotid artery and high-grade stenosis in the proximal left internal carotid artery, ap proximately 80-90 percent. Approximately 30 percent stenosis on the opposite-right side. 2. There is a critical stenosis or occlusion noted just beyond the origin of the left subclavian art rah off the aortic arch. This critical narrowing or occlusion is proximal to the takeoff point of th e left vertebral artery and this implies that there is no significant possibility of subclavian steal syndrome here. 3. Both vertebral arteries are patent without significant stenosis nor dissection. Please note that this type of study does not reveal the direction of flow in the vertebral arteries. 4. Patent intracranial arteries. 5. There is significant nonhemorrhagic infarct in the right basal ganglia and right periventricular w bernabe matter which was not evident on the prior study of 07/20/2023. 6. Multiple stable lacunar infarcts in the left basal ganglia again noted which are unchanged from . 7. No evidence of intracranial hemorrhage and no ring enhancing lesions in the brain. 8. Right thyroid lobe nodule again noted. This can undergo nonemergent ultrasound when clinically fe asible Report called by myself ER physician 08/05/2024 at 11:45 a.m. RADIATION DOSE DELIVERED: 2,050.46mGy.cm Total DLP DATA REPOSITORY: All CT scans at this facility are submitted to the National Radiology Data Registry (NRDR) Dose Index Registry (DIR) with the [employer] ([employer]). RADIATION OPTIMIZATION: All CT scans at this facility use at least one of these dose optimization te chniques: automated exposure control; mA and/or kV adjustment per patient size (includes targeted exa ms where dose is matched to clinical indication); or iterative reconstruction.
--- NOTE | 2024-08-05 09:58 | W.ED.GENAD ---
Discharge Plan Disposition Patient Disposition: Admit to [facility] Condition: Stable Discharge Details Chief Complaint: GenMedical Clinical Impression: CVA (cerebral vascular accident), Hyperlipidemia, Hemiplegia, post-stroke, Stenosis of left internal carotid artery, HTN (hypertension), Stenosis of left subclavian artery, Infiltrate of lower lobe of left lung present on imaging study Primary Care Provider: Darlene Toscano ED Provider: Carolee Rolle Home Meds and New Rx's Prescriptions: No Action aspirin 81 mg tablet,chewable 81.0 mg PO DAILY Qty: 90 3RF hydralazine 10 mg tablet 10 mg PO TID Qty: 90 3RF atorvastatin 40 mg tablet 40 mg PO DAILY Qty: 90 3RF clopidogrel 75 mg tablet 75 mg PO DAILY Qty: 90 3RF triamcinolone acetonide 0.1 % cream 1 applic topical BID Qty: 80 1RF Rx Instructions: apply to perineal area but NOT in vagina amlodipine 10 mg tablet 10 mg PO DAILY Qty: 90 3RF lisinopril 40 mg tablet 40 mg PO DAILY Qty: 90 3RF gabapentin 100 mg capsule 200 mg PO QHS PRN (Reason: anxiety) Qty: 180 1RF Rx Instructions: 06/16/24: Per task, pt advised to take 1-2 tabs PRN. -hb docusate sodium [Colace] 100 mg capsule 100 mg PO DAILY HPI General Mode of arrival: EMS. Date/Time Provider Initiated Documentation: 08/05/24 09:46. Limitations to Documentation: no limitations. Information obtained by: patient, family, EMS and old records reviewed. HPI Narrative: HPI: This is an 83-year-old female patient with a past medical history significant for stroke in 2022, complicated by left-sided hemiparesis, and history of hypertension, hyperlipidemia, and cognitive impairment who is presenting for evaluation with EMS due to general malaise. The patient's noted that last night around 5 or 6 PM she started to act a little more spacey than typical, did not seem interested in eating her dinner, he noted that she also forgot to take her home medications which is unlike her. He states that she was complaining that her left leg was more weak than typical, though she does have baseline significant weakness of her left sided body since her stroke. The patient has not sustained trauma or injury, has not had a fever though notes that she seems to be running hotter than typical at nighttime. She has had several weeks of some respiratory problems including a nonproductive cough. Prior to last night she was eating and drinking normally with no nausea or vomiting. She does not take blood thinning medications but does take dual antiplatelet therapy. Has a history of incontinence but no other urinary complaints. EMS noted the patient to be mildly hypotensive, for which they provided her with a 500 cc bolus of fluids. Her blood glucose was 140, and she did not require any additional interventions during transport to the hospital. Exam: Gen: awake and alert, in no apparent distress. Appears well nourished. HEENT: PERRL, EOMs full and without nystagmus. External ears and nose normal, mucous membranes moist. Neck: Supple, full range of motion, no observable masses Lungs: No increased work of breathing, lung sounds clear and equal bilaterally without wheezes, rhonchi, or rales. CV: Heart with regular rate and rhythm, no murmurs auscultated. Strong and symmetrical radial pulses. Abdomen: Soft, nondistended, non-tended to palpation. No rigidity, rebound tenderness, or guarding. MSK: No joint swelling, no redness. Full ROM without limitation, no external traumatic findings. Skin: No rashes or lesions to visualized skin. Normal color, warm, and dry. Neuro: Cranial nerves II-XII intact and symmetrical bilaterally. The patient has 4-5 strength in her left sided body, compared to 5 out of 5 strength in her right sided body, reported to be baseline per the patient and her . No sensory deficits. No pronator drift Psych: Appropriate for situation. MDM: This is a an 83-year-old female patient who is presenting for evaluation of general malaise and acute on chronic worsening of her left lower extremity weakness since 5 or 6 PM last night. My differential includes but is not limited to stroke, CVA, recrudescence of strokelike symptoms. Certainly considered absence seizure's, though the patient has no history of epilepsy and has not had any other seizure-like activity. Considered infections including urinary tract infections, pneumonia, viral upper respiratory infection. Considered metabolic and electrolyte derangements, anemia, kidney injury, liver disease. We will obtain a CTA of the head and neck to better characterize any abnormalities that might account for the patient's symptoms. I will also obtain laboratory studies to include CBC, CMP, magnesium, troponin, urinalysis, PT/INR, and a Fluvid. We will obtain an EKG and a chest x-ray. ED Course: I reviewed the patient's laboratory studies, which show a mild leukocytosis to 14 without anemia or thrombocytopenia. Chemistry panel demonstrates a slight elevation in her renal function compared to baseline with a BUN of 31 and a creatinine of 1.9. As the patient received IV fluids prehospital he, I held on further resuscitation for prerenal azotemia. No evidence for liver dysfunction, troponin was negative x 2 checks, urinalysis noninfectious. COVID and influenza test negative. Chest x-ray demonstrates a left lower lobe opacity. Though they have not noted any fevers, hypoxia, and my concern for acute pneumonia as the specific cause of her symptoms is slightly lower, recrudescence is on the differential and for this reason we did provide her with a dose of ceftriaxone and azithromycin. CTA of the head and neck was obtained, does show a subacute right basal ganglia stroke that is new from her imaging obtained 1 year ago. She also has evidence of old lacunar strokes, and critical stenosis of her left ICA, as well as her left subclavian with concern for subclavian steal. Teleneurology consultation was completed, and the teleneurologist feels that the patient, who is outside of the window for tPA, is unlikely to be a candidate for thrombectomy but recommended that we speak with interventional neurology given the time course of less than 24 hours. Additionally, they recommended increasing her aspirin to 325, admitting for MRI, echo and PT/OT. Interventional team reviewed the imaging and notes no large vessel occlusions that would make the patient a candidate for mechanical thrombectomy. I reached out to the hospitalist team, who is graciously accepted this patient for admission to their service for ongoing workup and management of her new stroke. The patient remained hemodynamically appropriate (I note that the prior low blood pressures taken in the left arm are likely due to the critical subclavian stenosis, manual blood pressures obtained in the right arm have been appropriate), and was transferred from our department without incident. Carolee Rolle MD Related Data Home Medications ?Medication ?Instructions ?Recorded ?Confirmed aspirin 81 mg chewable tablet 81.0 mg PO DAILY #90 tabs 09/12/23 08/05/24 docusate sodium 100 mg capsule 100 mg PO DAILY 09/23/23 08/05/24 (Colace) atorvastatin 40 mg tablet 40 mg PO DAILY #90 tabs 03/11/24 08/05/24 hydralazine 10 mg tablet 10 mg PO TID #90 tabs 03/26/24 08/05/24 clopidogrel 75 mg tablet 75 mg PO DAILY #90 tabs 04/05/24 08/05/24 triamcinolone acetonide 0.1 % 1 applic topical BID #80 grams 05/20/24 08/05/24 topical cream amlodipine 10 mg tablet 10 mg PO DAILY #90 tabs 05/27/24 08/05/24 lisinopril 40 mg tablet 40 mg PO DAILY #90 tabs 05/27/24 08/05/24 gabapentin 100 mg capsule 200 mg (2 x 100 mg) PO QHS PRN 08/02/24 08/05/24 anxiety #180 caps Previous Rx's ?Medication ?Instructions ?Recorded aspirin 81 mg chewable tablet 81.0 mg PO DAILY #90 tabs 09/12/23 atorvastatin 40 mg tablet 40 mg PO DAILY #90 tabs 03/11/24 hydralazine 10 mg tablet 10 mg PO TID #90 tabs 03/26/24 clopidogrel 75 mg tablet 75 mg PO DAILY #90 tabs 04/05/24 triamcinolone acetonide 0.1 % 1 applic topical BID #80 grams 05/20/24 topical cream amlodipine 10 mg tablet 10 mg PO DAILY #90 tabs 05/27/24 lisinopril 40 mg tablet 40 mg PO DAILY #90 tabs 05/27/24 gabapentin 100 mg capsule 200 mg (2 x 100 mg) PO QHS PRN 08/02/24 anxiety #180 caps Allergies Allergy/AdvReac Type Severity Reaction Status Date / Time Penicillins Allergy Unknown Diarrhea Verified 08/05/24 10:16 General Stated Complaint: GenMedical KARUNA: 2 Course Vital Signs Vital signs: Vital Signs Temperature 36.4 C L 08/05/24 09:44 Pulse 64 08/05/24 09:44 Respiratory Rate 18 08/05/24 09:44 Blood Pressure 73/43 L 08/05/24 09:44 Pulse Oximetry 98 08/05/24 09:44 Temperature 36.4 C L 08/05/24 09:44 Temperature Source Oral 08/05/24 09:44 Pulse 64 08/05/24 09:44 Respiratory Rate 23 08/05/24 09:56 Respiratory Effort Normal 08/05/24 09:56 Respiratory Depth Normal 08/05/24 09:56 Respiratory Pattern Normal 08/05/24 09:56 Blood Pressure 110/50 L 08/05/24 09:56 Blood Pressure Mean 70 08/05/24 09:56 Blood Pressure Position Supine 08/05/24 09:56 Pulse Oximetry 97 08/05/24 09:56 Oxygen Delivery Method Room Air 08/05/24 09:56 Oxygen Flow Rate 0 08/05/24 09:56 Medical Decision Making Quality:SDOH Health Related Social Needs: No Data to Display PFSH All Active Problems (Updated 08/05/24 @ 15:10 by Carolee Rolle MD) Infiltrate of lower lobe of left lung present on imaging study (Acute) Stenosis of left subclavian artery (Acute) CVA (cerebral vascular accident) (Chronic) 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 MOCA 08/2023. 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 tPA not used due to HTN. Breast lump or mass (07/24/04) left breast lump--mammo and u/S at [facility] [place]=neg breast clinic 04/2005 Left displaced femoral neck fracture (~05/2022) Right lumbar radiculopathy Tobacco use disorder quit 2004 Surgical History H/O bilateral cataract extraction (~09/2016) S/P total left hip arthroplasty (06/20/22) Status post hip hemiarthroplasty (06/20/22) S/p left posterior hip hemiarthroplasty Family History (Updated 06/01/24 @ 11:26 by Dee Nash RN) Mother , AGE 72 Osteoporosis Autoimmune neutropenia Father , AGE 72 Diabetes Essential hypertension Heart disease Myocardial infarction Stroke Asthma Sister Heart disease Sister Essential hypertension Sister Essential hypertension Sister Essential hypertension Sister Essential hypertension Brother Essential hypertension Brother Essential hypertension Son No problems noted. Son Hyperlipidemia Son Asthma Daughter No problems noted. Brother No problems noted. 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 Pets and animals: Yes Pets and animals: cat(s) and dog(s) Sexually active: No Do you think of yourself as: straight/heterosexual Current gender identity: female What is your relationship status?: How often do you talk on the phone with friends or family?: once per week How often do you get together with friends or relatives?: decline to answer How often do you attend mu-ism or muslim services?: decline to answer Do you belong to any clubs or organized social groups?: no Panel score (0-1 are the most socially isolated patients): 1 What type of physical activity do you participate in: walking Duration: < 15 minutes/day Frequency: 3-4 times per week [employer] Special anna needs: No Seatbelt use: always Helmet use: Yes Helmet use: always Do you feel safe at home: Yes Do you feel safe in your relationship?: Yes
[2024-08-05 10:19] LABS: Abs Immature Grans 0.06 10^3/uL (0.0-0.06); Absolute Eosinophil Count 0.01 10^3/uL (0.0-0.7); Absolute Monocyte Count 1.22 10^3/uL (0.1-0.8); Absolute Neutrophil Count 12.12 10^3/uL (1.2-6.7); Basophils % 0.3 %; Eosinophils % 0.1 %; HCT 39.8 % (36.0-46.0); Immature Grans % 0.4 %; Lymphocytes % 6.3 %; MCH 30.6 pg (27.0-33.0); MCHC 32.7 % (32.0-36.0); MCV 94 fL (80-95); MPV 9.2 fL (8.0-11.0); Monocytes % 8.5 %; Neutrophils % 84.4 %; Platelet Count 307 10^3/uL (130-400); RBC 4.25 10^6/uL (3.93-5.22); RDW-SD 47.9 fL; WBC 14.36 10^3/uL (4.4-10.8)
[2024-08-05 10:20] LABS: Absolute Basophil Count 0.04 10^3/uL (0.0-0.2)
[2024-08-05 10:39] LABS: COVID-19 PCR Negative (Negative); Influenza A PCR Negative (Negative); Influenza B PCR Negative (Negative); RSV PCR Negative (Negative)
[2024-08-05 10:40] LABS: Source Nasopharynx
[2024-08-05 10:44] LABS: ALT 14 U/L (14-59); AST 17 U/L (15-37); Albumin 2.7 g/dL (3.4-5.0); Alkaline Phosphatase 91 U/L (46-116); Anion Gap 12.7 mmol/L (3-11); BUN 31 mg/dL (7-18); Bilirubin, Total 0.94 mg/dL (0.2-1.0); CO2 22.3 mmol/L (21.0-32.0); CREATININE 1.9 mg/dL (0.55-1.02); Calcium 8.8 mg/dL (8.5-10.1); Chloride 108 mmol/L (98-107); Estimated GFR 26.04 (mL/min/1.73m2); Glucose 123 mg/dL (74-106); Magnesium 1.9 mg/dL (1.8-2.4); Potassium 4.4 mmol/L (3.5-5.1); Sodium 143 mmol/L (136-145); Total Protein 6.8 g/dL (6.4-8.2); Troponin I 41 ng/L (<or=51)
[2024-08-05] MEDS: Normal Saline - Diluent 50 ML VIAL IJ ×2 (10:51→11:02)
[2024-08-05] MEDS: Omnipaque 350 MG/ML 500 ML BTL-Imaging package IJ (10:52)
--- NOTE | 2024-08-05 11:06 | DI.RAD_ITS ---
Exam(s) XR CHEST 1V IN DI DEPT EXAM: XR CHEST 1V IN DI DEPT CLINICAL HISTORY: Several weeks of cough. TECHNIQUE: 2D digital imaging was performed. COMPARISON: CR,XR XR PORTABLE CHEST AP from 09/23/2023 FINDINGS: Single AP portable view. Heart size is upper normal. The mediastinum is not widened. Right lung is clear. There increased markings in left lower lobe retrocardiac region and lingula. N o pleural effusions. No pulmonary edema. IMPRESSION: Mild infiltrate left lower lobe. DATA REPOSITORY: RADIATION DOSE DELIVERED:
[2024-08-05 11:28] LABS: INR 1.1 (0.9-1.1); Prothrombin Time 11.3 sec (9.1-11.1)
[2024-08-05 11:38] LABS: Troponin I 41 ng/L (<or=51)
[2024-08-05 11:39] LABS: Bilirubin Small (Negative); Blood Negative (Negative); Clarity Clear (Clear); Glucose Negative (Negative); Ketones Trace mg/dL (Negative); Leukocyte Esterase Negative (Negative); Nitrite Negative (Negative); Urobilinogen 0.2 mg/dL (Up to 0.2)
[2024-08-05 11:51] LABS: Bacteria Few HPF (Negative); Crystals Negative HPF (Negative); Epithelial Cells Moderate HPF (Negative); Mucus Moderate (Negative); Other Cells Negative (Negative); RBC 0-2 HPF (0-2)
[2024-08-05 11:52] LABS: C & S Indicated? No; Casts 3-5 Hyaline LPF (Negative)
--- NOTE | 2024-08-05 13:13 | NUR.NOTE ---
Nursing Note: Patient's BP intermittently monitored via manual BP readings due to inaccuracy of automatic readings. Dr. Huang aware and okay with intermittent manual BP checks. Pt continues to be monitored on telemetry and SPO2 monitoring.
--- NOTE | 2024-08-05 13:15 | DI.MRI_ITS ---
Exam(s) MR BRAIN WO EXAM: MR BRAIN WO CLINICAL HISTORY: Hx R MCA, worsening L. sided weakness, LKW [id number] TECHNIQUE: Multiplanar multisequence MRI of the brain was performed. COMPARISON: CT CT BRAIN NECK CTA from 08/05/2024 FINDINGS: VENTRICLES AND EXTRA AXIAL SPACES: Mild ex vacuo dilatation of the right lateral ventricle. MIDLINE SHIFT: None. CEREBRAL PARENCHYMA: No focus of restricted diffusion to suggest acute infarct. No space-occupying le niru identified. Old infarcts are noted in the right frontal lobe, right basal ganglia extending cephalad adjacent to the right lateral ventricle. Several old lacunar infarcts are noted in the left basal ganglia. Mild to moderate atrophy consistent with the patient's age. Moderate scattered foci of high signal in th e white matter consistent with sequela of chronic microvascular disease. BRAINSTEM/CEREBELLUM: Normal. VISUALIZED PARANASAL SINUSES: Clear. MASTOIDS:Clear. Vasculature: Normal flow void. PITUITARY GLAND: Unremarkable. ORBITS: Unremarkable. IMPRESSION: Old bilateral basal ganglia lacunar infarcts. Additional old infarct in the right frontal and right periventricular region. No acute infarct or hemorrhage. DATA REPOSITORY:
[2024-08-05] MEDS: AZITHROMYCIN 500 MG in Normal Saline 250 ML 250 MG IVPB (13:40)
[2024-08-05] MEDS: cefTRIAXone 1 GM/50 ML BAG IVPB (13:41)
--- NOTE | 2024-08-05 14:40 | HPE_ITS ---
Date of service: 08/05/24 Time of Service: 14:40 Assessment and Plan Assessment and plan (1) CVA (cerebral vascular accident): Status: Chronic Assessment and plan: As per CT results MRI in AM Echocardiogram telemetry ASA 325 mg PO daily Lipitor 40 mg PO restarted Lipid panel hemoglobin A1C PT consult Palliative care consult (2) Infiltrate of lower lobe of left lung present on imaging study: Status: Acute Assessment and plan: As per CXR On Ceftriaxone and azithromycin IS (3) Stenosis of left subclavian artery: Status: Acute Assessment and plan: Outpatient f/u with vascular Carotid US scheduled at [facility] in 09/2024 (4) Stenosis of left internal carotid artery: Status: Chronic Assessment and plan: As above (5) Hyperlipidemia: Status: Chronic Assessment and plan: Report of held statin a few weeks prior to presentation; now with new stroke and artery stenosis Lipid panel pending On High-intensity statin now with Lipitor 40 mg daily, considering zetia if contraindicated or consult neuro or vascular for alternatives (6) HTN (hypertension): Status: Chronic Assessment and plan: Home antihypertensive on hold for permissive HTN VS Q4 call for SBP > 160-170 Was on amlodipine , hydralazine and lisinopril (7) On deep vein thrombosis (DVT) prophylaxis: Status: Acute Assessment and plan: On LMWH Discussed with Dr. Erickson History of Present Illness History of Present Illness Chief Complaint: Worsening left-sided weakness N arrative: This 83-year-old female patient with a past medical history of hyperlipidemia, left-sided hemiplegia status post stroke to the right MCA, stenosis of the left internal carotid artery, stenosis of the left subclavian artery, hypertension presented today to the ED at any [facility] for evaluation of increased left-sided hemiplegia symptoms and weakness with last well-known date as of 1800 last night. Workup in the ED was significant for WBC at 14, BUN and creatinine relatively coherent 31 and 1.9 with baseline around 1.3 and 20. Head and neck CTA showed a significant nonhemorrhagic infarct in the right basal ganglia and right periventricular white matter which was not evident on the prior study of 07/20/2023. Significant stenosis seen in the distal left common carotid artery and high-grade stenosis in the proximal left internal carotid artery, approximately 80-90 percent,critical stenosis or occlusion noted just beyond the origin of the left subclavian artery off the aortic ar no change seen in the multiple stable lacunar infarct in the left basal ganglia since there were noted in June 2023. Right thyroid lobe nodule again with recommndation for nonemergent ultrasound. Chest x-ray showed mild infiltrate to the left lower lobe pointing to pneumonia. [facility] teleneurology consultation was completed with recommendations for admission for MRI, aspirin increased to 325, echocardiogram, physical therapy occasional therapy. The patient was found to be outside of the window for tPA and not a candidate for thrombectomy. Interventional neurology consult determined that there was no large vessel occlusion that would make the patient a candidate for mechanical thrombectomy. However, neurovascular consult should be pursued for endarterectomy recommendations status post discharge; repeat carotid ultrasound scheduled for September 2024 at [facility]. The hospitalist was consulted and patient admitted to the medical surgical floor with telemetry for evaluation and management of subacute right basal ganglia stroke, JH on CKD, pneumonia. In the ED the patient was treated with IV fluids, intravenous ceftriaxone and azithromycin and ASA 325 mg. When met, the patient stated that she was full code despite previous COLST form completed in October [address] Rizo where she was a DNR/DNI. The patient denied fevers, chills, dizziness, headache, change in vision, chest pain, nausea, vomiting, diarrhea, abdominal pain, dysuria. Mention was made that the patient was on a statin after for stroke but was stopped due to increased sleepiness a few weeks prior to presentation. 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 MOCA 08/2023. 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 tPA not used due to HTN. Breast lump or mass (07/24/04) left breast lump--mammo and u/S at [facility]=neg breast clinic 04/2005 Left displaced femoral neck fracture (~05/2022) Right lumbar radiculopathy Tobacco use disorder quit 2004 Surgical History H/O bilateral cataract extraction (~09/2016) S/P total left hip arthroplasty (06/20/22) Status post hip hemiarthroplasty (06/20/22) S/p left posterior hip hemiarthroplasty Family History (Updated 06/01/24 @ 11:26 by Dee Nash RN) Mother , AGE 72 Osteoporosis Autoimmune neutropenia Father , AGE 72 Diabetes Essential hypertension Heart disease Myocardial infarction Stroke Asthma Sister Heart disease Sister Essential hypertension Sister Essential hypertension Sister Essential hypertension Sister Essential hypertension Brother Essential hypertension Brother Essential hypertension Son No problems noted. Son Hyperlipidemia Son Asthma Daughter No problems noted. Brother No problems noted. 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 Pets and animals: Yes Pets and animals: cat(s) and dog(s) Sexually active: No Do you think of yourself as: straight/heterosexual Current gender identity: female What is your relationship status?: How often do you talk on the phone with friends or family?: once per week How often do you get together with friends or relatives?: decline to answer How often do you attend mandaeism or religion services?: decline to answer Do you belong to any clubs or organized social groups?: no Panel score (0-1 are the most socially isolated patients): 1 What type of physical activity do you participate in: walking Duration: < 15 minutes/day Frequency: 3-4 times per week Anna/Scientology: Muslim Special anna needs: No Seatbelt use: always Helmet use: Yes Helmet use: always Do you feel safe at home: Yes Do you feel safe in your relationship?: Yes Meds Allergies and Home Medications Allergies Allergy/AdvReac Type Severity Reaction Status Date / Time Penicillins Allergy Unknown Diarrhea Verified 08/05/24 10:16 Home Medications ?Medication ?Instructions ?Recorded ?Confirmed ?Type aspirin 81 mg chewable tablet 81.0 mg PO DAILY #90 tabs 09/12/23 08/05/24 Rx docusate sodium 100 mg capsule 100 mg PO DAILY 09/23/23 08/05/24 History (Colace) atorvastatin 40 mg tablet 40 mg PO DAILY #90 tabs 03/11/24 08/05/24 Rx hydralazine 10 mg tablet 10 mg PO TID #90 tabs 03/26/24 08/05/24 Rx clopidogrel 75 mg tablet 75 mg PO DAILY #90 tabs 04/05/24 08/05/24 Rx triamcinolone acetonide 0.1 % 1 applic topical BID #80 grams 05/20/24 08/05/24 Rx topical cream amlodipine 10 mg tablet 10 mg PO DAILY #90 tabs 05/27/24 08/05/24 Rx lisinopril 40 mg tablet 40 mg PO DAILY #90 tabs 05/27/24 08/05/24 Rx gabapentin 100 mg capsule 200 mg PO HS PRN PRN anxiety 08/05/24 08/05/24 History Exam Narrative Exam Narrative: Constitutional Frail elderly female without acute distress, HENMT: Head is atraumatic, normocephalic, no lymphadenopathy. Facial structures with normal appearance w/o facial droop Eyes: Well aligned, intact ROM Neck: Normal ROM, no meningeal signs Neuro:alert and oriented to self, person, place, knows it is July. Without speech disturbance, positive left upper extremity weakness & ataxia; minimal left leg weakness; cranial nerve II to XII intact. Chest:Chest is symmetrical and normal appearance Resp: Normal respiratory pattern, speaks in full sentences, unlabored breathing, clear lung bilaterally with diminished LL Cardio: regular rhythm, S1, S2, no murmur, capillary refill<3 sec., bilateral radial and dorsalis pedis pulses are positive, palpable GI: Abdomen is not distended, soft and non tender, bowel sounds are present : Negative Costovertebral angle tenderness Extremities: strength 5/5 right side, 3/5 left arm, 4/5 left leg Psych: RASS 0, congruent mood and normal affect. Results Labs 08/05/24 10:10 08/05/24 10:10 Labs: Laboratory Results - last 24 hr 08/05/24 08/05/24 08/05/24 09:52 10:10 11:09 WBC 14.36 H RBC 4.25 Hgb 13.0 Hct 39.8 MCV 94 MCH 30.6 MCHC 32.7 RDW 14.0 Plt Count 307 MPV 9.2 Immature Gran % 0.4 Neutrophils % 84.4 Lymphocytes % 6.3 Monocytes % 8.5 Eosinophils % 0.1 Basophils % 0.3 Nucleated RBC % 0.0 Absolute Neutrophils 12.12 H Absolute Lymphocytes 0.90 L Absolute Monocytes 1.22 H Absolute Eosinophils 0.01 Absolute Basophils 0.04 PT Cancelled 11.3 H INR Cancelled 1.1 Sodium 143 Potassium 4.4 Chloride 108 H Carbon Dioxide 22.3 Anion Gap 12.7 H BUN 31 H Creatinine 1.9 H Est GFR (CKD-EPI 2020) 26.04 Glucose 123 H Calcium 8.8 Magnesium 1.9 Total Bilirubin 0.94 AST 17 ALT 14 Alkaline Phosphatase 91 Troponin I 41 41 Total Protein 6.8 Albumin 2.7 L Urine Color Urine Clarity Urine pH Ur Specific [place] Urine Protein Urine Ketones Urine Blood Urine Nitrite Urine Bilirubin Urine Urobilinogen Ur Leukocyte Esterase Urine RBC Urine WBC Ur Epithelial Cells Urine Crystals Urine Bacteria Urine Casts Urine Mucus Urine Other Ur Culture Indicated? Urine Glucose COVID-19 Source Nasopharynx SARS-CoV-2 (PCR) Negative Influenza Type A (PCR) Negative Influenza Type B (PCR) Negative RSV (PCR) Negative 08/05/24 08/05/24 11:27 12:55 WBC RBC Hgb Hct MCV MCH MCHC RDW Plt Count MPV Immature Gran % Neutrophils % Lymphocytes % Monocytes % Eosinophils % Basophils % Nucleated RBC % Absolute Neutrophils Absolute Lymphocytes Absolute Monocytes Absolute Eosinophils Absolute Basophils PT INR Sodium Potassium Chloride Carbon Dioxide Anion Gap BUN Creatinine Est GFR (CKD-EPI 2020) Glucose Calcium Magnesium Total Bilirubin AST ALT Alkaline Phosphatase Troponin I Cancelled Total Protein Albumin Urine Color Dark Yellow Urine Clarity Clear Urine pH 5.0 Ur Specific [place] 1.020 Urine Protein 30 H Urine Ketones Trace H Urine Blood Negative Urine Nitrite Negative Urine Bilirubin Small H Urine Urobilinogen 0.2 Ur Leukocyte Esterase Negative Urine RBC 0-2 Urine WBC 5-10 Ur Epithelial Cells Moderate Urine Crystals Negative Urine Bacteria Few Urine Casts 3-5 Hyaline Urine Mucus Moderate Urine Other Negative Ur Culture Indicated? No Urine Glucose Negative COVID-19 Source SARS-CoV-2 (PCR) Influenza Type A (PCR) Influenza Type B (PCR) RSV (PCR) Last Vital Signs Temp 36.5 C 08/05/24 13:31 Pulse 53 L 08/05/24 13:31 Resp 17 08/05/24 13:31 BP 118/50 L 08/05/24 13:59 Pulse Ox 97 08/05/24 13:31 PAWSS Have you Been Recently Intoxicated or Drunk Within the Last 30 days?: No Have you Ever Experienced Previous Episodes of Alcohol Withdrawal?: No Have you ever Experienced Withdrawal Seizures?: No Have you ever Experienced Delirium Tremens(DT)s?: No Have you ever undergone Alcohol Rehabilitation Treatment (i.e, inpt ot outpatient treatment programs)?: No Have you ever Experienced Blackouts?: No Have you ever Combined Alcohol with other Downers within the last 90 days?: No Have you ever Combined Alcohol with any other Substance of Abuse during the last 90 days?: No Positive Blood Alcohol level on Presentation? [PCS.BAL]: No Evidence of Increased Autonomic Activity (i.e. HR>120, tremor, sweating, agitation, nausea)?: No Result: 0 Time Spent Time spent with Patient: >75 minutes Time was spent: preparing to see the patient(eg.review tests), obtaining and/or reviewing separately otained hiistory, ordering medications,tests, procedures, referring, communicating with other health home care physical therapist, indepentently interpreting results, counseling the patient and care coordination
[2024-08-05] MEDS: Aspirin 325 MG TAB PO (14:44)
[2024-08-05] MEDS: Clopidogrel 75 MG TAB PO (14:44)
--- NOTE | 2024-08-05 15:35 | W.PC.ACHO ---
Registration Status: Primary Language: Preferred Language: ED Information & Data Chief Complaint GenMedical 08/05/24 10:32 Chief Complaint GenMedical 08/05/24 10:02 Triage Note Pt arrives via EMS d/t 08/05/24 09:44 general malaise which started yesterday. Pt's states pt seemed, spacy - missed her medications yesterday. 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 Medical / Surgical History (Last Reviewed 11/05/23 @ 09:50 by Betsy Waggoner RN) Acute right MCA stroke (06/2023) Left displaced femoral neck fracture (~05/2022) Right lumbar radiculopathy Tobacco use disorder Breast lump or mass (07/24/04) (Last Reviewed 11/05/23 @ 09:50 by Betsy Waggoner RN) Status post hip hemiarthroplasty (06/20/22) S/P total left hip arthroplasty (06/20/22) H/O bilateral cataract extraction (~09/2016) Most Recent Vital Signs Temperature 36.5 C 08/05/24 13:31 Temperature Source Oral 08/05/24 09:44 Pulse 53 L 08/05/24 13:31 Pulse 61 08/05/24 15:10 Respiratory Rate 18 08/05/24 15:10 Respiratory Effort Normal 08/05/24 10:32 Respiratory Depth Normal 08/05/24 09:56 Respiratory Pattern Normal 08/05/24 09:56 Blood Pressure 126/58 L 08/05/24 14:51 Blood Pressure Mean 80 08/05/24 14:51 Blood Pressure Position Supine 08/05/24 14:51 Pulse Oximetry 96 08/05/24 15:10 Oxygen Delivery Method Room Air 08/05/24 09:56 Oxygen Flow Rate 0 08/05/24 09:56 Pain Level 0 08/05/24 15:15 Allergies Penicillins Allergy (Unknown, Verified 08/05/24 10:16) Diarrhea Precautions Isolation Standard precaution 08/05/24 10:32 Active Medications Generic Name Dose Route Start Last Admin Trade Name Freq PRN Reason Stop Dose Admin Iohexol 500 ml 08/05/24 11:00 08/05/24 10:52 Omnipaque 350 Mg/Ml 500 Ml Btl-Imaging Package IJ 09/04/24 23:59 500 ml DIRECTED MARIE Administration Sodium Chloride 50 ml 08/05/24 11:00 08/05/24 11:02 Normal Saline - Diluent 50 Ml Vial IJ 50 ml .FOR DI USE MARIE Administration IV IV Catheter Type [Right Peripheral IV Antecubital] IV Catheter Type [Left Hand] Peripheral IV IV Catheter Gauge [Right 18 Antecubital] Diagnostics 08/05/24 08/05/24 08/05/24 Range/Units 12:55 11:27 11:09 WBC (4.4-10.8) 10^3/uL RBC (3.93-5.22) 10^6/uL Hgb (11.2-15.7) g/dL Hct (36.0-46.0) % MCV (80-95) fL MCH (27.0-33.0) pg MCHC (32.0-36.0) % RDW (11.7-14.6) % Plt Count (130-400) 10^3/uL MPV (8.0-11.0) fL Immature Gran % % Neutrophils % % Lymphocytes % % Monocytes % % Eosinophils % % Basophils % % Nucleated RBC % (0.0-0.3) % Absolute Neutrophils (1.2-6.7) 10^3/uL Absolute Lymphocytes (1.2-3.4) 10^3/uL Absolute Monocytes (0.1-0.8) 10^3/uL Absolute Eosinophils (0.0-0.7) 10^3/uL Absolute Basophils (0.0-0.2) 10^3/uL PT 11.3 H INR 1.1 Sodium (136-145) mmol/L Potassium (3.5-5.1) mmol/L Chloride (98-107) mmol/L Carbon Dioxide (21.0-32.0) mmol/L Anion Gap (3-11) mmol/L BUN (7-18) mg/dL Creatinine (0.55-1.02) mg/dL Est GFR (CKD-EPI 2020) (mL/min/1.73m2) Glucose (74-106) mg/dL Calcium (8.5-10.1) mg/dL Magnesium (1.8-2.4) mg/dL Total Bilirubin (0.2-1.0) mg/dL AST (15-37) U/L ALT (14-59) U/L Alkaline Phosphatase (46-116) U/L Troponin I Cancelled 41 (<or=51) ng/L Total Protein (6.4-8.2) g/dL Albumin (3.4-5.0) g/dL Urine Color Dark Yellow (Yellow) Urine Clarity Clear (Clear) Urine pH 5.0 (5-8) Ur Specific [place] 1.020 (1.005-1.025) Urine Protein 30 H (Neg-Trace) mg/dL Urine Ketones Trace H (Negative) mg/dL Urine Blood Negative (Negative) Urine Nitrite Negative (Negative) Urine Bilirubin Small H (Negative) Urine Urobilinogen 0.2 (Up to 0.2) mg/dL Ur Leukocyte Esterase Negative (Negative) Urine RBC 0-2 (0-2) HPF Urine WBC 5-10 (0-5) HPF Ur Epithelial Cells Moderate (Negative) HPF Urine Crystals Negative (Negative) HPF Urine Bacteria Few (Negative) HPF Urine Casts 3-5 Hyaline (Negative) LPF Urine Mucus Moderate (Negative) Urine Other Negative (Negative) Ur Culture Indicated? No Urine Glucose Negative (Negative) mg/dL COVID-19 Source SARS-CoV-2 (PCR) (Negative) Influenza Type A (PCR) (Negative) Influenza Type B (PCR) (Negative) RSV (PCR) (Negative) 08/05/24 08/05/24 Range/Units 10:10 09:52 WBC 14.36 H (4.4-10.8) 10^3/uL RBC 4.25 (3.93-5.22) 10^6/uL Hgb 13.0 (11.2-15.7) g/dL Hct 39.8 (36.0-46.0) % MCV 94 (80-95) fL MCH 30.6 (27.0-33.0) pg MCHC 32.7 (32.0-36.0) % RDW 14.0 (11.7-14.6) % Plt Count 307 (130-400) 10^3/uL MPV 9.2 (8.0-11.0) fL Immature Gran % 0.4 % Neutrophils % 84.4 % Lymphocytes % 6.3 % Monocytes % 8.5 % Eosinophils % 0.1 % Basophils % 0.3 % Nucleated RBC % 0.0 (0.0-0.3) % Absolute Neutrophils 12.12 H (1.2-6.7) 10^3/uL Absolute Lymphocytes 0.90 L (1.2-3.4) 10^3/uL Absolute Monocytes 1.22 H (0.1-0.8) 10^3/uL Absolute Eosinophils 0.01 (0.0-0.7) 10^3/uL Absolute Basophils 0.04 (0.0-0.2) 10^3/uL PT Cancelled INR Cancelled Sodium 143 (136-145) mmol/L Potassium 4.4 (3.5-5.1) mmol/L Chloride 108 H (98-107) mmol/L Carbon Dioxide 22.3 (21.0-32.0) mmol/L Anion Gap 12.7 H (3-11) mmol/L BUN 31 H (7-18) mg/dL Creatinine 1.9 H (0.55-1.02) mg/dL Est GFR (CKD-EPI 2020) 26.04 (mL/min/1.73m2) Glucose 123 H (74-106) mg/dL Calcium 8.8 (8.5-10.1) mg/dL Magnesium 1.9 (1.8-2.4) mg/dL Total Bilirubin 0.94 (0.2-1.0) mg/dL AST 17 (15-37) U/L ALT 14 (14-59) U/L Alkaline Phosphatase 91 (46-116) U/L Troponin I 41 (<or=51) ng/L Total Protein 6.8 (6.4-8.2) g/dL Albumin 2.7 L (3.4-5.0) g/dL Urine Color (Yellow) Urine Clarity (Clear) Urine pH (5-8) Ur Specific [place] (1.005-1.025) Urine Protein (Neg-Trace) mg/dL Urine Ketones (Negative) mg/dL Urine Blood (Negative) Urine Nitrite (Negative) Urine Bilirubin (Negative) Urine Urobilinogen (Up to 0.2) mg/dL Ur Leukocyte Esterase (Negative) Urine RBC (0-2) HPF Urine WBC (0-5) HPF Ur Epithelial Cells (Negative) HPF Urine Crystals (Negative) HPF Urine Bacteria (Negative) HPF Urine Casts (Negative) LPF Urine Mucus (Negative) Urine Other (Negative) Ur Culture Indicated? Urine Glucose (Negative) mg/dL COVID-19 Source Nasopharynx SARS-CoV-2 (PCR) Negative (Negative) Influenza Type A (PCR) Negative (Negative) Influenza Type B (PCR) Negative (Negative) RSV (PCR) Negative (Negative) Vddcy-ex-Edwr Documentation Fingerstick Glucose Start: 08/05/24 09:53 Freq: Status: Active Protocol: Activity Type Activity Date Activity User E-sign Co-sign Detail Recorded Client Recorded Date Recorded By Document 08/05/24 09:53 AP [id number] 08/05/24 09:53 AP Intake and Output - 24 Hour Total 08/05/24 09:42 thru 08/05/24 14:51 Intake Total 300 Balance 300 Weight 71.713 kg Intake: IV 300 Falls Risk Assessment History of Falls Previous History 08/05/24 10:38 Contributing Factors Confusion 08/05/24 10:38 Ambulatory Aids Uses ambulatory device + 08/05/24 10:38 Tubes/Lines With any additional score 08/05/24 10:38 Gait Evaluation No gait disturbance 08/05/24 10:38 Cognition Cognitive impairment 08/05/24 10:38 Fall Total Score 83 08/05/24 10:38 Level of Risk Maximum Risk 08/05/24 10:38 Notes 08/05/24 13:13 Nursing Notes by Nicolette Bhakta Nursing Note: Patient's BP intermittently monitored via manual BP readings due to inaccuracy of automatic readings. Dr. Huang aware and okay with intermittent manual BP checks. Pt continues to be monitored on telemetry and SPO2 monitoring. Initialized on 08/05/24 13:13 - END OF NOTE v v v v v v v v v Sending and/or Receiving Nurses: Please use comment section below to note any information pertinent to the patient hand-off not included above. Information / Comments: Report received from: Nicolette Lock ED RN. Report called at 15:15.
[2024-08-05] MEDS: diazePAM 2 MG TAB PO (16:09)
--- NOTE | 2024-08-05 16:17 | CHAPLAIN ---
I had a brief visit with Alma Rosa before she was going for an MRI. She said her was here earlier but has gone home. They live in [place]. I explained my role and offered support. I will continue to visit.
[2024-08-05] MEDS: Enoxaparin 30 MG/0.3 ML SYR SC (18:17)
[2024-08-05] MEDS: Normal Saline Flush 10 ML SYR IVP (20:00)
[2024-08-05] MEDS: Miconazole 2% Topical Powder 85 GM BTL TP (21:34)
[2024-08-05] MEDS: Atorvastatin 40 MG TAB PO (21:35)
[2024-08-05] MEDS: Acetaminophen 325 MG TAB 650 MG PO (22:50)
[2024-08-06] VITALS (10 sets, daily range): BP systolic 100–155; BP diastolic 52–93; PULSE 72–123; RESP 14–61; TEMP 36.7–38; O2SAT 92–97
[2024-08-06 06:50] LABS: Abs Immature Grans 0.05 10^3/uL (0.0-0.06); Absolute Basophil Count 0.08 10^3/uL (0.0-0.2); Absolute Eosinophil Count 0.08 10^3/uL (0.0-0.7); Absolute Lymphocyte Count 0.83 10^3/uL (1.2-3.4); Absolute Monocyte Count 1.08 10^3/uL (0.1-0.8); Basophils % 0.6 %; Eosinophils % 0.6 %; HCT 45.3 % (36.0-46.0); HGB 14.3 g/dL (11.2-15.7); Immature Grans % 0.4 %; Lymphocytes % 6.5 %; MCH 30.5 pg (27.0-33.0); MCHC 31.6 % (32.0-36.0); MCV 97 fL (80-95); Monocytes % 8.5 %; Neutrophils % 83.4 %; RBC 4.69 10^6/uL (3.93-5.22); RDW 14.3 % (11.7-14.6); RDW-SD 51.2 fL; WBC 12.74 10^3/uL (4.4-10.8)
[2024-08-06 06:54] LABS: Absolute Neutrophil Count 10.63 10^3/uL (1.2-6.7)
[2024-08-06 07:37] LABS: ALT 9 U/L (14-59); AST 17 U/L (15-37); Albumin 2.7 g/dL (3.4-5.0); Alkaline Phosphatase 99 U/L (46-116); BUN 29 mg/dL (7-18); Bilirubin, Total 0.66 mg/dL (0.2-1.0); CREATININE 1.6 mg/dL (0.55-1.02); Calcium 9.1 mg/dL (8.5-10.1); Chloride 107 mmol/L (98-107); Glucose 116 mg/dL (74-106); Potassium 4.2 mmol/L (3.5-5.1); Sodium 142 mmol/L (136-145); Total Protein 7.4 g/dL (6.4-8.2)
[2024-08-06 07:39] LABS: Calculated LDL 123 mg/dL (<100); Cholesterol 189 mg/dL (<200); HDL Cholesterol 47 mg/dL (40-60); Triglyceride 97 mg/dL (<150)
[2024-08-06] MEDS: Miconazole 2% Topical Powder 85 GM BTL TP ×2 (07:46→19:45)
[2024-08-06] MEDS: Normal Saline Flush 10 ML SYR IVP ×2 (07:47→19:45)
[2024-08-06 08:12] LABS: Hemoglobin A1C 5.7 % (<5.7)
--- NOTE | 2024-08-06 08:43 | INITIAL_ITS ---
Date of service: 08/06/24 Time of Service: 08:43 Care Management Initial Assmt Initial Assessment Reason for Hospitalization: CVA Functional Status/Living Situation Patient Presentation: Alma Rosa was lying in bed visiting with her Raheel when met with her. She was polite but did not fully engage in the conversation. Raheel was very helpful and was able to provide necessary information. Alma Rosa was admitted with a CVA. She had a similar episode last May (2022) and spent 3 weeks at [facility] before returning home. Raheel indicated that initially Alma Rosa did well but has been slowly deteriorating over the last few months, both in strength and cognition. He shared that she is unable to use the phone anymore and sleeps 12- 15 hours a day. She had been able to ambulate with a walker and transfer independently but right now is a max assist of 2. Stanley have 4 children, none of whom live locally. They are from [place]. and 2 of their children still live there. The other 2 live in [place] (only daughter) and [place]. Alma Rosa does not currently receive any community services and uses a walker for ambulation. 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 Supervisor, Groceries, Transportation and Other (ADLs - provides support) Physical Functioning/Mobility Assistive Device: cane and walker Advance Directives Advance Directives: Do you have an Advance Directive: Y 05/15/16 08:47 AD On File at [facility]: Y 10/08/16 19:33 Date Asked 08/27/23 03/26/24 16:07 AD Date Reviewed 08/05/24 08/05/24 19:04 COLST On File at [facility] Yes 01/07/24 09:49 COLST Date Scanned 11/05/23 01/07/24 09:49 Code Status Resuscitation Status Full Code Insurance Coverage/Financial Issues Insurance: /BS Medicare Advantage Care Team Visit Care Team Role Provider Type Darlene Toscano MD Primary Care Provider [facility] STAFF PHYSICIAN Dunia Turner Other Providers REG OCCUPATIONAL THERAPIST InPatient Esequiel Wyand Other Providers OTHER Carolee Rolle MD Emergency Provider [facility] STAFF PHYSICIAN Alexandre Erickson Admit Provider [facility] STAFF PHYSICIAN Attending Provider Discharge Potential Discharge Needs: PCP F/U Appt Anticipated Barriers to Discharge: None Identified Patient/Family Education Needs: Review discharge instructions, discuss Ask Me Three Transportation: Private vehicle Plan: Anticipate Alma Rosa will be transferred to an acute rehab or sub acute rehab for continued therapy prior to returning home. She will follow up with the facility providers and plan of care. Transportation will be determined by disposition. CM will follow and continue to assess for discharge needs. 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 MOCA 08/2023. 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 tPA not used due to HTN. Breast lump or mass (07/24/04) left breast lump--mammo and u/S at [facility]=neg breast clinic 04/2005 Left displaced femoral neck fracture (~05/2022) Right lumbar radiculopathy Tobacco use disorder quit 2004 Surgical History H/O bilateral cataract extraction (~09/2016) S/P total left hip arthroplasty (06/20/22) Status post hip hemiarthroplasty (06/20/22) S/p left posterior hip hemiarthroplasty Family History (Updated 06/01/24 @ 11:26 by Dee Nash RN) Mother , AGE 72 Osteoporosis Autoimmune neutropenia Father , AGE 72 Diabetes Essential hypertension Heart disease Myocardial infarction Stroke Asthma Sister Heart disease Sister Essential hypertension Sister Essential hypertension Sister Essential hypertension Sister Essential hypertension Brother Essential hypertension Brother Essential hypertension Son No problems noted. Son Hyperlipidemia Son Asthma Daughter No problems noted. Brother No problems noted. 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 Pets and animals: Yes Pets and animals: cat(s) and dog(s) Sexually active: No Do you think of yourself as: straight/heterosexual Current gender identity: female What is your relationship status?: How often do you talk on the phone with friends or family?: once per week How often do you get together with friends or relatives?: decline to answer How often do you attend rastafari or protestant services?: decline to answer Do you belong to any clubs or organized social groups?: no Panel score (0-1 are the most socially isolated patients): 1 What type of physical activity do you participate in: walking Duration: < 15 minutes/day Frequency: 3-4 times per week Anna/[employer]ist: [place] Special anna needs: No Seatbelt use: always Helmet use: Yes Helmet use: always Do you feel safe at home: Yes Do you feel safe in your relationship?: Yes SDOH(Care Management) Screening Will the Patient Participate in the Screening?: Unable to obtain Do you worry about having a steady place to live?: no In the past 12 months, have you had to go without electric, gas, oil or water in your home?: no Have you or anyone in your house had to go without enough food to eat?: no Has lack of transportation kept you from medical appointments or from doing things needed for daily living?: no Has anyone in your support network made you feel unsafe for any reason?: no
--- NOTE | 2024-08-06 09:45 | DI.US_ITS ---
APPROVED REPORT EXAM: Comprehensive 2D, Doppler, and color-flow Echocardiogram Patient Location: In-Patient Room/Bed: [address] Manne[address] Molder: Aston Cespedes RDCS (AE) Indications: CVA Other Information Study Quality: Fair Conclusion Concentric left ventricular hypertrophy. There is prominent disproportional upper septal thickening. EF is 60%. Wall motion is normal Normal right ventricular size and function Both atria are normal in size Aortic valve is sclerotic and probably trileaflet. There is mild aortic stenosis with a mean gradien t of 10 mmHg. Severe mitral annular calcification. There is systolic anterior motion of the mitral leaflets. Ther e is mild mitral regurgitation Estimated right ventricular systolic pressure is 30 mmHg Ascending aorta measures 3.6 cm Wall motion Left Ventricle The left ventricle is normal size. The left ventricular systolic function is normal. The left ventric ular ejection fraction is within the normal range. Moderate concentric left ventricular hypertrophy. There is normal LV segmental wall motion. There is no ventricular septal defect visualized. LVEF is 6 0%. Right Ventricle The right ventricle is normal size. The right ventricular systolic function is normal. Atria The left atrium size is normal. The right atrium size is normal. The interatrial septum is intact wit h no evidence for an atrial septal defect. Aortic Valve The Aortic valve is sclerotic. Aortic valve is probably trileaflet. Mild aortic stenosis. Mean gradie nt is 10 mmHg No aortic regurgitation is present. Mitral Valve Severe mitral annular calcification. Systolic anterior motion of the mitral valve is present. No evid ence of mitral valve stenosis. Mild mitral regurgitation. Tricuspid Valve The tricuspid valve is normal in structure. There is no tricuspid valve stenosis. Mild tricuspid regu rgitation. The RVSP is 30.3 mmHg. Pulmonic Valve The pulmonary valve is normal in structure. There is no pulmonic valvular stenosis. There is no pulmo fito valvular regurgitation. Great Vessels The aortic root is normal in size. The ascending aorta is moderately dilated. Aortic arch is not well visualized. IVC is normal in size and collapses >50% with inspiration. Pericardium There is no pericardial effusion. 2D Dimensions IVSD d PLAX 1.63 cm F: 0.6-1.0 Ao Root d 2.62 cm F: 2.7 - 3.3 LVPW d PLAX 1.60 cm F: 0.6 - 1.0 Ao Asc Diam d 3.82 cm F: 2.3 - 3.1 LVID d PLAX 3.92 cm F: 3.8 - 5.2 LVDs 2.74 cm F: 2.2 - 3.5 LV EF Teichholz 57.8 % FS 29.98 % LV EDV (Teich) 66.6 mL LV ESV (Teich) 28.1 mL Stroke Vol Index (Teich) 22.92 M-Mode TAPSE 2.47 cm (M/F) >1.7 Auto EF LV EDV A4C 108.2 mL LV EDV A2C 105.6 mL LV EDV BP 108.0 mL LV ESV A4C 45.9 mL LV ESV A2C 41.7 mL LV ESV BP 43.7 mL LVEF(%) A4C 57.5 % LVEF(%) A2C 60.5 % LVEF(%) BP 59.6 % LV SV A4C 62.3 ml LV SV A2C 63.9 ml LV SV BP 64.3 ml LV CO A4C 5.2 L/min LV CO A2C 5.2 L/min LV CO BP 5.2 L/min HR A4C 83.92 BPM HR A2C 81.63 BPM LV EDV Index (BP) LA Volume LA Length A4C 4.2 cm LA Length A2C 4.4 cm LA Area A4C s 16.56 cm2 LA Area A2C s 15.39 cm2 LA Vol A4C A-L 55.42 mL LA Vol A2C A-L 45.77 mL LA Vol Biplane A-L 51.5 mL LA Vol/BSA A4C A-L LA Vol/BSA A2C A-L LA Vol/BSA BP A-L 30.6 mL/m2 LA Vol A4C MOD 51.7 mL LA Vol A2C MOD 39.1 mL LA Vol BP MOD 45.8 mL RA Volume RA Area A4C 11.1 cm2 RA ESV A4C (A-L) 22.8mL RA Vol/BSA A4C A-L RA Length A4C 4.6 cm RA ESV A4C (MOD) 21.8mL LV Diastology MV E' medial 0.067 (>0.07 m/s) MV E Vmax 1.04 (0.4-1.3 m/s) MV E/E' MED 15.52 (<14) MV A Vmax 1.05 (0.4-1.3 m/s) MV E' lateral 0.075 (>0.1 m/s) E/A Ratio 1.0 MV E/E' LAT 13.77 (<14) MV E' Average 0.071 m/s MV E/E'(average) 14.59 Aortic Valve AoV Vmax 2.15 m/s LVOT Vmax 1.19 m/s AoV Peak Grad 18.6 mmHg LVOT Peak Grad 5.7 mmHg AoV Area (Vmax) 1.34 cm2 LVOT VTI 0.229 m AoV VTI 0.415 m LVOT Mean Grad 3.3 mmHg AoV Mean Mack. 1.56 m/s LVOT SV 55.62 mL AoV Mean Grad 10.4 mmHg LVOT Diam s 1.75 cm AoV Area (VTI) 1.34 cm2 AV Regurg Peak Gr. 18.56 mmHg Velocity Ratio 0.55 Mitral Valve MV DT 246 (160-240 msec) MV Vmax TIPS 1.04 m/s MV Mean Grad 1.3 (<2mmHg) MV VTI 0.348 m Pulmonary Valve PV Vmax 1.17 (0.5-1.5 m/s) RVOT Vmax 0.89 m/s PV Peak Grad 5.4 mmHg RVOT Peak Gr. 3.2 mmHg PV Mean Mack 0.79 m/s RVOT VTI 0.163 m PV Mean Grad 2.8 mmHg RVOT Mean Gr. 1.6 mmHg Tricuspid Valve RA Pressure 3.00 mmHg TR Vmax 2.61 m/s TR Peak Grad 27.3 mmHg RVSP (TR) 30.3 mmHg
--- NOTE | 2024-08-06 10:53 | PHA.REVIEW2 ---
Pharmacy Admission Review Admission Clinical Review Admission Pharmacy Review: On deep vein thrombosis (DVT) prophylaxis (Acute) Infiltrate of lower lobe of left lung present on imaging study (Acute) Stenosis of left subclavian artery (Acute) Penicillins Allergy (Unknown, Verified 08/05/24 10:16) Diarrhea Resuscitation Status DNR/DNI Height 5 ft 2 in Weight 67.358 kg Pharmacy Admission Review Renal Dosing Renal Dosing: BUN 29 mg/dL (7-18) H 08/06/24 06:49 Creatinine 1.6 mg/dL (0.55-1.02) H 08/06/24 06:49 Medications needing adjustments: Reviewed (CrCl 24.39 mL/min, BUN decreased from 31 and SCr decreased from 1.9) List of meds needing interventions: Current medications are okay Anticoagulation Anticoagulation: Hgb 14.3 g/dL (11.2-15.7) 08/06/24 05:35 Hct 45.3 % (36.0-46.0) 08/06/24 05:35 Plt Count 10^3/uL (130-400) 08/06/24 05:35 INR 1.1 (0.9-1.1) 08/05/24 11:09 Creatinine 1.6 mg/dL (0.55-1.02) H 08/06/24 06:49 DVT Prophylaxis: Reviewed Medications: Enoxaparin (30mg daily) Relevant Labs Relevant Labs: Sodium 142 mmol/L (136-145) 08/06/24 06:49 Potassium 4.2 mmol/L (3.5-5.1) 08/06/24 06:49 Chloride 107 mmol/L (98-107) 08/06/24 06:49 Magnesium 1.9 mg/dL (1.8-2.4) 08/05/24 10:10 Electrolytes, C-Reactive P, ESR: Reviewed Cardiac Review Cardiac Review: Troponin I Cancelled 08/05/24 12:55 Blood Pressure 155/65 0718 Blood Pressure 135/68 0400 Blood Pressure 100/63 0317 Blood Pressure 178/71 BP, HR, EF%: Reviewed (HR WNL) QTc Review QTc: Reviewed (471 from 08/05/24) IV to PO Switch IV Medications: Reviewed (azithromycin and ceftriaxone) Home Meds Home Med List reviewed: Intervened Relevent Home Meds Not ordered & why?: amlodipine (on hold - permissive HTN), hydralazine (on hold - permissive HTN), lisinopril (on hold - permissive HTN), clopidogrel and triamcinolone cream Reached out to provider to see if clopidogrel is being held. Waiting to hear back. Current Meds Current Medication Order Review: Intervened Comments: H+P states to give patient aspirin 325mg PO daily but there is no order. Spoke with provider today who is looking into it. Waiting to hear back. Pharmacy Antibiotic Review Relevant Labs: WBC 12.74 10^3/uL (4.4-10.8) H 08/06/24 05:35 Temperature 37.5 C Temperature 37.3 C Temperature 36.7 C Comments: Patient is on azithromycin and ceftriaxone, day 1, for pneumonia. WBC decreased from 14.36 and there are no cultures pending currently.
--- NOTE | 2024-08-06 11:11 | PT.INIE ---
PT Notes Visit Reasons: CVA Inpatient Physical Therapy Evaluation Date: 08/06/2024 Referring Doctor: Estephanie Cartagena NP PT Orders: PT CONSULT: Safety Consult for discharge Precautions: Fall Risk, Standard, Aspiration Risk Patient Profile/Admitting Diagnosis: Pt is an 83 yo female prefers to be called Alma Rosa presenting to ED with increased left sided weakness and known previos Right MCA CVA. Workup in the ED was significant for WBC at 14, BUN and creatinine relatively coherent 31 and 1.9 with baseline around 1.3 and 20. Head and neck CTA showed a significant nonhemorrhagic infarct in the right basal ganglia and right periventricular white matter which was not evident on the prior study of 07/20/2023. Significant stenosis seen in the distal left common carotid artery and high-grade stenosis in the proximal left internal carotid artery, approximately 80-90 percent,critical stenosis or occlusion noted just beyond the origin of the left subclavian artery off the aortic ar no change seen in the multiple stable lacunar infarct in the left basal ganglia since there were noted in June 2023. Right thyroid lobe nodule again with recommndation for nonemergent ultrasound. Chest x-ray showed mild infiltrate to the left lower lobe pointing to pneumonia. [facility] consultation was completed with recommendations for admission for MRI, aspirin increased to 325, echocardiogram, physical therapy occasional therapy. The patient was found to be outside of the window for tPA and not a candidate for thrombectomy. Interventional neurology consult determined that there was no large vessel occlusion that would make the patient a candidate for mechanical thrombectomy. However, neurovascular consult should be pursued for endarterectomy recommendations status post discharge; repeat carotid [place] [facility] The hospitalist was consulted and patient admitted to the medical surgical floor with telemetry for evaluation and management of subacute right basal ganglia stroke, JH on CKD, pneumonia. In the ED the patient was treated with IV fluids, intravenous ceftriaxone and azithromycin and ASA 325 mg. 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 MOCA 08/2023.Urinary incontinence as sequela of cerebrovascular accident (CVA) (Acute) Stenosis of left internal carotid artery (Chronic 07/2023) 80% on MRA post CVAHemiplegia, post-stroke (Acute 06/2023) left hemiparesisIncomplete right bundle branch block with left anterior fascicular block (Chronic) Arthritis (Chronic) HTN (hypertension) (Chronic) Hyperlipidemia (Chronic) Medical History 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 tPA not used due to HTN.Breast lump or mass (07/24/04) left breast lump[place]ammo and [place] [facility]2005 Left displaced femoral neck fracture (~05/2022) Right lumbar radiculopathy Tobacco use disorder quit 2004 Surgical History H/O bilateral cataract extraction (~09/2016) S/P total left hip arthroplasty (06/20/22) Status post hip hemiarthroplasty (06/20/22) S/p left posterior hip hemiarthroplasty Social History/Home Situation: Pt resides with her in single family home with ramp to enter through garage. assists with all care and provides transportation. Per pt has to step up onto a platform that is 4 high 16 wide and 4 feet long that is next to her bed to enable her to get into bed d/t the height of bed. Equipment Owned/DME: Ramp to enter home through the garage, FWW, commode over toilet with grab bar on the right, shower seat with 2 grab bars in shower and HHS Subjective: Pt reports she has pain in her left knee when she moves it. Her reports he is not sure if he caused the knee pain when he was helping her to get into bed at home the night prior to her coming to the hospital. He reports he had a very difficult time getting her in and almost didn't make it. Objective: General Observation: seated in chair with visiting. Telemetry in place. noted Left facial droop , dysarthria noted, Mental Status: Alert and oriented to person , place Pain: Left knee pain with WB and ROM Pt unable to use scale Vital Signs: monitored via telemetry throughout session ROM: Right Upper Extremity: WFL Left Upper Extremity: shoulder AAROM limited to 95 degrees flexion, abduction to 80 degrees, elbow extension limited by 10 degrees d/t bicep tone , supination limited by pronator teres tightness.finger IP and DIP 2-5digits limited by pain. Right Lower Extremity: WFL except ankle lacking 8 degrees Left Lower Extremity: hip WFL, knee 0-85 degrees PROM seated in chair. (once extensor tone reduced), ankle DF lacking 12 degrees Strength: Right Upper Extremity: grossly 3/5 Left Upper Extremity: pt utilizes flexor synergy pattern for elbow flexion. impaired grasp unable to perform flexion of IP and DIP and impaired thumb opposition and abduction Right Lower Extremity: Hip flexion:3 /5; hip abduction: 3- /5; hip extension: 3- /5; knee extension: 3 /5; knee flexion: 3 /5 ankle DF: 3 /5 ; ankle PF: 3 /5 Left Lower Extremity: pt utilizes flexor synergy pattern for hip flexion with ER and Abduction to gain knee flexion and DF. Sensation: Intact BUE and LE to light touch and deep pressure. coordination impaired ALESSIO LUE and LE impaired accuracy and speed Tone: extensor tone LLE and flexor tone LUE Bed Mobility/Transfers: supine to sit: min A of 1 sit to supine Max A of 1 sit to stand Mod A of 2 stand to sit Mod A of 2 chair to bed : Max A of 2 with FWW; assist to position LLE and continuous cues for upright trunk Gait: Unable to advance LE Balance: Static Sitting:Good Dynamic Sitting: Fair + Static Standing:Poor - retropulsion difficulty achieving upright posture d/t PF contractures. Dynamic Standing: unable Special Tests: Mobility Limitations Standardized Measure [facility] AM-PAC 6 clicks Basic Mobility Inpatient Short Form: Raw Score: 10 CMS Score: 76.75% Informed Consent/Education: Patient instructed in purpose of PT consult and plan of care. Assessment: Alma Rosa demonstrates significant decrease in LUE and LLE motor control, coordination and strength. Pt also demonstrates significant decline in functional moility as stated. Due to severity of B ankle contractures pt may benefit from B heel lifts to promote anterior weight shift and reduce retropulsion in standing. Patient is a 83 year old female referred to physical therapy services with the diagnosis of CVA. Patient presents with clinical signs and symptoms consistent with admitting diagnosis, as demonstrated by the following impairment level findings: 1. impaired strength/ motor control LUE ,LLE and trunk major muscle groups 2. impaired sitting/standing balance 3. impaired sitting and standing activity tolerance 4. Limitation of joint ROM Left knee, B ankles and left UE. 5. Pain in left knee Impairments are contributing to the following functional limitations: 1.AMPAC score of 76.75% 2. Decline in bed mobility skills 3. decline in transfer skills 4. Inability to ambulate without assistance and AD 5. Increased time to complete ADL/moblity tasks 6. Increased risk for falls Patient is assessed as a Moderate 14237 complexity based on the following: History: Pt is 83 yo female with past medical history as indicated above. Examination: Demonstrates impairments in strength, motor control LUE/LLE, impaired ROM, impaired balance and mobility level with underlying impairments and functional limitations as stated above. Presentation: evolving Decision Making: moderate Goals: Goals X1 week 1. Supine-Sit min A 2. Sit-Supine Min A 3. Sit-Stand Mod A of 1 4. Stand-Sit Mod A of 1 5. Bed-Chair Mod A of 1 with LRD 6. Chair-Bed Mod A of 1 with LRD 7. amb 10 feet x 2 with LRD Mod A of 1 and wheelchair follow for safety Plan of Care/Treatment Plan: 1-2x/day, 7 days/week x 1 week for global strengthening, transfers, ambulation, pain management and balance facilitation Plan of care has been reviewed with the WOOD CASKET ASSEMBLER providing the service under Physical Therapy direction. Initiate Physical Therapy intervention for strengthening, bed mobility, transfers, gait, stairs, balance training, use of assistive device. DISCHARGE RECOMMENDATIONS: [] Home with no services [] [] Home with services [specify] [] Home with outpatient PT [] [X] Acute Rehab facility vs short term SNF for continued rehabilitation for CVA [] Music Professor Care [] [] SNF versus LTC based on ability to participate and progress [] TREATMENT CODE/TIME: 73175, 42589 / [id number], [id number] Michelle Ramírez PT [facility] Please sign an return this page within 30 days if you agree with the above POC. Thank you! Physician Signature Date [facility]
[2024-08-06] MEDS: Aspirin 325 MG TAB PO (11:24)
[2024-08-06] MEDS: Acetaminophen 325 MG TAB 650 MG PO (11:37)
--- NOTE | 2024-08-06 12:25 | NUR.NOTE ---
Nursing Note: chart accessed for ER documentation review for care management questions.
[2024-08-06] MEDS: cefTRIAXone 1 GM/50 ML BAG IVPB (14:19)
--- NOTE | 2024-08-06 14:26 | W.PM.PROGNOT ---
Date of Service Date of service: 08/06/24 Time of Service: 14:26 Assessment and Plan Assessment and plan (1) CVA (cerebral vascular accident): Status: Chronic Assessment and plan: MRI - nothing acute Echocardiogram - 60%EF, no WMA telemetry ASA 325 mg PO daily Lipitor 40 mg PO restarted Lipid panel - LDL 123, Total cholesterol 189, HDL 47, triglycerides 97 hemoglobin A1C 5.7 PT consult Palliative care consult (2) Infiltrate of lower lobe of left lung present on imaging study: Status: Acute Assessment and plan: As per CXR On Ceftriaxone and azithromycin IS (3) Stenosis of left subclavian artery: Status: Acute Assessment and plan: Outpatient f/u with vascular Carotid US scheduled at [facility] [place] 09/2024 (4) Stenosis of left internal carotid artery: Status: Chronic Assessment and plan: As above (5) Hyperlipidemia: Status: Chronic Assessment and plan: See above (6) HTN (hypertension): Status: Chronic Assessment and plan: Home antihypertensive on hold for permissive HTN VS Q4 call for SBP > 160-170 Was on amlodipine , hydralazine and lisinopril (7) On deep vein thrombosis (DVT) prophylaxis: Status: Acute Assessment and plan: On LMWH Discussed with Dr. Erickson Subjective Subjective Patient reports: no new complaints, tolerating liquids well and afebrile; denies diarrhea, nausea or vomiting Interval history since last seen: Patient is semi fowlers in bed, at bedside. Exam Const General: no acute distress Orientation: alert HENTN Head: normal to inspection Ears: external ears normal General nose exam: external nose normal Mouth: moist mucous membranes Eyes General: appearance normal, both eyes and all related structures Neck Neck: normal visual inspection and nontender Resp Effort & Inspection: normal respiratory effort and able to speak in complete sentences Auscultation: clear to auscultation bilaterally Cardio Rate: regular rate GI Palpation: soft and nontender Skin General skin exam: no rashes or lesions noted Neuro General: patient alert and patient oriented x3 Extrem General: normal to inspection and capillary refill normal Psych Mental Status: mental status grossly normal Objective Last Vital Signs Temp 36.9 C 08/06/24 12:49 Pulse 85 08/06/24 11:32 Resp 16 08/06/24 11:32 BP 150/75 H 08/06/24 11:32 Pulse Ox 95 08/06/24 11:32 Laboratory Results - last 24 hr 08/06/24 08/06/24 08/06/24 05:35 06:20 06:49 WBC 12.74 H RBC 4.69 Hgb 14.3 Hct 45.3 MCV 97 H MCH 30.5 MCHC 31.6 L RDW 14.3 Plt Count MPV Immature Gran % 0.4 Neutrophils % 83.4 Lymphocytes % 6.5 Monocytes % 8.5 Eosinophils % 0.6 Basophils % 0.6 Nucleated RBC % 0.0 Absolute Neutrophils 10.63 H Absolute Lymphocytes 0.83 L Absolute Monocytes 1.08 H Absolute Eosinophils 0.08 Absolute Basophils 0.08 Sodium 142 Potassium 4.2 Chloride 107 Carbon Dioxide 22.0 Anion Gap 13.0 H BUN 29 H Creatinine 1.6 H Est GFR (CKD-EPI 2020) 32.00 Glucose 116 H Hemoglobin A1c Cancelled Calcium 9.1 Total Bilirubin 0.66 AST 17 ALT 9 L Alkaline Phosphatase 99 Total Protein 7.4 Albumin 2.7 L Triglycerides 97 Total Cholesterol 189 LDL Cholesterol, Calc 123 H HDL Cholesterol 47 08/06/24 07:50 WBC RBC Hgb Hct MCV MCH MCHC RDW Plt Count MPV Immature Gran % Neutrophils % Lymphocytes % Monocytes % Eosinophils % Basophils % Nucleated RBC % Absolute Neutrophils Absolute Lymphocytes Absolute Monocytes Absolute Eosinophils Absolute Basophils Sodium Potassium Chloride Carbon Dioxide Anion Gap BUN Creatinine Est GFR (CKD-EPI 2020) Glucose Hemoglobin A1c 5.7 Calcium Total Bilirubin AST ALT Alkaline Phosphatase Total Protein Albumin Triglycerides Total Cholesterol LDL Cholesterol, Calc HDL Cholesterol PAWSS Have you Been Recently Intoxicated or Drunk Within the Last 30 days?: No Have you Ever Experienced Previous Episodes of Alcohol Withdrawal?: No Have you ever Experienced Withdrawal Seizures?: No Have you ever Experienced Delirium Tremens(DT)s?: No Have you ever undergone Alcohol Rehabilitation Treatment (i.e, inpt ot outpatient treatment programs)?: No Have you ever Experienced Blackouts?: No Have you ever Combined Alcohol with other Downers within the last 90 days?: No Have you ever Combined Alcohol with any other Substance of Abuse during the last 90 days?: No Positive Blood Alcohol level on Presentation? [PCS.BAL]: No Evidence of Increased Autonomic Activity (i.e. HR>120, tremor, sweating, agitation, nausea)?: No Result: 0 Time Spent with Patient Time Spent with Patient: 25-34 minutes Time was spent: preparing to see the patient(eg.review tests), ordering medications,tests, procedures, referring, communicating with other health women's health care nurse practitioner, indepentently interpreting results, counseling the patient and care coordination
--- NOTE | 2024-08-06 15:26 | PT.INTREAT ---
PT Notes Visit Reasons: CVA Date: 08/06/2024 PRECAUTIONS: Fall Risk, Standard, Aspiration Risk SUBJECTIVE: Patient in bed when approached for therapy this afternoon, pt significant other was present in the room visiting with patient, patient agreed to participating with therapy session. OBJECTIVE: ? PAIN: Denies VITALS: closely monitored by nursing ? Therapeutic Activities 96931: Direct one-on-one instruction in dynamic activities to improve functional performance. ?? BED MOBILITY/TRANSFERS? Rolling L/R: min A Supine-sit: ?min A ? Sit-supine: ? min A? Sit-stand: ? min A? Stand-sit: ??min A ? Bed-Chair:? ?min A ? Chair-bed: min A Provided skilled cues and instruction on performance and technique throughout. Gait Training 69404: Direct one-on-one instruction and skilled instruction in: Employing an assistive device Modified weight-bearing status Movement sequencing Turning and movement with proper form Provided verbal cues for equipment management and technique Provided instruction in gait pattern Patient education regarding pacing and breathing techniques to maximize activity tolerance? GAIT? Assistive Device: ?? ?FWW ? Weight bearing: FWB Assist: ?min A? Distance:?? 5', 10', 15'? Deviation: decreased step length and step height, appears unstable requiring Close contact guarding for safety? Neuromuscular Re-education 87220: Activities that facilitate re-education of movement balance, posture, coordination, and proprioception or kinesthetic sense, requiring skilled tactile and verbal cues Exercises/techniques: Static standing, standing multidirectional weight shifting, sitting on the EOB without back support for static seated challenge, bed mobility with tactile cue for BLE, bridging and upward movement in bed to conclude session??? ASSESSMENT:?Pt initially hesitated to participate but was able to get redirected after a little bit of encouragement. PLAN: Continue with balance training, global strengthening and general conditioning for improved safety, mobility and activity tolerance until pt is ready for DC. TREATMENT CODE/TIME: [id number], [id number] 40mins (1:25-2:05pm)
[2024-08-06] MEDS: AZITHROMYCIN 500 MG in Normal Saline 250 ML 250 MG IVPB (16:17)
--- NOTE | 2024-08-06 16:18 | PCNE_ITS ---
Date of service: 08/06/24 Time of Service: 16:22 History of Present Illness Narrative: Alma Rosa was seen in her hospital room. She was alone at the time of the visit. She was sitting up in bed, watching TV. She was alert. She was able to tell me that it is July and that is the next holiday. She thought it was 2024 (almost). She knew she was in the hospital in [facility]. She said she was there because she woke up and couldn't talk. She was reminded that she had a CVA, she agreed. She is open to going to rehab. Her ultimate goal is to go home. Palliative was consulted because she has a COLST that was completed in 10/2023 that states DNR/DNI, however, on admission she said she wanted to be FULL CODE. Palliative is asked to clarify this. Reviewed CODE status with her. She seemed vague. She stated she wanted to keep it DNR/DNI but also stated she did not know. I asked her if I should talk to Raheel ( and health care agent) and she said, yes. Phone call to her , Raheel: Raheel states that they have both been clear that they do not want to be on a ventilator. He feels the confusion came when she was asked if she would want them to restart her heart if it stops when she came into the hospital. He does not think she fully understood. He believes she would want the COLST to be honored. He reports that she has had a steady decline over the last year (since first stroke). He is hoping that she will be able to go to rehab and then get back home. He was not sure what palliative could offer. Reviewed what we offer and he is interested in f/u either at rehab or when she gets home, depending on where she is placed. Staff report that she was a 2 max assist OOB to chair this morning with PT but this afternoon she was able to take a couple of steps with assistance and walker. Assessment and Plan Assessment and plan (1) CVA (cerebral vascular accident): Status: Chronic (2) Infiltrate of lower lobe of left lung present on imaging study: Status: Acute (3) Stenosis of left subclavian artery: Status: Acute (4) Stenosis of left internal carotid artery: Status: Chronic (5) Hyperlipidemia: Status: Chronic (6) HTN (hypertension): Status: Chronic (7) Palliative care patient: Status: Acute Assessment and plan: Palliative was consulted to clarify CODE status. Alma Rosa has a COLST that states DNR/DNI. There was some question on admission that she may want to be FULL CODE. Discussed this with Alma Rosa and her , Raheel (also HCA). All parties agree that she wants to remain DNR/DNI as per COLST. No change to CODE status. Her was unclear what Palliative can offer so this was reviewed. He is interested in Palliative f/u after discharge. Review of Systems Narrative: Per HPI. Denies pain. feeling better than when she came in. 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 MOCA 08/2023. 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 tPA not used due to HTN. Left displaced femoral neck fracture (~05/2022) Right lumbar radiculopathy Tobacco use disorder quit 2004 Breast lump or mass (07/24/04) left breast lump--mammo and [facility] 04/2005 Surgical History Status post hip hemiarthroplasty (06/20/22) S/p left posterior hip hemiarthroplasty S/P total left hip arthroplasty (06/20/22) H/O bilateral cataract extraction (~09/2016) Family History Mother , AGE 72 Osteoporosis Autoimmune neutropenia Father , AGE 72 Diabetes Essential hypertension Heart disease Myocardial infarction Stroke Asthma Sister Heart disease Sister Essential hypertension Sister Essential hypertension Sister Essential hypertension Sister Essential hypertension Brother Essential hypertension Brother Essential hypertension Son No problems noted. Son Hyperlipidemia Son Asthma Daughter No problems noted. Brother No problems noted. 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 Pets and animals: Yes Pets and animals: cat(s) and dog(s) Sexually active: No Do you think of yourself as: straight/heterosexual Current gender identity: female What is your relationship status?: How often do you talk on the phone with friends or family?: once per week How often do you get together with friends or relatives?: decline to answer How often do you attend religion or mandaeism services?: decline to answer Do you belong to any clubs or organized social groups?: no Panel score (0-1 are the most socially isolated patients): 1 What type of physical activity do you participate in: walking Duration: < 15 minutes/day Frequency: 3-4 times per week Anna/Mormonism: Yazdanism Special anna needs: No Seatbelt use: always Helmet use: Yes Helmet use: always Do you feel safe at home: Yes Do you feel safe in your relationship?: Yes Exam Narrative Exam Narrative: General: elderly female, sitting in bed with HOB elevated, watching TV. She is alert, oriented to place, knows it is [place], thought it was 2024, she was not able to say she had a stroke but stated she was unable to talk this morning. HEENT: atraumatic, EOMI, mmm Neck: supple Respiratory: respirations appear even and unlabored at rest. Results Last Vital Signs Temp 37.3 C 08/06/24 14:37 Pulse 72 08/06/24 14:37 Resp 16 08/06/24 14:37 BP 118/66 08/06/24 14:37 Pulse Ox 94 08/06/24 14:37 Labs 08/06/24 05:35 08/06/24 06:49 Labs: Laboratory Results - last 24 hr 08/06/24 08/06/24 08/06/24 05:35 06:20 06:49 WBC 12.74 H RBC 4.69 Hgb 14.3 Hct 45.3 MCV 97 H MCH 30.5 MCHC 31.6 L RDW 14.3 Plt Count MPV Immature Gran % 0.4 Neutrophils % 83.4 Lymphocytes % 6.5 Monocytes % 8.5 Eosinophils % 0.6 Basophils % 0.6 Nucleated RBC % 0.0 Absolute Neutrophils 10.63 H Absolute Lymphocytes 0.83 L Absolute Monocytes 1.08 H Absolute Eosinophils 0.08 Absolute Basophils 0.08 Sodium 142 Potassium 4.2 Chloride 107 Carbon Dioxide 22.0 Anion Gap 13.0 H BUN 29 H Creatinine 1.6 H Est GFR (CKD-EPI 2020) 32.00 Glucose 116 H Hemoglobin A1c Cancelled Calcium 9.1 Total Bilirubin 0.66 AST 17 ALT 9 L Alkaline Phosphatase 99 Total Protein 7.4 Albumin 2.7 L Triglycerides 97 Total Cholesterol 189 LDL Cholesterol, Calc 123 H HDL Cholesterol 47 08/06/24 07:50 WBC RBC Hgb Hct MCV MCH MCHC RDW Plt Count MPV Immature Gran % Neutrophils % Lymphocytes % Monocytes % Eosinophils % Basophils % Nucleated RBC % Absolute Neutrophils Absolute Lymphocytes Absolute Monocytes Absolute Eosinophils Absolute Basophils Sodium Potassium Chloride Carbon Dioxide Anion Gap BUN Creatinine Est GFR (CKD-EPI 2020) Glucose Hemoglobin A1c 5.7 Calcium Total Bilirubin AST ALT Alkaline Phosphatase Total Protein Albumin Triglycerides Total Cholesterol LDL Cholesterol, Calc HDL Cholesterol Time Spent Time Spent with Patient Time Spent(min): 68
[2024-08-06] MEDS: Enoxaparin 30 MG/0.3 ML SYR SC (17:28)
[2024-08-06] MEDS: Gabapentin 100 MG CAP 200 MG PO (19:44)
[2024-08-06] MEDS: Atorvastatin 40 MG TAB PO (19:45)
--- NOTE | 2024-08-06 22:00 | RT.EKG_ITS ---
APPROVED REPORT Exam: Resting ECG Reason for Exam: new onset A FIB Patient Location: I HR:138 bpm ECG Measurements Heart Rate 138 AXIS WV [id number] P [id number] QRSd 95 QRS -32 QT 283 T 146 QTc 429 Conclusion Atrial fibrillation...V-rate 105-158, irreg A-activity Inferior infarct, old...Q >35mS, II III aVF Anterior infarct, old...Q >40mS, abnormal ST-T, V2-V5 Lateral leads are also involved...lat Q or ST-T abnormalities
[2024-08-06] MEDS: Metoprolol 5 MG/5 ML VIAL IVP (22:20)
[2024-08-07 06:19] LABS: Abs Immature Grans 0.03 10^3/uL (0.0-0.06); Absolute Basophil Count 0.04 10^3/uL (0.0-0.2); Absolute Lymphocyte Count 1.27 10^3/uL (1.2-3.4); Absolute Monocyte Count 0.55 10^3/uL (0.1-0.8); Absolute Neutrophil Count 4.88 10^3/uL (1.2-6.7); Basophils % 0.6 %; Eosinophils % 2.9 %; HCT 36.9 % (36.0-46.0); HGB 11.9 g/dL (11.2-15.7); Immature Grans % 0.4 %; Lymphocytes % 18.2 %; MCH 30.1 pg (27.0-33.0); MCHC 32.2 % (32.0-36.0); MCV 93 fL (80-95); MPV 9.5 fL (8.0-11.0); Monocytes % 7.9 %; Platelet Count 291 10^3/uL (130-400); RBC 3.95 10^6/uL (3.93-5.22); RDW 14.2 % (11.7-14.6); RDW-SD 48.9 fL; WBC 6.97 10^3/uL (4.4-10.8)
[2024-08-07 06:20] LABS: Anion Gap 11.8 mmol/L (3-11); BUN 21 mg/dL (7-18); CO2 20.2 mmol/L (21.0-32.0); CREATININE 1.3 mg/dL (0.55-1.02); Calcium 8.3 mg/dL (8.5-10.1); Chloride 110 mmol/L (98-107); Estimated GFR 41.06 (mL/min/1.73m2); Glucose 102 mg/dL (74-106); Potassium 4.3 mmol/L (3.5-5.1); Sodium 142 mmol/L (136-145)
[2024-08-07 07:44] VITALS: BP 114/67; PULSE 106; RESP 15; TEMP 36.9; O2SAT 95
[2024-08-07] MEDS: Aspirin 325 MG TAB PO (08:51)
[2024-08-07] MEDS: Metoprolol 25 MG TAB PO (08:51)
[2024-08-07] MEDS: Clopidogrel 75 MG TAB PO (08:52)
[2024-08-07] MEDS: amLODIPine 10 MG TAB PO (08:52)
[2024-08-07] MEDS: Docusate Sodium 100 MG CAP PO (08:52)
[2024-08-07] MEDS: Miconazole 2% Topical Powder 85 GM BTL TP ×2 (08:53→19:53)
[2024-08-07] MEDS: Normal Saline Flush 10 ML SYR IVP ×5 (08:58→19:52)
[2024-08-07 11:06] VITALS: BP 107/77; PULSE 89; RESP 12; TEMP 36.6; O2SAT 95
--- NOTE | 2024-08-07 12:55 | PT.INTREAT ---
Date of service: 08/07/24 Time of Service: 09:30 PT Notes Visit Reasons: CVA Inpatient Physical Therapy Treatment Note [facility] Date: 08/07/2024 PRECAUTIONS: Fall, standard, aspiration risk SUBJECTIVE: Indicated her is Shankar and she stated to volunteer that she is a resident of [place]. Doing fair this morning and willing to take a little walk in room. At completion of ambulation while sitting on edge of bed she did indicate she felt a little SOB, mild dizziness. Was asked several times t/o ambulation if she would like to sit to rest and indicated she felt she was good to walk to bed. OBJECTIVE: ? PAIN: No complaints of pain VITALS: Telemetry monitored by SCU nurse and we were alerted that Alma Rosa's HR had increased to 169 b/m while walking. Upon nurse's arrival to Alma Rosa's room, to alert us, Alma Rosa was sitting on edge of bed resting with noted SOB. After short rest in this position she was able to walked back to her recliner where she requested to be with by myself and SCU nurse. Patient's nurse Teodora did take BP while in recliner post ambulation and it was noted to be 134/110. ? Therapeutic Activities ([id number] - 20 minutes): Direct one-on-one instruction in dynamic activities to improve functional performance. ?? Patient was up in recliner upon my arrival to room today. Required min assist of one with sit to stand. Was a bit unsteady when first standing but was able to right herself within about 30 seconds. ? GAIT? Assistive Device: FWW? Weight bearing: Full Assist: CGA walking to door and door to edge of bed.? Distance:? Approximately 25ft ? Deviation: Slow controlled gait, with short steps and decreased step height ? Due to increased HR ambulation only was performed today. Declined pain with activity. Did have SOB once at end of ambulation. ASSESSMENT:?Significant increase in HR with ambulation in room today, so treatment was discontinued post ambulation. PLAN: Will check with nursing prior to any further PT intervention tomorrow. TREATMENT CODE/TIME: [id number], 9:35 to 9:50 am (15') DISCHARGE RECOMMENDATION: Rehab recommended prior to DC to home.
[2024-08-07] MEDS: cefTRIAXone 1 GM/50 ML BAG IVPB (13:25)
[2024-08-07 13:31] VITALS: BP 87/68; PULSE 75
[2024-08-07 14:54] VITALS: BP 102/73; PULSE 80; RESP 14; TEMP 37; O2SAT 95
[2024-08-07] MEDS: Enoxaparin 30 MG/0.3 ML SYR SC (15:54)
[2024-08-07] MEDS: AZITHROMYCIN 500 MG in Normal Saline 250 ML 250 MG IVPB (16:21)
--- NOTE | 2024-08-07 17:01 | PGE_ITS ---
Date of Service Date of service: 08/07/24 Time of Service: 17:02 Assessment and Plan Assessment and plan (1) CVA (cerebral vascular accident): Status: Chronic Assessment and plan: MRI - nothing acute Echocardiogram - 60%EF, no WMA telemetry ASA 325 mg PO daily Lipitor 40 mg PO continue Lipid panel - LDL 123, Total cholesterol 189, HDL 47, triglycerides 97 hemoglobin A1C 5.7 PT consult Palliative care consult - done see note - DNR/DNI reviewed and confirmed - does want outpt followup (2) Infiltrate of lower lobe of left lung present on imaging study: Status: Acute Assessment and plan: As per CXR On Ceftriaxone and azithromycin IS (3) Atrial fibrillation: Status: Chronic Assessment and plan: Afib, with RVR earlier in the day treated with metoprolol with good results - HR 80's (4) Stenosis of left subclavian artery: Status: Acute Assessment and plan: Outpatient f/u with vascular Carotid US scheduled at [facility] [place] in 09/2024 (5) Stenosis of left internal carotid artery: Status: Chronic Assessment and plan: As above (6) Hyperlipidemia: Status: Chronic Assessment and plan: See above (7) HTN (hypertension): Status: Chronic Assessment and plan: Home antihypertensive on hold for permissive HTN VS Q4 call for SBP > 160-170 Was on amlodipine , hydralazine and lisinopril (8) On deep vein thrombosis (DVT) prophylaxis: Status: Acute Assessment and plan: On LMWH Discussed with Dr. Erickson Subjective Subjective Patient reports: no new complaints, tolerating liquids well, tolerating a regular diet and afebrile; denies flatus, diarrhea, nausea or vomiting Exam Const General: no acute distress Orientation: alert [facility] Head: normal to inspection Ears: external ears normal General nose exam: external nose normal Mouth: moist mucous membranes Eyes General: appearance normal, both eyes and all related structures Neck Neck: normal visual inspection and nontender Resp Effort & Inspection: normal respiratory effort and able to speak in complete sentences Auscultation: clear to auscultation bilaterally Cardio Rate: regular rate GI Palpation: soft and nontender Skin General skin exam: no rashes or lesions noted Neuro General: patient alert and patient oriented x3 Extrem General: normal to inspection and capillary refill normal Psych Mental Status: mental status grossly normal Objective Last Vital Signs Temp 37.0 C 08/07/24 14:54 Pulse 80 08/07/24 14:54 Resp 14 08/07/24 14:54 BP 102/73 08/07/24 14:54 Pulse Ox 95 08/07/24 14:54 Laboratory Results - last 24 hr 08/07/24 05:48 WBC 6.97 RBC 3.95 Hgb 11.9 D Hct 36.9 MCV 93 D MCH 30.1 MCHC 32.2 RDW 14.2 Plt Count 291 MPV 9.5 Immature Gran % 0.4 Neutrophils % 70.0 Lymphocytes % 18.2 Monocytes % 7.9 Eosinophils % 2.9 Basophils % 0.6 Nucleated RBC % 0.0 Absolute Neutrophils 4.88 Absolute Lymphocytes 1.27 Absolute Monocytes 0.55 Absolute Eosinophils 0.20 Absolute Basophils 0.04 Sodium 142 Potassium 4.3 Chloride 110 H Carbon Dioxide 20.2 L Anion Gap 11.8 H BUN 21 H Creatinine 1.3 H Est GFR (CKD-EPI 2020) 41.06 Glucose 102 Calcium 8.3 L Magnesium 2.0 PAWSS Have you Been Recently Intoxicated or Drunk Within the Last 30 days?: No Have you Ever Experienced Previous Episodes of Alcohol Withdrawal?: No Have you ever Experienced Withdrawal Seizures?: No Have you ever Experienced Delirium Tremens(DT)s?: No Have you ever undergone Alcohol Rehabilitation Treatment (i.e, inpt ot outpatient treatment programs)?: No Have you ever Experienced Blackouts?: No Have you ever Combined Alcohol with other Downers within the last 90 days?: No Have you ever Combined Alcohol with any other Substance of Abuse during the last 90 days?: No Positive Blood Alcohol level on Presentation? [PCS.BAL]: No Evidence of Increased Autonomic Activity (i.e. HR>120, tremor, sweating, agitation, nausea)?: No Result: 0 Time Spent with Patient Time Spent with Patient: 25-34 minutes Time was spent: preparing to see the patient(eg.review tests), ordering medications,tests, procedures, referring, communicating with other health neonatal critical care nurse, indepentently interpreting results, counseling the patient and care coordination
[2024-08-07 19:38] VITALS: BP 118/53; PULSE 60; RESP 14; TEMP 37; O2SAT 95
[2024-08-07] MEDS: Gabapentin 100 MG CAP 200 MG PO (19:52)
[2024-08-07] MEDS: Atorvastatin 40 MG TAB PO (19:52)
[2024-08-07 23:32] VITALS: BP 122/60; PULSE 61; RESP 14; TEMP 36.6; O2SAT 95
[2024-08-08] VITALS (7 sets, daily range): BP systolic 100–148; BP diastolic 54–84; PULSE 51–88; RESP 14–24; TEMP 36–36.7; O2SAT 91–97
[2024-08-08 06:13] LABS: Abs Immature Grans 0.02 10^3/uL (0.0-0.06); Absolute Basophil Count 0.05 10^3/uL (0.0-0.2); Absolute Eosinophil Count 0.36 10^3/uL (0.0-0.7); Absolute Lymphocyte Count 1.14 10^3/uL (1.2-3.4); Absolute Monocyte Count 0.55 10^3/uL (0.1-0.8); Absolute Neutrophil Count 3.46 10^3/uL (1.2-6.7); Basophils % 0.9 %; Eosinophils % 6.5 %; Immature Grans % 0.4 %; Lymphocytes % 20.4 %; MCH 33.1 pg (27.0-33.0); MCHC 35.3 % (32.0-36.0); MCV 94 fL (80-95); MPV 9.6 fL (8.0-11.0); Monocytes % 9.9 %; Neutrophils % 61.9 %; Platelet Count 302 10^3/uL (130-400); RBC 3.63 10^6/uL (3.93-5.22); RDW 14.2 % (11.7-14.6); RDW-SD 49.3 fL; WBC 5.58 10^3/uL (4.4-10.8)
[2024-08-08 06:27] LABS: Anion Gap 10.3 mmol/L (3-11); BUN 31 mg/dL (7-18); CO2 21.7 mmol/L (21.0-32.0); CREATININE 1.4 mg/dL (0.55-1.02); Calcium 8.5 mg/dL (8.5-10.1); Chloride 111 mmol/L (98-107); Estimated GFR 37.56 (mL/min/1.73m2); Glucose 107 mg/dL (74-106); Magnesium 2.1 mg/dL (1.8-2.4); Potassium 4.1 mmol/L (3.5-5.1); Sodium 143 mmol/L (136-145)
[2024-08-08] MEDS: Docusate Sodium 100 MG CAP PO (08:58)
[2024-08-08] MEDS: Aspirin 325 MG TAB PO (08:58)
[2024-08-08] MEDS: Miconazole 2% Topical Powder 85 GM BTL TP ×2 (08:58→19:36)
[2024-08-08] MEDS: Metoprolol 12.5 MG TAB PO ×2 (08:58→19:33)
[2024-08-08] MEDS: amLODIPine 10 MG TAB PO (08:59)
[2024-08-08] MEDS: Clopidogrel 75 MG TAB PO (08:59)
[2024-08-08] MEDS: Normal Saline Flush 10 ML SYR IVP ×6 (09:00→19:33)
--- NOTE | 2024-08-08 11:49 | W.PM.PROGNOT ---
Date of Service Date of service: 08/08/24 Time of Service: 11:49 Assessment and Plan Assessment and plan (1) CVA (cerebral vascular accident): Status: Chronic Assessment and plan: MRI - nothing acute Echocardiogram - 60%EF, no WMA telemetry - normal sinus today Continue ASA 325 mg PO daily Continue Lipitor 40 mg PO Lipid panel - LDL 123, Total cholesterol 189, HDL 47, triglycerides 97 hemoglobin A1C 5.7 PT Palliative care consult - done see note - DNR/DNI reviewed and confirmed - does want outpt followup (2) Infiltrate of lower lobe of left lung present on imaging study: Status: Acute Assessment and plan: As per CXR On Ceftriaxone and azithromycin IS O2 PRN - no requirment (3) Atrial fibrillation: Status: Chronic Assessment and plan: Now NSR; with some bradycardia - will decrease metoprolol again. (4) Stenosis of left subclavian artery: Status: Acute Assessment and plan: Outpatient f/u with vascular Carotid US scheduled at [facility] in 09/2024 (5) Stenosis of left internal carotid artery: Status: Chronic Assessment and plan: As above (6) Hyperlipidemia: Status: Chronic Assessment and plan: See above (7) HTN (hypertension): Status: Chronic Assessment and plan: Home antihypertensive on hold for permissive HTN VS Q4 call for SBP > 160-170 Was on amlodipine , hydralazine and lisinopril (8) On deep vein thrombosis (DVT) prophylaxis: Status: Acute Assessment and plan: On LMWH Discussed with Dr. Erickson Subjective Subjective Patient reports: no new complaints, feels better, tolerating liquids well, tolerating a regular diet and afebrile; denies diarrhea or vomiting Exam Const General: no acute distress Orientation: alert [facility] Head: normal to inspection Ears: external ears normal General nose exam: external nose normal Mouth: moist mucous membranes Eyes General: appearance normal, both eyes and all related structures Neck Neck: normal visual inspection and nontender Resp Effort & Inspection: normal respiratory effort and able to speak in complete sentences Auscultation: clear to auscultation bilaterally Cardio Rate: regular rate GI Palpation: soft and nontender Skin General skin exam: no rashes or lesions noted Neuro General: patient alert and patient oriented x3 Extrem General: normal to inspection and capillary refill normal Psych Mental Status: mental status grossly normal Objective Last Vital Signs Temp 36.1 C L 08/08/24 07:17 Pulse 58 L 08/08/24 08:51 Resp 24 08/08/24 07:17 BP 134/84 08/08/24 08:51 Pulse Ox 94 08/08/24 07:17 Laboratory Results - last 24 hr 08/08/24 06:02 WBC 5.58 RBC 3.63 L Hgb 12.0 Hct 34.0 L MCV 94 MCH 33.1 H MCHC 35.3 D RDW 14.2 Plt Count 302 MPV 9.6 Immature Gran % 0.4 Neutrophils % 61.9 Lymphocytes % 20.4 Monocytes % 9.9 Eosinophils % 6.5 Basophils % 0.9 Nucleated RBC % 0.0 Absolute Neutrophils 3.46 Absolute Lymphocytes 1.14 L Absolute Monocytes 0.55 Absolute Eosinophils 0.36 Absolute Basophils 0.05 Sodium 143 Potassium 4.1 Chloride 111 H Carbon Dioxide 21.7 Anion Gap 10.3 BUN 31 H Creatinine 1.4 H Est GFR (CKD-EPI 2020) 37.56 Glucose 107 H Calcium 8.5 Magnesium 2.1 PAWSS Have you Been Recently Intoxicated or Drunk Within the Last 30 days?: No Have you Ever Experienced Previous Episodes of Alcohol Withdrawal?: No Have you ever Experienced Withdrawal Seizures?: No Have you ever Experienced Delirium Tremens(DT)s?: No Have you ever undergone Alcohol Rehabilitation Treatment (i.e, inpt ot outpatient treatment programs)?: No Have you ever Experienced Blackouts?: No Have you ever Combined Alcohol with other Downers within the last 90 days?: No Have you ever Combined Alcohol with any other Substance of Abuse during the last 90 days?: No Positive Blood Alcohol level on Presentation? [PCS.BAL]: No Evidence of Increased Autonomic Activity (i.e. HR>120, tremor, sweating, agitation, nausea)?: No Result: 0 Time Spent with Patient Time Spent with Patient: 25-34 minutes Time was spent: preparing to see the patient(eg.review tests), ordering medications,tests, procedures, referring, communicating with other health healthcare customer service, indepentently interpreting results, counseling the patient and care coordination
--- NOTE | 2024-08-08 12:05 | PT.INTREAT ---
Date of service: 08/08/24 Time of Service: 09:40 PT Notes Visit Reasons: CVA Inpatient Physical Therapy Treatment Note [facility] Date: 08/08/2025 PRECAUTIONS: Fall, standard, aspiration risk SUBJECTIVE: Stated her left knee was bothering her earlier in the morning, but no longer bothering when doing her PT. OBJECTIVE: ? PAIN: Left knee pain reported to nursing earlier in morning but indicated no pain when asked several times t/o sessions. VITALS: Monitored via telemetry ? Pre-Treatment: HR of 54 b/m ? Post-Treatment: BP noted at 135/80 post second walk with HR of 58 b/m Therapeutic Activities (20836a5): Direct one-on-one instruction in dynamic activities to improve functional performance. ? BED MOBILITY/TRANSFERS? Rolling L/R: SBA to the right Supine-sit: HOB at 50 degrees with mod assist of one? Sit-stand: Mod assist of one ? Stand-sit: Min assist to sit gently in chair? Provided skilled cues and instruction on performance and technique throughout. ? Did have patient perform ankle pumps, quad sets and rolling hips in and out for 10 reps each prior to getting out of bed. GAIT? Assistive Device: FWW? Weight bearing: full Assist: once up in standing required only CGA ? Distance:? 10ft x 2, once at 9:40am and once at 11:15am? Deviation: Slow steady gait, with short steps and decreased step height.? No SOB noted today with activity. Nurse Teodora did indicate that Nick HR dropped to 40 during first walk on monitor.? ASSESSMENT:? Tolerated session fair without complaints. Gives good effort. PLAN: Continue to progress as able to tolerate, monitoring vitals. TREATMENT CODE/TIME: 92809u9, 9:35 to 9:55 (20') and 11:15 to 11:28 (13') DISCHARGE RECOMMENDATION: Rehab recommended prior to DC to home.
[2024-08-08] MEDS: cefTRIAXone 1 GM/50 ML BAG IVPB (13:20)
[2024-08-08] MEDS: Enoxaparin 30 MG/0.3 ML SYR SC (16:12)
[2024-08-08] MEDS: AZITHROMYCIN 500 MG in Normal Saline 250 ML 250 MG IVPB (16:13)
[2024-08-08] MEDS: Gabapentin 100 MG CAP 200 MG PO (19:33)
[2024-08-08] MEDS: Atorvastatin 40 MG TAB PO (19:33)
[2024-08-09 02:54] VITALS: BP 153/69; PULSE 57; RESP 14; TEMP 36; O2SAT 94
[2024-08-09 06:35] LABS: Abs Immature Grans 0.03 10^3/uL (0.0-0.06); Absolute Basophil Count 0.03 10^3/uL (0.0-0.2); Absolute Eosinophil Count 0.36 10^3/uL (0.0-0.7); Absolute Lymphocyte Count 0.84 10^3/uL (1.2-3.4); Absolute Monocyte Count 0.41 10^3/uL (0.1-0.8); Absolute Neutrophil Count 3.22 10^3/uL (1.2-6.7); Basophils % 0.6 %; Eosinophils % 7.4 %; HCT 38.6 % (36.0-46.0); HGB 13.3 g/dL (11.2-15.7); Immature Grans % 0.6 %; Lymphocytes % 17.2 %; MCH 32.2 pg (27.0-33.0); MCHC 34.5 % (32.0-36.0); MCV 94 fL (80-95); MPV 9.3 fL (8.0-11.0); Monocytes % 8.4 %; Neutrophils % 65.8 %; Platelet Count 315 10^3/uL (130-400); RBC 4.13 10^6/uL (3.93-5.22); RDW 13.8 % (11.7-14.6); RDW-SD 47.4 fL; WBC 4.89 10^3/uL (4.4-10.8)
[2024-08-09 07:12] LABS: Anion Gap 11.9 mmol/L (3-11); BUN 28 mg/dL (7-18); CO2 22.1 mmol/L (21.0-32.0); CREATININE 1.3 mg/dL (0.55-1.02); Calcium 8.9 mg/dL (8.5-10.1); Chloride 109 mmol/L (98-107); Estimated GFR 41.06 (mL/min/1.73m2); Glucose 111 mg/dL (74-106); Magnesium 2.2 mg/dL (1.8-2.4); Potassium 4.1 mmol/L (3.5-5.1); Sodium 143 mmol/L (136-145)
[2024-08-09 07:29] VITALS: BP 157/71; PULSE 53; RESP 16; TEMP 36.3; O2SAT 96
[2024-08-09] MEDS: Aspirin 325 MG TAB PO (08:59)
[2024-08-09] MEDS: amLODIPine 10 MG TAB PO (08:59)
[2024-08-09] MEDS: Acetaminophen 325 MG TAB 650 MG PO (08:59)
[2024-08-09] MEDS: Clopidogrel 75 MG TAB PO (08:59)
[2024-08-09] MEDS: Metoprolol 12.5 MG TAB PO ×2 (09:00→19:38)
[2024-08-09] MEDS: Docusate Sodium 100 MG CAP PO (09:00)
[2024-08-09] MEDS: Miconazole 2% Topical Powder 85 GM BTL TP ×2 (09:00→19:39)
[2024-08-09] MEDS: Normal Saline Flush 10 ML SYR IVP ×4 (09:01→19:40)
--- NOTE | 2024-08-09 10:07 | PT.INTREAT ---
PT Notes Visit Reasons: CVA Inpatient Physical Therapy Treatment Note [facility] Date: 08/09/2025 PRECAUTIONS: Fall, standard, aspiration risk SUBJECTIVE: Denied pain in her left knee today OBJECTIVE: presented seated in chair with visiting . Pt agreeable to participate. ? PAIN:denied VITALS: Monitored via telemetry Therapeutic Activities (39103i1): Direct one-on-one instruction in dynamic activities to improve functional performance. ? BED MOBILITY/TRANSFERS? Rolling L/R: not tested Supine-sit: not tested? Sit-stand: min A of 1 ? x 4 trials? Stand-sit: Min assist of 1 to sit gently in chair? ? x 4 trials? Provided skilled cues and instruction on performance and technique throughout. ? Did have patient perform ankle pumps, LAQ and marching for 10 reps each. GAIT? ?17097 ? Assistive Device: FWW? Weight bearing: full Assist: once up in standing required only CGA ? Distance:? 30ft x3? Deviation: Slow steady gait, with short steps and decreased step height on Left able to correct with verbal cue to increase step/ big step.? No SOB noted today with activity. ? ASSESSMENT:? Tolerated session well without complaints Pt demonstrated significant improvement in motor control LUE and LLE. She no longer has pain in her knee. She remains with flat affect. Less facial droop noted.Pt's present for session and stating her transfers and walking are better now then they have been for several months. He stated he has a gait belt at home and knows how to use it. He also reported she will need to climb up a 2-3 step stepstool to get into his truck for him to take her home. He reports he uses a w/c to transport her from the truck into the house via the ramp. He would like her to go home with HH PT vs STR now that she can walk. Discussed with pt and benefits of maximizing functional ability at this time . Care Management notified of preference for her to return to home but is concerned about his ability to transport her at this time in his truck. PLAN: Continue to progress as able to tolerate, monitoring vitals. TREATMENT CODE/TIME: 25874w8 57623 x 1 [id number] 35 mins DISCHARGE RECOMMENDATION: PT vs Short term SNF
--- NOTE | 2024-08-09 11:06 | PDOC.CMPRO ---
Date of service: 08/09/24 Time of Service: 11:06 Care Management Progress Note Progress Note Text Progress Note Text: Robi was sitting up in a chair when CM met with her. Her Raheel was also present and participated in the conversation. Per PT, Robi did much better with ambulation today. She was able to walk in the hallway with her FWW twice for a distance of 30 feet each time. Robi received a bed offre from [facility] today. her insurance requires prior authorization which is in progress. CM communicated the offer to robi and aRheel and they have accepted the offer, pending insurance approval. Discharge Potential Discharge Needs: Other (SNF) Anticipated Barriers to Discharge: Bed availability Patient/Family Education Needs: Review discharge instructions, discuss Ask Me Three Transportation: Other (to be determined by disposition) Plan: Anticipate Robi will be transferred to [facility] if prior authorization is approved. She will follow up with the facility providers and plan of care and transport either via facility van or RCT. CM will follow and continue to assess for discharge needs. SDOH(Care Management) Screening Will the Patient Participate in the Screening?: Unable to obtain Do you worry about having a steady place to live?: no In the past 12 months, have you had to go without electric, gas, oil or water in your home?: no Have you or anyone in your house had to go without enough food to eat?: no Has lack of transportation kept you from medical appointments or from doing things needed for daily living?: no Has anyone in your support network made you feel unsafe for any reason?: no
--- NOTE | 2024-08-09 11:25 | W.PM.PROGNOT ---
Date of Service Date of service: 08/09/24 Time of Service: 11:25 Assessment and Plan Assessment and plan (1) CVA (cerebral vascular accident): Status: Chronic Assessment and plan: MRI - nothing acute Echocardiogram - 60%EF, no WMA telemetry - normal sinus today Continue ASA 325 mg PO daily Continue Lipitor 40 mg PO Lipid panel - LDL 123, Total cholesterol 189, HDL 47, triglycerides 97 hemoglobin A1C 5.7 PT Palliative care consult - done see note - DNR/DNI reviewed and confirmed - does want outpt followup (2) Infiltrate of lower lobe of left lung present on imaging study: Status: Acute Assessment and plan: As per CXR On Ceftriaxone and azithromycin IS O2 PRN - no requirment (3) Atrial fibrillation: Status: Chronic Assessment and plan: Now NSR; with some bradycardia - will decrease metoprolol again. (4) Stenosis of left subclavian artery: Status: Acute Assessment and plan: Outpatient f/u with vascular Carotid US scheduled at [facility] in 09/2024 (5) Stenosis of left internal carotid artery: Status: Chronic Assessment and plan: As above (6) Hyperlipidemia: Status: Chronic Assessment and plan: See above (7) HTN (hypertension): Status: Chronic Assessment and plan: Home antihypertensive on hold for permissive HTN VS Q4 call for SBP > 160-170 Was on amlodipine , hydralazine and lisinopril (8) On deep vein thrombosis (DVT) prophylaxis: Status: Acute Assessment and plan: On LMWH Discussed with Dr. [place] Subjective Subjective Patient reports: no new complaints, feels better, tolerating liquids well, tolerating a regular diet and afebrile; denies shortness of breath Exam Const General: no acute distress Orientation: alert [facility] Head: normal to inspection Ears: external ears normal General nose exam: external nose normal Mouth: moist mucous membranes Eyes General: appearance normal, both eyes and all related structures Neck Neck: normal visual inspection and nontender Resp Effort & Inspection: normal respiratory effort and able to speak in complete sentences Auscultation: clear to auscultation bilaterally Cardio Rate: regular rate GI Palpation: soft and nontender Skin General skin exam: no rashes or lesions noted Neuro General: patient alert and patient oriented x3 Extrem General: normal to inspection and capillary refill normal Psych Mental Status: mental status grossly normal Objective Last Vital Signs Temp 36.3 C L 08/09/24 07:29 Pulse 53 L 08/09/24 07:29 Resp 16 08/09/24 07:29 BP 157/71 H 08/09/24 07:29 Pulse Ox 96 08/09/24 07:29 Laboratory Results - last 24 hr 08/09/24 06:17 WBC 4.89 RBC 4.13 Hgb 13.3 Hct 38.6 MCV 94 MCH 32.2 MCHC 34.5 RDW 13.8 Plt Count 315 MPV 9.3 Immature Gran % 0.6 Neutrophils % 65.8 Lymphocytes % 17.2 Monocytes % 8.4 Eosinophils % 7.4 Basophils % 0.6 Nucleated RBC % 0.0 Absolute Neutrophils 3.22 Absolute Lymphocytes 0.84 L Absolute Monocytes 0.41 Absolute Eosinophils 0.36 Absolute Basophils 0.03 Sodium 143 Potassium 4.1 Chloride 109 H Carbon Dioxide 22.1 Anion Gap 11.9 H BUN 28 H Creatinine 1.3 H Est GFR (CKD-EPI 2020) 41.06 Glucose 111 H Calcium 8.9 Magnesium 2.2 PAWSS Have you Been Recently Intoxicated or Drunk Within the Last 30 days?: No Have you Ever Experienced Previous Episodes of Alcohol Withdrawal?: No Have you ever Experienced Withdrawal Seizures?: No Have you ever Experienced Delirium Tremens(DT)s?: No Have you ever undergone Alcohol Rehabilitation Treatment (i.e, inpt ot outpatient treatment programs)?: No Have you ever Experienced Blackouts?: No Have you ever Combined Alcohol with other Downers within the last 90 days?: No Have you ever Combined Alcohol with any other Substance of Abuse during the last 90 days?: No Positive Blood Alcohol level on Presentation? [PCS.BAL]: No Evidence of Increased Autonomic Activity (i.e. HR>120, tremor, sweating, agitation, nausea)?: No Result: 0 Time Spent with Patient Time Spent with Patient: 35-49 minutes Time was spent: preparing to see the patient(eg.review tests), obtaining and/or reviewing separately otained hiistory, ordering medications,tests, procedures, indepentently interpreting results, counseling the patient and care coordination
[2024-08-09 11:36] VITALS: BP 123/78; PULSE 47; RESP 19; TEMP 36.6; O2SAT 97
[2024-08-09] MEDS: cefTRIAXone 1 GM/50 ML BAG IVPB (14:14)
[2024-08-09 15:41] VITALS: BP 137/72; PULSE 49; RESP 16; TEMP 37; O2SAT 97
[2024-08-09] MEDS: Enoxaparin 30 MG/0.3 ML SYR SC (15:41)
--- NOTE | 2024-08-09 15:55 | PT.INTREAT ---
PT Notes Visit Reasons: CVA Inpatient Physical Therapy Treatment Note [facility] Date: 08/09/2025 PRECAUTIONS: Fall, standard, aspiration risk SUBJECTIVE:Pt reports feeling tired this afternoon after sitting up all morning. OBJECTIVE: presented seated in chair with visiting . Pt agreeable to participate. ? PAIN:denied VITALS: Monitored via telemetry Therapeutic Activities (97268k7): Direct one-on-one instruction in dynamic activities to improve functional performance. ? BED MOBILITY/TRANSFERS? Rolling L/R: CGA with cues for bending knees and reaching for railing Supine-sit: min A x 2 trials via sidelying Sit to supine min A ?x 2 trials ? Sit-stand: min A of 1 ? x 1 trial from bed; mod A of 1 from chair x 1 trial ? Stand-sit: Min assist of 1 to sit gently in chair? x 2trials? Provided skilled cues and instruction on performance and technique throughout. ? Did have patient perform ankle pumps, LAQ and marching for 10 reps each. GAIT? ?66354 ? Assistive Device: FWW? Weight bearing: full Assist: once up in standing required only CGA ? Distance:? 30ft x1? Deviation: Slow steady gait, with short steps and decreased step height on Left able to correct with verbal cue to increase step/ big step.? No SOB noted today with activity. ? ASSESSMENT:? Tolerated session well without complaints Pt with decreased activity tolerance this afternoon as compared to this morning session. Pt requesting to rest . Pt noted increased need for assistance with sit to stnd from 17 height which she was able to perform in the AM with CGA. reported pt will likely go to [facility] tomorrow if insurance approves the transfer. PLAN: Continue to progress as able to tolerate, monitoring vitals. TREATMENT CODE/TIME: [id number] DISCHARGE RECOMMENDATION: HH PT vs Short term SNF
[2024-08-09] MEDS: AZITHROMYCIN 500 MG in Normal Saline 250 ML 250 MG IVPB (16:20)
--- NOTE | 2024-08-09 16:33 | SP_ITS ---
Date of service: 08/09/24 Time of Service: 12:00 Subjective Clinical (Bedside) Swallow Evaluation Speech Language Pathology Referred by: Leeann Doran Referral Type: Clinical Swallow Evaluation Reason for Referral/HPI: Alma Rosa Mariano is an 83 yo female who was adm to [facility] 08/06/24 with suspected CVA in the setting of increased left side weakness. 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 Did not work with INSURANCE OFFICE SUPERVISOR per Raheel. Raheel reports noticing a decline in strength, cognition, energy levels, as well as new onset swallowing symptoms over the past several months: coughing primarily with liquids/pills, sometimes solids- symptoms fluctuate overall. No concerns for weight loss or loss of appetite. Workup this admission includes: CXR identified L LL infiltrate; MRI of the brain negative for acute finding, with old bilateral basal ganglia infarcts and old R frontal infarct. INSURANCE OFFICE SUPERVISOR IMPRESSIONS & RECOMMENDATIONS: Alma Rosa was seen today at end of noon meal, with limited PO trials. Oral mechanism examination revealed slight lingual deviation on protrusion with suspected L lingual weakness with lateralization. Labial strength is WNL. Alma Rosa's provided most case history and she had limited participation in conversation, though her speech was clear and fluent without evidence of dysarthria or aphasia. She demonstrated a delayed swallow initiation with intermittent coughing appreciated throughout trials, appearing most related to thin liquids. Pharyngeal phase of the swallow appears discoordinated/inconsistent. In light of recent/reported worsening dysphagia symptoms and current pneumonia, MBSS may be beneficial to further assess swallow function. Per diagnostic imaging, MBSS fluoro machine is down; anticipate earliest it will be repaired is Friday. Alma Rosa is slated to discharge to rehab tomorrow or Friday pending insurance approval. INSURANCE OFFICE SUPERVISOR will continue to follow to determine if MBSS indicated during inpatient vs outpatient procedure. FURTHER INSURANCE OFFICE SUPERVISOR SERVICES: Patient to be followed while on unit. Upon Discharge, outpatient MBSS britt mmended if not completed during admission Diet Recommendations: SUBJECTIVE: Patient received alert/awake, agreeable to evaluation Pain Reported? None Baseline Swallow Function: See above- dysphagia w/ liquids and pills, sometimes solids, over the last 1-3 months PO Trials Assessed: IDDSI 0 Thin Liquids IDDSI 7EC Easy to Chew Solid - Sugar cookie, 2 bites Oral Mechanism Examination: Dentition is WFL Oral mucosa is WFL Cranial Nerve Assessment: CN V ? Trigeminal Facial Sensation WNL Jaw Strength/ROM WNL ?WNL CN VII- Facial WNL labial ROM, strength, coordination. WNL lingual sensation WNL CN IX ? Glossopharyngeal Unable to visualize No evidence of nasal emissions WFL CN X ? Vagus WNL Vocal quality and volume. Strong/sharp volitional cough WNL CX XII ? Hypoglossal Lingual deviation on protrusion (slight) Decreased strength noted on L side/when moving to R Impaired Oral Phase Findings: Prolonged oral phase, WFL Pharyngeal Phase Findings: Delayed swallow initiation Reduced hyolaryngeal elevation/excursion Cough after swallow intermittently with thin liquids Swallow appeared inconsistent across trials with thin ASSESSMENT: Further INSURANCE OFFICE SUPERVISOR Services indicated. Patient to be followed while on unit. Recommendation at Discharge: to be determined Suggested Referrals: N/A Recommended Procedures: MBSS/VFSS Recommendations: ? SOLIDS: 6-Soft & Bite-Sized Solids LIQUIDS: 0-Thin Liquids MEDICATIONS: Whole or crushed in puree solids RISK MANAGEMENT: HOB upright as tolerated; upright for all PO intake. Oral hygiene BID/2x per day Level of Assistance/Supervision: Intermittent supervision Strategies/Adaptations/Assistive Equipment: Provide verbal and/or visual cues to use recommended strategies Small sips and bites when eating, Slow rate of intake Posture/Positioning Needs: Maintain upright position at least 30 minutes after meals Education Provided to: Nursing, Patient, Family Topics Addressed: INSURANCE OFFICE SUPERVISOR findings/precautions PLAN: Frequency: 2-3x/week for 1-2 weeks Goals: Tobacco Feeder Catcher Goals: Patient will remain free from aspiration-related illness, malnutrition, and dehydration. Short Term Goals: Patient will tolerate L6 soft bite sized Diet and Thin liquids without overt s/s aspiration across 2/2 visits. Patient will tolerate PO trials for consideration of diet upgrade without overt s/s aspiration across 2/2 visits. Patient will participate in MBSS for further assessment. INSURANCE OFFICE SUPERVISOR CPT Code: 46813 Clinical Swallowing Evaluation TOTAL TIME: 20 Minutes [id number] Dysphagia Evaluation
[2024-08-09 19:26] VITALS: BP 105/76; PULSE 56; RESP 16; TEMP 36.1; O2SAT 95
[2024-08-09] MEDS: Gabapentin 100 MG CAP 200 MG PO (19:38)
[2024-08-09] MEDS: Atorvastatin 40 MG TAB PO (19:38)
[2024-08-09 23:18] VITALS: BP 110/72; PULSE 53; RESP 16; TEMP 36.1; O2SAT 96
[2024-08-10 03:10] VITALS: BP 120/78; PULSE 55; RESP 15; TEMP 36.5; O2SAT 95
[2024-08-10 07:23] VITALS: BP 154/79; PULSE 58; RESP 16; TEMP 36.8; O2SAT 96
[2024-08-10] MEDS: Metoprolol 12.5 MG TAB PO (08:10)
[2024-08-10] MEDS: amLODIPine 10 MG TAB PO (08:11)
[2024-08-10] MEDS: Aspirin 325 MG TAB PO (08:11)
[2024-08-10] MEDS: Clopidogrel 75 MG TAB PO (08:11)
[2024-08-10] MEDS: Docusate Sodium 100 MG CAP PO (08:11)
[2024-08-10] MEDS: Normal Saline Flush 10 ML SYR IVP (08:12)
[2024-08-10] MEDS: Miconazole 2% Topical Powder 85 GM BTL TP (08:12)
[2024-08-10] MEDS: Acetaminophen 325 MG TAB 650 MG PO (08:48)
--- NOTE | 2024-08-10 09:37 | PDOC.CMDIS ---
Date of service: 08/10/24 Time of Service: 09:37 LACE Index Scoring Tool Questions: Length of Stay (in days): 4 - 6 Was the patient admitted via the E.D.?: Yes Comorbidities: Cerebrovascular Disease E.D. Visits: 2 Answers: Total Score: 10 Risk of Readmission: High Risk Care Management Discharge Plan Reason for Hospitalization: CVA Discharge Plan: Alma Rosa will be transferred to [facility] for short term rehab prior to returning home. She will follow up with the facility providers and plan of care and transport via RCT coordinated by CM. Patient/Family Education Needs: expectations, limitations Services Needed at Discharge: Group Home Facility SDOH Health Related Social Needs: No Data to Display
--- NOTE | 2024-08-10 10:13 | W.PM.PROGNOT ---
Assessment and Plan Assessment and plan (1) CVA (cerebral vascular accident): Status: Chronic Assessment and plan: MRI - nothing acute Echocardiogram - 60%EF, no WMA telemetry - normal sinus today Continue ASA 325 mg PO daily Continue Lipitor 40 mg PO Lipid panel - LDL 123, Total cholesterol 189, HDL 47, triglycerides 97 hemoglobin A1C 5.7 PT Palliative care consult - done see note - DNR/DNI reviewed and confirmed - does want outpt followup (2) Infiltrate of lower lobe of left lung present on imaging study: Status: Acute Assessment and plan: As per CXR On Ceftriaxone and azithromycin IS O2 PRN - no requirment (3) Atrial fibrillation: Status: Chronic Assessment and plan: Now NSR; with some bradycardia - will decrease metoprolol again. (4) Stenosis of left subclavian artery: Status: Acute Assessment and plan: Outpatient f/u with vascular Carotid US [place] at [facility] in 09/2024 (5) Stenosis of left internal carotid artery: Status: Chronic Assessment and plan: As above (6) Hyperlipidemia: Status: Chronic Assessment and plan: See above (7) HTN (hypertension): Status: Chronic Assessment and plan: Home antihypertensive on hold for permissive HTN VS Q4 call for SBP > 160-170 Was on amlodipine , hydralazine and lisinopril (8) On deep vein thrombosis (DVT) prophylaxis: Status: Acute Assessment and plan: On LMWH Discussed with Dr. [place] Objective Last Vital Signs Temp 36.8 C 08/10/24 07:23 Pulse 58 L 08/10/24 07:23 Resp 16 08/10/24 07:23 BP 154/79 H 08/10/24 07:23 Pulse Ox 96 08/10/24 07:23 PAWSS Have you Been Recently Intoxicated or Drunk Within the Last 30 days?: No Have you Ever Experienced Previous Episodes of Alcohol Withdrawal?: No Have you ever Experienced Withdrawal Seizures?: No Have you ever Experienced Delirium Tremens(DT)s?: No Have you ever undergone Alcohol Rehabilitation Treatment (i.e, inpt ot outpatient treatment programs)?: No Have you ever Experienced Blackouts?: No Have you ever Combined Alcohol with other Downers within the last 90 days?: No Have you ever Combined Alcohol with any other Substance of Abuse during the last 90 days?: No Positive Blood Alcohol level on Presentation? [PCS.BAL]: No Evidence of Increased Autonomic Activity (i.e. HR>120, tremor, sweating, agitation, nausea)?: No Result: 0
--- NOTE | 2024-08-10 10:32 | DSE_ITS ---
Date of service: 08/10/24 Time of Service: 11:00 DS: Diagnosis Discharge Diagnosis (1) CVA (cerebral vascular accident): Status: Chronic (2) Infiltrate of lower lobe of left lung present on imaging study: Status: Acute (3) Atrial fibrillation: Status: Chronic (4) Stenosis of left subclavian artery: Status: Acute (5) Stenosis of left internal carotid artery: Status: Chronic (6) Hyperlipidemia: Status: Chronic (7) HTN (hypertension): Status: Chronic (8) On deep vein thrombosis (DVT) prophylaxis: Status: Acute Discharge Plan Disposition Patient Disposition: Care Home Facility(SNF) Condition: Improving Discharge Details Reason For Visit: CVA Admit Date/Time: 08/05/24 14:39 Admit Provider: Alexandre Erickson Attending Provider: Alexandre Erickson Primary Care Provider: Darlene Toscano Hospital Course Hospital Course: This 83-year-old female patient with a past medical history of hyperlipidemia, left-sided hemiplegia status post stroke to the right MCA, stenosis of the left internal carotid artery, stenosis of the left subclavian artery, hypertension presented today to the ED at any [facility] for evaluation of increased left-sided hemiplegia symptoms and weakness with last well-known date as of [address] [facility] Workup in the ED was significant for WBC at 14, BUN and creatinine relatively coherent 31 and 1.9 with baseline around 1.3 and 20. Head and neck CTA showed a significant nonhemorrhagic infarct in the right basal ganglia and right periventricular white matter which was not evident on the prior study of 07/20/2023. Significant stenosis seen in the distal left common carotid artery and high-grade stenosis in the proximal left internal carotid artery, approximately 80-90 percent,critical stenosis or occlusion noted just beyond the origin of the left subclavian artery off the aortic ar no change seen in the multiple stable lacunar infarct in the left basal ganglia since there were noted in June 2023. Right thyroid lobe nodule again with recommendation for non- emergent ultrasound. Chest x-ray showed mild infiltrate to the left lower lobe pointing to pneumonia. [facility] teleneurology consultation was completed with recommendations for admission for MRI, aspirin increased to 325, ongoing Plavix, echocardiogram, physical therapy and occupational therapy without recommendation for tPA or thrombectomy by interventional neurology. However, neurovascular consult should be pursued for endarterectomy recommendations status post discharge; [place] [facility] [place] The hospitalist was consulted and patient admitted to the medical surgical floor with telemetry for evaluation and management of subacute right basal ganglia stroke, JH on CKD, pneumonia. In the ED the patient was treated with IV fluids, intravenous ceftriaxone and azithromycin and ASA 325 mg. During the stay, the patient continued to receive intravenous ceftriaxone and azithromycin until completion of treatment. The patient had mentioned stopping her statin due to increased sleepiness a few a couple of weeks prior to presentation;high dose statin therapy was reinitiated. Lipid panel showed an LDL of 123. The patient developed paroxysmal atrial fibrillation with rapid ventricular response and was started on metoprolol and apixaban. The patient had an has bled HAS-BLED score of 4 points or 8.9% risk of bleeding on current treatment and a CHA2D S2- VA score of 6 points or 15.5% risk of embolic event from the atrial fibrillation. Those were discussed with patient in shared decision making process. MRI was completed and showed no acute stroke. An echocardiogram was completed with the following impressions: Concentric left ventricular hypertrophy. There is prominent disproportional upper septal thickening. EF is 60%. Wall motion is normal Normal right ventricular size and function Both atria are normal in size Aortic valve is sclerotic and probably trileaflet. There is mild aortic stenosis with a mean gradient of 10 mmHg. Severe mitral annular calcification. There is systolic anterior motion of the mitral leaflets. There is mild mitral regurgitation Estimated right ventricular systolic pressure is 30 mmHg Ascending aorta measures 3.6 cm Patient initially stating that she was full code despite previous COLST form completed in October [address] Rizo where she was a DNR/DNI. Palliative care consult was completed and the patient referred to the CODE STATUS to DNR/DNI; she will need to follow-up outpatient. Physical therapy recommendations are for acute Rehab facility vs short term SNF for continued rehabilitation for CVA. The patient will need cardiology follow-up to reevaluate Eliquis dosing as well as AV mehran blocking agent. The patient will need neurology follow-up. The carlos jacob will be discharged to [facility] today. The patient will need to see her general care practitioner within 7 days of discharge. Discussed with Dr. [place] Home Meds and New Rx's Prescriptions: New metoprolol succinate [Toprol XL] 25 mg tablet extended release 24 hr 12.5 mg PO HS Qty: 15 0RF apixaban 5 mg tablet 5 mg PO BID Qty: 60 0RF aspirin 325 mg capsule 325 mg PO DAILY Qty: 30 0RF Continued hydralazine 10 mg tablet 10 mg PO TID Qty: 90 3RF atorvastatin 40 mg tablet 40 mg PO DAILY Qty: 90 3RF clopidogrel 75 mg tablet 75 mg PO DAILY Qty: 90 3RF triamcinolone acetonide 0.1 % cream 1 applic topical BID Qty: 80 1RF Rx Instructions: apply to perineal area but NOT in vagina amlodipine 10 mg tablet 10 mg PO DAILY Qty: 90 3RF gabapentin 100 mg capsule 200 mg PO HS PRN PRN (Reason: anxiety) Rx Instructions: 06/16/24: Per task, pt advised to take 1-2 tabs PRN. -hb docusate sodium [Colace] 100 mg capsule 100 mg PO DAILY Held aspirin 81 mg tablet,chewable 81.0 mg PO DAILY Qty: 90 3RF Hold Instructions: Resume on 08/28/24. Continue as per cardiology f/u lisinopril 40 mg tablet 40 mg PO DAILY Qty: 90 3RF Hold Instructions: Resume on 08/28/24. On metoprolol now with amlodipine and hydralazine Discharge Instructions Referrals: Hilary De La Rosa MD [ [facility] STAFF PHYSICIAN] - (Follow-up needed with 1-2 weeks, please.) Darlene Toscano MD [Primary Care Provider] - (Follow-up needed within 7 days of discharge) Myesha Fisher NP [NURSE PRACTITIONER] - (Post hospitalization - Follow up as planned) Carolee English MD [ [facility] STAFF PHYSICIAN] - (Follow-up needed with 1-2 weeks please) Activity:: Activity as Tolerated Equipment/Supplies:: Walker Diet:: heart healthy Discharge Orders Discharge Orders: Discharge Order (Routine); Ordered 08/10/24 Ordered By: Estephanie Cartagena DS: Summary Time Spent with Patient providing and/or coordinating discharge services: Greater than 30 minutes Status at Discharge Functional status at discharge: uses cane/walker Overall status at discharge: patient is progressing back to baseline Mental Status: mental status grossly normal Speech and Movement: speech and movement normal Mood: congruent mood Affect: normal affect Quality:SDOH Health Related Social Needs: No Data to Display Exam Narrative Exam Narrative: Constitutional Frail elderly female without acute distress HENMT: Facial structures with normal appearance w/o facial droop Eyes: Well aligned, intact ROM Neck: Normal ROM, no meningeal signs Neuro:alert and oriented to self, time, person, place. Without speech disturbance, positive left upper extremity weakness & more than left leg weakness residual effect from old CVA; cranial nerve II to XII intact. Resp:Unlabored breathing, clear lung bilaterally with diminished LLL Cardio: regular rhythm, S1, S2, capillary refill<3 sec., bilateral radial and dorsalis pedis pulses are positive, palpable GI: Abdomen is not distended, soft and non tender, bowel sounds are present Extremities: strength 5/5 right side, 3/5 left arm, 4/5 left leg Psych: RASS 0, congruent mood and normal affect. Psych Mental Status: mental status grossly normal Speech and Movement: speech and movement normal Mood: congruent mood Affect: normal affect DS: Data Vitals/I&O Vitals and I&O: Vital Signs Temperature 36.8 C 08/10/24 07:23 Temperature Source Tympanic 08/10/24 07:23 Pulse 58 L 08/10/24 07:23 Pulse 61 08/05/24 15:10 Respiratory Rate 16 08/10/24 07:23 Respiratory Effort Normal 08/05/24 16:16 Respiratory Depth Normal 08/05/24 16:16 Respiratory Pattern Normal 08/05/24 16:16 Blood Pressure 154/79 H 08/10/24 07:23 Blood Pressure Mean 80 08/05/24 14:51 Blood Pressure Position Supine 08/05/24 14:51 Pulse Oximetry 96 08/10/24 07:23 Oxygen Delivery Method Room Air 08/10/24 07:23 Oxygen Flow Rate 0 08/10/24 07:23 Pain Level 3 08/10/24 08:48 Comment RN notified 08/09/24 07:29 Intake & Output 08/09/24 08/09/24 08/10/24 11:59 23:59 11:59 Intake Total 350 / 350 1110 / 1110 Balance 350 / 350 1110 / 1110 Intake: IV 350 / 350 250 / 250 Oral 860 / 860 Other: Urine Color Yellow Yellow Yellow Urine Appearance Clear Urine Odor Normal Normal Normal Stool Size Large Stool Characteristics Soft PFSH All Active Problems (Updated 08/07/24 @ 17:55 by Leeann Doran NP) Atrial fibrillation (Chronic) Palliative care patient (Acute) On deep vein thrombosis (DVT) prophylaxis (Acute) Infiltrate of lower lobe of left lung present on imaging study (Acute) Stenosis of left subclavian artery (Acute) CVA (cerebral vascular accident) (Chronic) 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 MOCA 08/2023. 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 tPA not used due to HTN. Left displaced femoral neck fracture (~05/2022) Right lumbar radiculopathy Tobacco use disorder quit 2004 Breast lump or mass (07/24/04) left [place] [facility] [place] [place] Surgical History Status post hip hemiarthroplasty (06/20/22) S/p left posterior hip hemiarthroplasty S/P total left hip arthroplasty (06/20/22) H/O bilateral cataract extraction (~09/2016) Family History Mother , AGE 72 Osteoporosis Autoimmune neutropenia Father , AGE 72 Diabetes Essential hypertension Heart disease Myocardial infarction Stroke Asthma Sister Heart disease Sister Essential hypertension Sister Essential hypertension Sister Essential hypertension Sister Essential hypertension Brother Essential hypertension Brother Essential hypertension Son No problems noted. Son Hyperlipidemia Son Asthma Daughter No problems noted. Brother No problems noted. 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 Pets and animals: Yes Pets and animals: cat(s) and dog(s) Sexually active: No Do you think of yourself as: straight/heterosexual Current gender identity: female What is your relationship status?: How often do you talk on the phone with friends or family?: once per week How often do you get together with friends or relatives?: decline to answer How often do you attend muslim or congregation services?: decline to answer Do you belong to any clubs or organized social groups?: no Panel score (0-1 are the most socially isolated patients): 1 What type of physical activity do you participate in: walking Duration: < 15 minutes/day Frequency: 3-4 times per week Anna/Spiritism: Sikhism Special anna needs: No Seatbelt use: always Helmet use: Yes Helmet use: always Do you feel safe at home: Yes Do you feel safe in your relationship?: Yes Time Spent with Patient Time Spent with Patient: >85 minutes Time was spent: preparing to see the patient(eg.review tests), obtaining and/or reviewing separately otained hiistory, ordering medications,tests, procedures, referring, communicating with other health care giver, indepentently interpreting results, counseling the patient and care coordination
[2024-08-10 11:00] VITALS: BP 128/80; PULSE 54; RESP 16; TEMP 36.6; O2SAT 97
--- NOTE | 2024-08-10 13:17 | PTTR_ITS ---
PT Notes Visit Reasons: CVA Inpatient Physical Therapy Treatment Note [facility] Date: 08/10/2025 PRECAUTIONS: Fall, standard, aspiration risk SUBJECTIVE:Pt reports she did not sleep well last night . OBJECTIVE: presented seated in chair sleeping on first attempt at 9am. She requested to have PT later in the morning. At 1130, she was agreeable to participate. ? PAIN:denied VITALS: Monitored via telemetry throughout Therapeutic Activities ([id number]): Direct one-on-one instruction in dynamic activities to improve functional performance. ? BED MOBILITY/TRANSFERS? Rolling L/R: CGA with cues for bending knees and reaching for railing Supine-sit: min A x 2 trials via sidelying Sit to supine min A ?x 2 trials ? Sit-stand: min A of 1 ? x 1 trial from bed; max A of 1 from chair x 2 trial ? Stand-sit: Min assist of 1 to sit gently in chair? x 2trials? Provided skilled cues and instruction on performance and technique throughout. ? Did have patient perform ankle pumps, LAQ and marching for 10 reps each. GAIT? Assistive Device: FWW? Weight bearing: full Assist: once up in standing required only CGA ? Distance:? 30ft x1? Deviation: Slow steady gait, with short steps and decreased step height on Left unable to correct with verbal cue to increase step/ big step.? No SOB noted today with activity. ? ASSESSMENT:? Pt required increased assistance transfers this session, uncertain if increased assist related to fatigue . Pt demonstrates inability to clear left toes this session even with vrbal instruction. Pt anticipated to [facility] to [facility] for continued rehabilitation. PLAN: Continue to progress as able to tolerate, monitoring vitals. TREATMENT CODE/TIME: [id number] DISCHARGE RECOMMENDATION: Short term SNF
--- NOTE | 2024-08-10 15:04 | CHAPLAIN ---
I visited with Alma Rosa shortly before she was tranferred to [facility]& and brought her a prayer shawl. She was quite and reserved. I couldn't tell if she was aware she was being discharged or not. She said she was expecting her to visit later in the day.
--- NOTE | 2024-08-11 09:56 | PDOC.HHF2F ---
Home Health Referral Home Health Orders Clinical synopsis of why skilled professionals are needed: This 83-year-old female patient with a past medical history of hyperlipidemia, left-sided hemiplegia status post stroke to the right MCA, stenosis of the left internal carotid artery, stenosis of the left subclavian artery, hypertension presented today to the ED at [facility] on 08/05/24 for evaluation of increased left-sided hemiplegia symptoms and weakness with last well-known date as of 1800 the night prior to presentation. Workup in the ED was significant for WBC at 14, BUN and creatinine relatively coherent 31 and 1.9 with baseline around 1.3 and 20. Head and neck CTA showed a significant nonhemorrhagic infarct in the right basal ganglia and right periventricular white matter which was not evident on the prior study of 07/20/2023. Significant stenosis seen in the distal left common carotid artery and high-grade stenosis in the proximal left internal carotid artery, approximately 80-90 percent,critical stenosis or occlusion noted just beyond the origin of the left subclavian artery off the aortic ar no change seen in the multiple stable lacunar infarct in the left basal ganglia since there were noted in June 2023. Right thyroid lobe nodule again with recommendation for non-emergent ultrasound. Chest x-ray showed mild infiltrate to the left lower lobe pointing to pneumonia. [facility] teleneurology consultation was completed with recommendations for admission for MRI, aspirin increased to 325, ongoing Plavix, echocardiogram, physical therapy and occupational therapy without recommendation for tPA or thrombectomy by interventional neurology. However, neurovascular consult should be pursued for endarterectomy recommendations status post discharge; repeat carotid ultrasound scheduled for September 2024 at [facility] [place]. The hospitalist was consulted and patient admitted to the medical surgical floor with telemetry for evaluation and management of subacute right basal ganglia stroke, JH on CKD, pneumonia. In the ED the patient was treated with IV fluids, intravenous ceftriaxone and azithromycin and ASA 325 mg. During the stay, the patient continued to receive intravenous ceftriaxone and azithromycin until completion of treatment. The patient had mentioned stopping her statin due to increased sleepiness a few a couple of weeks prior to presentation;high dose statin therapy was reinitiated. Lipid panel showed an LDL of 123. The patient developed paroxysmal atrial fibrillation with rapid ventricular response and was started on metoprolol and apixaban. The patient had an has bled HAS-BLED score of 4 points or 8.9% risk of bleeding on current treatment and a CHA2D S2- VA score of 6 points or 15.5% risk of embolic event from the atrial fibrillation. Those were discussed with patient in shared decision making process. MRI was completed and showed no acute stroke. An echocardiogram was completed with the following impressions: Concentric left ventricular hypertrophy. There is prominent disproportional upper septal thickening. EF is 60%. Wall motion is normal Normal right ventricular size and function Both atria are normal in size Aortic valve is sclerotic and probably trileaflet. There is mild aortic stenosis with a mean gradient of 10 mmHg. Severe mitral annular calcification. There is systolic anterior motion of the mitral leaflets. There is mild mitral regurgitation Estimated right ventricular systolic pressure is 30 mmHg Ascending aorta measures 3.6 cm Patient initially stating that she was full code despite previous COLST form completed in October [address] Rizo where she was a DNR/DNI. Palliative care consult was completed and the patient referred to the CODE STATUS to DNR/DNI; she will need to follow-up outpatient. Physical therapy recommendations are for acute Rehab facility vs short term SNF for continued rehabilitation for CVA. The patient seen by SALES ENABLEMENT SPECIALIST with recommendation for MBSS to be completed outpatient. The patient will benefit from nursing, physical therapy, occupational therapy, and SALES ENABLEMENT SPECIALIST as well as from a medical assistant instructor at home as SNF was not a viable option. The patient will need cardiology follow-up to reevaluate Eliquis dosing as well as AV mehran blocking agent. The patient will need neurology follow-up. The patient will be discharged to [facility] [place] today. The patient will need to see her general care practitioner within 7 days of discharge. Medical diagnosis necessitation home health referral: CVA Hx with residual deficit, non-compliance to statin, atrial fibrillation on new meds Registered Nurse: Check all that apply Instruct on new or changed medication(s)/assess compliance: Ordered Assess for exacerbation of medical condition, instruct patient/caregivers on signs and symptoms to report for early detection: Ordered Physical Therapist: Check all that apply Increase strength & endurance for safe mobility at home: Ordered To design/establish home maintenance program: Ordered Fall reduction therapy program for patient with history of frequent falls: Ordered Home safety evaluation and teaching/gait training including stair management (if applicable): Ordered Occupational Therapist: Evaluate and treat for patient unable to perform ADL/IADL/self-care: Ordered Upper extremity strengthening, range and motion: Ordered Speech Therapist: Check all that apply For swallow evaluation/therapy due to dysphagia: Ordered Cognition/memory: Ordered Speech/communication disorders: Ordered Other: Seen by SALES ENABLEMENT SPECIALIST and MBSS needed and ordered outpatient Practical Nurse: Assist with community resources: Ordered Assist with buttermilk drier operator care planning: Ordered Home Bound Status Requires the aid of supportive device (check all that apply): Walker Describe why leaving home would require a considerable and taxing effort: Side effects from pain medication (sedation/drowsiness), Requires frequent rest periods and Safety Concerns: describe Encounter Date and Reason: I certify that a FTF encounter for this patient was performed on August 11, 2024 and that such encounter was related to the primary reason the patient requires home health services. The encounter was conducted in the following manner: By me as the certifying physician, BLOOD BANK CUSTODIAN, PA or By an inpatient physician, BLOOD BANK CUSTODIAN or PA during an inpatient stay who communicated findings to me, Certification And Authentication I certify that I composed the above information based on my clinical judgment relating to this patient's medical condition and, if applicable, clinical findings communicated to me by the NPP or inpatient physician who performed the FTF encounter. Name of Provider that will be monitoring home health services: Darlene Toscano
== END 2024-08-10 14:06 | disposition skilled nursing facility (03) | DRG 64 ==
LOC: ER 15:10 → MS 19:04
PROVIDERS: Nurse Practitioner Acute Care; Nurse Practitioner Family; Admitting Provider Family Medicine; Emergency Provider Emergency Medicine; PCP Family Medicine; Visit Provider Family Medicine
DX: I63.9 Cerebral infarction, unspecified (principal); J18.9 Pneumonia, unspecified organism; I69.354 Hemiplegia and hemiparesis following cerebral infarction affecting left non-dominant side; N17.9 Acute kidney failure, unspecified; I45.2 Bifascicular block; I77.1 Stricture of artery; R91.8 Other nonspecific abnormal finding of lung field; E78.2 Mixed hyperlipidemia; I48.91 Unspecified atrial fibrillation; I65.22 Occlusion and stenosis of left carotid artery; I08.0 Rheumatic disorders of both mitral and aortic valves; I12.9 Hypertensive chronic kidney disease with stage 1 through stage 4 chronic kidney disease, or unspecified chronic kidney disease; N18.9 Chronic kidney disease, unspecified; F41.8 Other specified anxiety disorders; R41.89 Other symptoms and signs involving cognitive functions and awareness; E78.5 Hyperlipidemia, unspecified; N39.498 Other specified urinary incontinence; I69.398 Other sequelae of cerebral infarction; Z79.899 Other long term (current) drug therapy; Z96.641 Presence of right artificial hip joint; Z66 Do not resuscitate; R00.1 Bradycardia, unspecified
CPT/HCPCS: 00123; 36415; 36416; 70496; 70498; 80048; 80053; 80061; 87637; 92610; 93005; 93306; 96365; 96372; 97112; 97116; 97161; 97162; 97530; 99285; 70551; 71045; 81003; 81015; 83036; 83735; 84484; 85025; 85610; 93010; 99223; 99232; 99233; 99239; G0378; J0456; J0696; J1650; J3490

== ENCOUNTER 2025-05-12 19:33 | Outpatient (REF) | payer OTHER, SELFPAY ==
[2025-05-12 19:45] LABS: Glucose Negative (Negative)
[2025-05-12 19:52] LABS: RBC >50 HPF (0-2); WBC >50 HPF (0-5)
== END 2025-05-12 19:34 | disposition home or self-care (01) ==
LOC: LBN 19:33
PROVIDERS: Visit Provider Nurse Practitioner Family
DX: N39.0 Urinary tract infection, site not specified (principal); R30.0 Dysuria
CPT/HCPCS: 81003; 81015; 87086